=== PATIENT | female | born 1985 | race Hispanic/Latino ===

== ENCOUNTER 2018-03-31 15:54 | Emergency (ER) | payer OTHER ==
--- NOTE | 2018-03-31 16:19 | ER ---
Nurse's Notes [facility] Name: Georgia Viera Age: 32 yrs Sex: Female : 1985 Arrival Date: 03/31/2018 Time: 15:57 Bed 26 Private MD: None, None Diagnosis: Adverse effect of other antidepressants Presentation: 03/31 16:03 Presenting complaint: Patient states: dizziness, no appetite, reports "I feel like I'm sv on a bad trip. I just don't feel right." Pt reports these symptoms after starting Wellbutrin a few days ago. 16:04 Method Of Arrival: Wheelchair sv 16:04 Transition of care: patient was not received from another setting of care. Onset of sv symptoms was March 2018. Note Pt reports that she was also prescribed Xanax and Lisinopril. Pt reports taking 2 tabs BID of Xanax instead of the prescribed amount. Care prior to arrival: None. 16:04 Acuity: MILI 3 sv 16:22 Risk Assessment: Do you want to hurt yourself or someone else? Patient reports no mg2 desire to harm self or others. Initial Sepsis Screen: Does the patient meet any 2 criteria? No. Patient's initial sepsis screen is negative. Does the patient have a suspected source of infection? No. Patient's initial sepsis screen is negative. 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 - Social history:: Smoking status: Patient/guardian denies using tobacco. - Ebola Screening: : No symptoms or risks identified at this time. Screenin:21 Abuse screen: Denies threats or abuse. Denies injuries from another. Nutritional mg2 screening: No deficits noted. Tuberculosis screening: No symptoms or risk factors identified. Fall Risk None identified. Assessment: 16:30 General: Appears in no apparent distress. comfortable, Behavior is calm, cooperative. mg2 Derm: Skin is intact, Skin is pink, warm \\T\\ dry. normal. Musculoskeletal: No signs and/or symptoms reported regarding the musculoskeletal system. 16:45 Pain: Denies pain. Neuro: Level of Consciousness is awake, alert, obeys commands, mg2 Oriented to person, place, time, situation. Cardiovascular: Capillary refill < 3 seconds Patient's skin is warm and dry. Respiratory: Airway is patent Respiratory effort is even, unlabored, Respiratory pattern is regular, symmetrical. GI: No signs and/or symptoms were reported involving the gastrointestinal system. : No signs and/or symptoms were reported regarding the genitourinary system. EENT: No signs and/or symptoms were reported regarding the EENT system. Vital Signs: 16:11 BP 137 / 99; Pulse 98; Resp 20; Pulse Ox 96% ; Weight 86.18 kg; Height 5 ft. 1 in. sv (154.94 cm); Pain 0/10; 16:23 BP 126 / 91 (auto/reg); Pulse 85; Resp 18 S; Pulse Ox 97% on R/A; Pain 0/10; jp3 16:11 Body Mass Index 35.90 (86.18 kg, 154.94 cm) sv ED Course: 15:57 Patient arrived in ED. sb2 15:57 None, None is Private Physician. sb2 16:03 Edith Rosenberg FNP-C [facility]. snw 16:03 Jasper Coleman MD is Attending Physician. snw 16:03 Arm band placed on right wrist. Patient placed in an exam room, on a stretcher. sv 16:10 Reza Heard RN is Primary Nurse. mg2 16:10 Triage completed. sv 16:17 Raj Zamora MD is Referral Physician. snw 16:22 No provider procedures requiring assistance completed. Patient did not have IV access mg2 during this emergency room visit. 16:47 Patient has correct armband on for positive identification. mg2 Administered Medications: No medications were administered Outcome: 16:18 Discharge ordered by . snw 16:47 Discharged to home ambulatory. mg2 16:47 Condition: good 16:47 Discharge instructions given to patient, Instructed on discharge instructions, follow up and referral plans. medication usage, Demonstrated understanding of instructions, follow-up care, medications, Prescriptions given X 1. 16:47 Patient left the ED. mg2 Signatures: Kalpana Marinelli RN RN Edith Rosenberg FNP-C CHIEF ANALYTICS OFFICER-Csnw Roselyn Matute sb2 Reza Heard, RN RN mg2 Juan Diego Colin jp3
--- NOTE | 2018-03-31 16:19 | EDPHYS ---
Physician Documentation [facility] Name: Georgia Viera Age: 32 yrs Sex: Female : 1985 Arrival Date: 03/31/2018 Time: 15:57 Bed 26 Private MD: None, None ED Physician Jasper Coleman HPI: 03/31 16:33 This 32 yrs old Female presents to ER via Wheelchair with complaints of snw Dizziness, Doesn't Feel Right. 16:33 The patient presents with pt states she has taken wellbutrin since , threw the snw medication away yesterday because it was making her feel weird, anxious, difficulty concentrating, nauseated. Pt states she just started Wellbutrin Tuesday. Stopped taking Lunesta recently as it left a bad taste in her mouth. Pt states she ran out of Xanax about a week ago.. Onset: The symptoms/episode began/occurred suddenly, 4 day(s) ago, and became worse. Context: occurred at home. Modifying factors: The symptoms are alleviated by nothing. Associated signs and symptoms: Pertinent positives: agitation, nausea, inability to concentrate, anxious, Pertinent negatives: SI, HI. Patient's baseline: Neuro: alert and fully oriented, Motor: no deficits, Ambulation: walks without assistance, Speech: normal. It is unknown whether or not the patient has had similar symptoms in the past. The patient has been recently seen by a physician: the patient's primary care provider, with similar presenting complaints, placed on Wellbutrin, but the patient's symptoms have worsened. 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 - Social history:: Smoking status: Patient/guardian denies using tobacco. - Ebola Screening: : No symptoms or risks identified at this time. ROS: 16:32 Eyes: Negative for injury, pain, redness, and discharge, ENT: Negative for injury, snw pain, and discharge, Neck: Negative for injury, pain, and swelling, Cardiovascular: Negative for chest pain, palpitations, and edema, Respiratory: Negative for shortness of breath, cough, wheezing, and pleuritic chest pain. 16:32 Back: Negative for injury and pain, : Negative for injury, bleeding, discharge, and swelling, MS/Extremity: Negative for injury and deformity, Skin: Negative for injury, rash, and discoloration, Neuro: Negative for headache, weakness, numbness, tingling, and seizure. 16:32 Constitutional: Positive for fatigue, malaise, poor PO intake. 16:32 Abdomen/GI: Positive for nausea, anorexia. 16:32 Psych: Positive for anxiety, depression, insomnia, Negative for suicide gesture, suicidal ideation. Exam: 16:26 Constitutional: This is a well developed, well nourished patient who is awake, alert, snw and in no acute distress. Head/Face: Normocephalic, atraumatic. Eyes: Pupils equal round and reactive to light, extra-ocular motions intact. Lids and lashes normal. Conjunctiva and sclera are non-icteric and not injected. Cornea within normal limits. Periorbital areas with no swelling, redness, or edema. ENT: Nares patent. No nasal discharge, no septal abnormalities noted. Tympanic membranes are normal and external auditory canals are clear. Oropharynx with no redness, swelling, or masses, exudates, or evidence of obstruction, uvula midline. Mucous membranes moist. Neck: Trachea midline, no thyromegaly or masses palpated, and no cervical lymphadenopathy. Supple, full range of motion without nuchal rigidity, or vertebral point tenderness. No Meningismus. Chest/axilla: Normal chest wall appearance and motion. Nontender with no deformity. No lesions are appreciated. Cardiovascular: Regular rate and rhythm with a normal S1 and S2. No gallops, murmurs, or rubs. Normal PMI, no JVD. No pulse deficits. Respiratory: Lungs have equal breath sounds bilaterally, clear to auscultation and percussion. No rales, rhonchi or wheezes noted. No increased work of breathing, no retractions or nasal flaring. Abdomen/GI: Soft, non-tender, with normal bowel sounds. No distension or tympany. No guarding or rebound. No evidence of tenderness throughout. Back: No spinal tenderness. No costovertebral tenderness. Full range of motion. Skin: Warm, dry with normal turgor. Normal color with no rashes, no lesions, and no evidence of cellulitis. MS/ Extremity: Pulses equal, no cyanosis. Neurovascular intact. Full, normal range of motion. Neuro: Awake and alert, GCS 15, oriented to person, place, time, and situation. Cranial nerves II-XII grossly intact. Motor strength 5/5 in all extremities. Sensory grossly intact. Cerebellar exam normal. Normal gait. Psych: Awake, alert, with orientation to person, place and time. Behavior and affect are within normal limits. Depressed mood, no SI, HI Vital Signs: 16:11 BP 137 / 99; Pulse 98; Resp 20; Pulse Ox 96% ; Weight 86.18 kg; Height 5 ft. 1 in. sv (154.94 cm); Pain 0/10; 16:23 BP 126 / 91 (auto/reg); Pulse 85; Resp 18 S; Pulse Ox 97% on R/A; Pain 0/10; jp3 16:11 Body Mass Index 35.90 (86.18 kg, 154.94 cm) sv MDM: 16:04 Patient medically screened. snw 16:29 Data reviewed: vital signs, nurses notes. Data interpreted: Pulse oximetry: on room air snw is 96 %. Interpretation: normal. Counseling: I had a detailed discussion with the patient and/or guardian regarding: the historical points, exam findings, and any diagnostic results supporting the discharge/admit diagnosis, the presence of at least one elevated blood pressure reading (>120/80) during this emergency department visit, the need for outpatient follow up, for definitive care, to return to the emergency department if symptoms worsen or persist or if there are any questions or concerns that arise at home. Special discussion: I have referred the patient to see his PCP for further evaluation of high blood pressure. Based on the history and exam findings, there is no indication for further emergent testing or inpatient evaluation. I discussed with the patient/guardian the need to see the primary care provider for further evaluation of the symptoms. Administered Medications: No medications were administered Disposition: 04/01 08:26 Co-signature as Attending Physician, Jasper Coleman MD I agree with the assessment and wa plan of care. Disposition: 03/31/18 16:18 Discharged to Home. Impression: Adverse effect of other antidepressants. - Condition is Stable. - Discharge Instructions: Hypertension, Major Depressive Disorder. - Prescriptions for buspirone (bulk) - take 10 milligram by ORAL route 1-3 times daily for 30 days; 90 tablet. - Medication Reconciliation Form, Thank You Letter, Antibiotic Education, Prescription Opioid Use form. - Follow up: Raj Zamora MD; When: 2 - 3 days; Reason: Recheck today's complaints, Continuance of care. Signatures: Kalpana Marinelli, RN RN sv Edith Rosenberg, STATEMENT PROCESSOR-C STATEMENT PROCESSOR-Csnw Jasper Coleman MD MD wa Gardose, Michele, RN RN mg2 Corrections: (The following items were deleted from the chart) 03/31 16:47 16:18 03/31/2018 16:18 Discharged to Home. Impression: Adverse effect of other mg2 antidepressants. Condition is Stable. Forms are Medication Reconciliation Form, Thank You Letter, Antibiotic Education, Prescription Opioid Use. Follow up: Raj Zamora; When: 2 - 3 days; Reason: Recheck today's complaints, Continuance of care. snw
[2018-03-31 16:54] VITALS: BP 126/91; O2SAT 97
== END 2018-03-31 16:47 | disposition home or self-care (01) ==
LOC: ER 15:54
DX: R42 Dizziness and giddiness (principal); F32.9 Major depressive disorder, single episode, unspecified; I10 Essential (primary) hypertension; T43.295A Adverse effect of other antidepressants, initial encounter
CPT/HCPCS: 99282

== ENCOUNTER 2018-09-01 13:24 | Emergency (ER) | payer OTHER ==
[2018-09-01 14:07] LABS: Absolute Lymphocytes (CBC) 1.2 K/uL (0.7-4.9); Absolute Monocytes 0.4 K/uL (0.1-1.3); Absolute Neutrophil 5.4 K/uL (1.8-8.0); Basophils % 0.8 % (0-1.3); Eosinophils % 2.5 % (0-4.4); Lymphocytes % 16.9 % (15.3-44.8); MPV 9.7 fL (7.6-11.3); Monocytes % 5.8 % (3.3-12.3); RBC Red Blood Cell Count 4.08 M/uL (3.86-4.86)
[2018-09-01 14:29] LABS: ALT/SGPT 19 U/L (12-78); AST/SGOT 10 U/L (15-37); Albumin 3.2 g/dL (3.4-5.0); Alkaline Phosphatase 78 U/L (45-117); BUN Blood Urea Nitrogen 16 mg/dL (7-18); Bicarbonate 27 mmol/L (21-32); Bilirubin Direct < 0.1 mg/dL (0-0.2); Bilirubin Total 0.1 mg/dL (0.2-1.0); Glucose Level 97 mg/dL (74-106); Magnesium 2.1 mg/dL (1.8-2.4); Potassium 3.8 mmol/L (3.5-5.1); Protein, Total 6.4 g/dL (6.4-8.2); Sodium Level 143 mmol/L (136-145); Troponin (Emerg Dept Use Only) < 0.02 ng/mL (0.0-0.045)
--- NOTE | 2018-09-01 14:36 | RAD REPORT ---
EXAM DESCRIPTION: RAD - Chest Single View - 09/01/2018 2:09 pm CLINICAL HISTORY: CHEST PAIN Chest pain. COMPARISON: No comparisons FINDINGS: Portable technique limits examination quality. The lungs are grossly clear. The heart is normal in size. No displaced fractures. IMPRESSION: No acute intrathoracic process suspected.
--- NOTE | 2018-09-01 15:03 | EDPHYS ---
Physician Documentation [facility] Name: Georgia Viera Age: 32 yrs Sex: Female : 1985 Arrival Date: 09/01/2018 Time: 13:27 Bed 23 Private MD: ED Physician Neena De La Garza HPI: 09/01 13:50 This 32 yrs old Female presents to ER via Ambulatory with complaints of Chest pm1 Pain. 13:50 The patient or guardian reports chest pain that is located primarily in the mid-sternal pm1 area. The pain does not radiate. Associated signs and symptoms: The patient has no apparent associated signs or symptoms, Pertinent negatives: abdominal pain, cough, diaphoresis, dizziness, headache, lightheadedness, nausea, near syncope, palpitations, shortness of breath, vomiting. The chest pain is described as burning. Duration: The patient or guardian reports a single episode. Modifying factors: the symptoms are aggravated by deep breath, eating, movement. Severity of pain: in the emergency department the pain is unchanged despite home interventions, Tums, Maalox not working. The patient has not experienced similar symptoms in the past. The patient has not recently seen a physician. 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 - Social history:: Smoking status: . - Ebola Screening: : Patient denies travel to an Ebola-affected area in the 21 days before illness onset. ROS: 13:50 Constitutional: Negative for fever, chills, and weight loss, Eyes: Negative for injury, pm1 pain, redness, and discharge, ENT: Negative for injury, pain, and discharge, Neck: Negative for injury, pain, and swelling, Respiratory: Negative for shortness of breath, cough, wheezing, and pleuritic chest pain, Abdomen/GI: Negative for abdominal pain, nausea, vomiting, diarrhea, and constipation. 13:50 Back: Negative for injury and pain, : Negative for injury, bleeding, discharge, and swelling, MS/Extremity: Negative for injury and deformity, Skin: Negative for injury, rash, and discoloration, Neuro: Negative for headache, weakness, numbness, tingling, and seizure. 13:50 Cardiovascular: Positive for chest pain, Negative for edema, orthopnea, palpitations. Exam: 13:50 Constitutional: This is a well developed, well nourished patient who is awake, alert, pm1 and in no acute distress. Head/Face: Normocephalic, atraumatic. Eyes: Pupils equal round and reactive to light, extra-ocular motions intact. Lids and lashes normal. Conjunctiva and sclera are non-icteric and not injected. Cornea within normal limits. Periorbital areas with no swelling, redness, or edema. ENT: Nares patent. No nasal discharge, no septal abnormalities noted. Tympanic membranes are normal and external auditory canals are clear. Oropharynx with no redness, swelling, or masses, exudates, or evidence of obstruction, uvula midline. Mucous membranes moist. Neck: Trachea midline, no thyromegaly or masses palpated, and no cervical lymphadenopathy. Supple, full range of motion without nuchal rigidity, or vertebral point tenderness. No Meningismus. 13:50 Cardiovascular: Regular rate and rhythm with a normal S1 and S2. No gallops, murmurs, or rubs. Normal PMI, no JVD. No pulse deficits. Respiratory: Lungs have equal breath sounds bilaterally, clear to auscultation and percussion. No rales, rhonchi or wheezes noted. No increased work of breathing, no retractions or nasal flaring. Abdomen/GI: Soft, non-tender, with normal bowel sounds. No distension or tympany. No guarding or rebound. No evidence of tenderness throughout. Back: No spinal tenderness. No costovertebral tenderness. Full range of motion. Skin: Warm, dry with normal turgor. Normal color with no rashes, no lesions, and no evidence of cellulitis. MS/ Extremity: Pulses equal, no cyanosis. Neurovascular intact. Full, normal range of motion. 13:50 Chest/axilla: Inspection: normal, Palpation: tenderness, of the mid-sternal area. 13:50 Neuro: Orientation: is normal, Motor: is normal, moves all fours, Gait: is steady, at a normal pace, without difficulty. Vital Signs: 13:31 BP 104 / 73; Pulse 96; Resp 18; Temp 98.7; Pulse Ox 100% ; Weight 86.18 kg; Height 5 sv ft. 1 in. (154.94 cm); Pain 8/10; 14:20 BP 107 / 73; Pulse 82; Resp 15; Pulse Ox 100% on R/A; tw2 15:24 BP 109 / 64; Pulse 79; Resp 17; Pulse Ox 100% on R/A; tw2 13:31 Body Mass Index 35.90 (86.18 kg, 154.94 cm) sv MDM: 13:37 Patient medically screened. pm1 15:02 Data reviewed: vital signs. Data interpreted: Pulse oximetry: on room air is 100 %. pm1 Interpretation: normal. Counseling: I had a detailed discussion with the patient and/or guardian regarding: the historical points, exam findings, and any diagnostic results supporting the discharge/admit diagnosis, lab results, radiology results, the need for outpatient follow up, to return to the emergency department if symptoms worsen or persist or if there are any questions or concerns that arise at home. 09/01 13:41 Order name: Basic Metabolic Panel pm09/01 13:41 Order name: CBC with Diff pm09/01 13:41 Order name: LFT's pm09/01 13:41 Order name: Magnesium pm09/01 13:41 Order name: Troponin (emerg Dept Use Only) pm1 09/01 14:11 Order name: CBC with Automated Diff; Complete Time: 14:15 EDMS 09/01 13:41 Order name: XRAY Chest (1 view) pm09/01 14:29 Order name: Basic Metabolic Panel; Complete Time: 14:39 EDMS 09/01 14:29 Order name: Liver (Hepatic) Function; Complete Time: 14:39 EDMS 09/01 14:29 Order name: Troponin (Emerg Dept Use Only); Complete Time: 14:39 EDMS 09/01 14:29 Order name: Magnesium; Complete Time: 14:39 EDMS 09/01 14:37 Order name: RAD; Complete Time: 14:39 EDMS 09/01 13:41 Order name: EKG; Complete Time: 13:42 pm1 09/01 13:41 Order name: Cardiac monitoring; Complete Time: 13:41 pm1 09/01 13:41 Order name: EKG - Nurse/Tech; Complete Time: 13:42 pm1 09/01 13:41 Order name: IV Saline Lock; Complete Time: 13:50 pm1 09/01 13:41 Order name: Labs collected and sent; Complete Time: 13:50 pm1 09/01 13:41 Order name: O2 Per Protocol; Complete Time: 13:42 pm1 09/01 13:41 Order name: O2 Sat Monitoring; Complete Time: 13:42 pm1 Administered Medications: 15:01 Drug: GI Cocktail without - (Maalox Suspension 30 ml, Lidocaine Liquid 2 % 15 mg2 ml) Route: PO; 15:17 Follow up: Response: No adverse reaction; Pain is decreased tw2 15:18 Drug: Pepcid 20 mg Route: IVP; Site: right antecubital; tw2 15:24 Follow up: Response: No adverse reaction tw2 Disposition: 16:45 Co-signature as Attending Physician, Neena De La Garza MD. [facility] Disposition: 09/01/18 15:03 Discharged to Home. Impression: Chest pain, unspecified. - Condition is Stable. - Discharge Instructions: Nonspecific Chest Pain. - Prescriptions for Pepcid 20 mg Oral Tablet - take 1 tablet by ORAL route every 12 hours for 10 days; 20 tablet. - Medication Reconciliation Form, Thank You Letter, Antibiotic Education, Prescription Opioid Use, Work release form form. - Follow up: Emergency Department; When: As needed; Reason: Worsening of condition. Follow up: Private Physician; When: 2 - 3 days; Reason: Recheck today's complaints, Continuance of care, Re-evaluation by your physician. - Problem is new. - Symptoms have improved. Signatures: Dispatcher [employer] EDMS Kalpana Marinelli RN JEFF sv Tiago Ross, MARIFER REMOTE PILOT OPERATOR pm1 Almaz Chou RN RN tw2 Neena De La Garza MD MD ma2 Reza Heard RN RN mg2 Corrections: (The following items were deleted from the chart) 15:25 15:03 09/01/2018 15:03 Discharged to Home. Impression: Chest pain, unspecified. tw2 Condition is Stable. Forms are Medication Reconciliation Form, Thank You Letter, Antibiotic Education, Prescription Opioid Use. Follow up: Emergency Department; When: As needed; Reason: Worsening of condition. Follow up: Private Physician; When: 2 - 3 days; Reason: Recheck today's complaints, Continuance of care, Re-evaluation by your physician. Problem is new. Symptoms have improved. pm1
--- NOTE | 2018-09-01 15:03 | ER ---
Nurse's Notes [facility] Name: Georgia Viera Age: 32 yrs Sex: Female : 1985 Arrival Date: 09/01/2018 Time: 13:27 Bed 23 Private MD: Diagnosis: Chest pain, unspecified Presentation: 09/01 13:30 Presenting complaint: Patient states: midsternal chest pain x 1 week, movement makes it sv worse and I've tried taking reflux meds and gas-x and tums with no relief. Transition of care: patient was not received from another setting of care. Onset of symptoms was August 25, 2018. Care prior to arrival: None. 13:30 Method Of Arrival: Ambulatory sv 13:30 Acuity: MILI 3 sv 13:35 Risk Assessment: Do you want to hurt yourself or someone else? Patient reports no tw2 desire to harm self or others. Initial Sepsis Screen: Does the patient meet any 2 criteria? No. Patient's initial sepsis screen is negative. Does the patient have a suspected source of infection? No. Patient's initial sepsis screen is negative. Triage Assessment: 13:32 General: Appears in no apparent distress. uncomfortable, Behavior is calm, cooperative, sv appropriate for age. Pain: Complains of pain in mid-sternal area Pain currently is 8 out of 10 on a pain scale. Neuro: Level of Consciousness is awake, alert, obeys commands, Oriented to person, place, time, situation, Moves all extremities. Full function Gait is steady. Respiratory: Airway is patent Respiratory effort is even, unlabored, Respiratory pattern is regular, symmetrical. 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 - Social history:: Smoking status: . - Ebola Screening: : Patient denies travel to an Ebola-affected area in the 21 days before illness onset. Screenin:35 Abuse screen: Denies threats or abuse. Nutritional screening: No deficits noted. tw2 Tuberculosis screening: No symptoms or risk factors identified. Fall Risk None identified. Assessment: 13:36 Pain: Pain does not radiate. Pain began 1 week ago. tw2 13:36 General: Appears in no apparent distress. Behavior is calm, cooperative, appropriate tw2 for age. Pain: Complains of pain in mid-sternal area. Neuro: Level of Consciousness is awake, alert, obeys commands, Oriented to person, place, time, situation. Cardiovascular: Reports chest pain, Heart tones S1 S2 Patient's skin is warm and dry. Respiratory: Airway is patent Respiratory effort is even, unlabored, Respiratory pattern is regular, symmetrical, Breath sounds are clear bilaterally. GI: No signs and/or symptoms were reported involving the gastrointestinal system. Abdomen is flat, Bowel sounds present X 4 quads. : No signs and/or symptoms were reported regarding the genitourinary system. EENT: No signs and/or symptoms were reported regarding the EENT system. Derm: No signs and/or symptoms reported regarding the dermatologic system. Musculoskeletal: Range of motion: intact in all extremities. 13:39 Reassessment: provider at bedside at this time. tw2 13:59 Reassessment: xray at bedside at this time. tw2 14:20 Reassessment: Patient appears in no apparent distress at this time. No changes from tw2 previously documented assessment. Patient and/or family updated on plan of care and expected duration. Pain level reassessed. Patient is alert, oriented x 3, equal unlabored respirations, skin warm/dry/pink. 15:23 Reassessment: Patient appears in no apparent distress at this time. Patient and/or tw2 family updated on plan of care and expected duration. Pain level reassessed. Patient is alert, oriented x 3, equal unlabored respirations, skin warm/dry/pink. Patient states feeling better. Patient states symptoms have improved. Vital Signs: 13:31 BP 104 / 73; Pulse 96; Resp 18; Temp 98.7; Pulse Ox 100% ; Weight 86.18 kg; Height 5 sv ft. 1 in. (154.94 cm); Pain 8/10; 14:20 BP 107 / 73; Pulse 82; Resp 15; Pulse Ox 100% on R/A; tw2 15:24 BP 109 / 64; Pulse 79; Resp 17; Pulse Ox 100% on R/A; tw2 13:31 Body Mass Index 35.90 (86.18 kg, 154.94 cm) sv ED Course: 13:27 Patient arrived in ED. as 13:31 Triage completed. sv 13:32 Arm band placed on. sv 13:34 Almaz Chou, RN is Primary Nurse. tw2 13:35 Bed in low position. Call light in reach. Adult w/ patient. snag grinder on. Pulse tw2 ox on. NIBP on. 13:35 Patient maintains SpO2 saturation greater than 95% on room air. tw2 13:36 Tiago Ross, MARIFER is PHCP. pm1 13:36 Neena De La Garza MD is Attending Physician. pm1 13:45 Inserted saline lock: 22 gauge in right antecubital area, using aseptic technique. tw2 Blood collected. 13:54 EKG done, by surg tech. reviewed by Tiago Ross NP. sm3 15:05 Awaiting: f/u evaluation of GI cocktail prior to discharge. tw2 15:24 No provider procedures requiring assistance completed. IV discontinued, intact, tw2 bleeding controlled, No redness/swelling at site. Pressure dressing applied. Administered Medications: 15:01 Drug: GI Cocktail without - (Maalox Suspension 30 ml, Lidocaine Liquid 2 % 15 mg2 ml) Route: PO; 15:17 Follow up: Response: No adverse reaction; Pain is decreased tw2 15:18 Drug: Pepcid 20 mg Route: IVP; Site: right antecubital; tw2 15:24 Follow up: Response: No adverse reaction tw2 Outcome: 15:03 Discharge ordered by MD. pm1 15:24 Discharged to home ambulatory. tw2 15:24 Condition: stable 15:24 Discharge instructions given to patient, Instructed on discharge instructions, follow up and referral plans. medication usage, Demonstrated understanding of instructions, follow-up care, medications, Prescriptions given X 1. 15:25 Patient left the ED. tw2 Signatures: Kalpana Marinelli RN RN sv Martinez, Amelia as Tiago Ross, COAT OPERATOR COAT OPERATOR pm1 Almaz Chou RN RN tw2 Reza Heard RN RN mg2 Shabnam Vazquez sm3 Corrections: (The following items were deleted from the chart) 13:33 13:31 Pulse 96bpm; Resp 18bpm; Pulse Ox 100%; Temp 98.7F; 86.18 kg; Height 5 ft. 1 in.; sv BMI: 35.9; Pain 8/10; sv
[2018-09-01] MEDS ORDERED: LIDOCAINE VISCOUS 2% SOLN 15 ML UDC ONE (15:07)
[2018-09-01] MEDS ORDERED: MAGNE/ALUM HYDROXD 30 ML UCUP ONE (15:07)
[2018-09-01] MEDS ORDERED: FAMOTIDINE 20 MG/2 ML VIAL IV ONE (15:27)
[2018-09-01 15:45] VITALS: O2SAT 100
[2018-09-01 15:46] VITALS: TEMP 98.7
[2018-09-01 15:48] VITALS: BP 109/64
--- NOTE | 2018-09-01 21:21 | EKG ---
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
== END 2018-09-01 15:25 | disposition home or self-care (01) ==
LOC: ER 13:24
DX: R07.9 Chest pain, unspecified (principal); I10 Essential (primary) hypertension; F32.9 Major depressive disorder, single episode, unspecified
CPT/HCPCS: 36415; 71045; 80048; 80076; 83735; 84484; 85025; 93005; 96374; 99285

== ENCOUNTER 2018-09-16 20:37 | Emergency (ER) | payer OTHER ==
--- NOTE | 2018-09-16 21:18 | ER ---
Nurse's Notes [facility] Name: Georgia Viera Age: 33 yrs Sex: Female : 1985 Arrival Date: 09/16/2018 Time: 20:40 Bed 20 Private MD: Diagnosis: Diarrhea, unspecified;Vomiting, unspecified Presentation: 09/16 20:46 Presenting complaint: Patient states: I have been vomiting and having diarrhea for the jb4 past 2 days. and started having chills today. I came in because I noticed I had "black stuff" on my tongue. 20:46 Transition of care: patient was not received from another setting of care. Onset of jb4 symptoms was September 14, 2018. Risk Assessment: Do you want to hurt yourself or someone else? Patient reports no desire to harm self or others. Initial Sepsis Screen: Does the patient meet any 2 criteria? No. Patient's initial sepsis screen is negative. Does the patient have a suspected source of infection? No. Patient's initial sepsis screen is negative. Care prior to arrival: None. 20:46 Method Of Arrival: Ambulatory jb4 20:46 Acuity: MILI 3 jb4 Triage Assessment: 20:46 General: Appears in no apparent distress. comfortable, Behavior is calm, cooperative, jb4 appropriate for age, Pt reports taking Pepto-Bismol . Pain: Complains of pain in abdomen Pain does not radiate. Pain currently is 0 out of 10 on a pain scale. at worst was 8 out of 10 on a pain scale. Quality of pain is described as crampy, Pain began 2-3 days ago. Is intermittent. EENT: tongue has black on it.. Neuro: Level of Consciousness is awake, alert, obeys commands, Oriented to person, place, time, situation. Cardiovascular: Patient's skin is warm and dry. Respiratory: Airway is patent Respiratory effort is even, unlabored, Respiratory pattern is regular, symmetrical. GI: Reports lower abdominal pain, upper abdominal pain, diarrhea, nausea, vomiting. : No signs and/or symptoms were reported regarding the genitourinary system. Derm: Skin is intact, Skin is pink, warm \\T\\ dry. Musculoskeletal: Circulation, motion, and sensation intact. 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 - Social history:: Smoking status: Patient uses tobacco products, 1 pack per week. - Ebola Screening: : No symptoms or risks identified at this time. Screenin:46 Abuse screen: Denies threats or abuse. Nutritional screening: No deficits noted. jb4 Tuberculosis screening: No symptoms or risk factors identified. Fall Risk None identified. Assessment: 20:46 General: See triage assessment.. jb4 21:31 Reassessment: Patient appears in no apparent distress at this time. Patient and/or jb4 family updated on plan of care and expected duration. Pain level reassessed. Patient is alert, oriented x 3, equal unlabored respirations, skin warm/dry/pink. Vital Signs: 20:46 BP 109 / 72; Pulse 71; Resp 18; Temp 98.5(O); Pulse Ox 99% on R/A; Weight 83.91 kg (R); jb4 Height 5 ft. 1 in. (154.94 cm) (R); Pain 0/10; 21:30 BP 109 / 68; Pulse 76; Resp 16; Pulse Ox 100% on R/A; jb4 20:46 Body Mass Index 34.96 (83.91 kg, 154.94 cm) jb4 ED Course: 20:40 Patient arrived in ED. es 20:46 Malcolm Coleman, RN is Primary Nurse. jb4 20:46 Arm band placed on left wrist. jb4 20:46 Patient has correct armband on for positive identification. Bed in low position. Call jb4 light in reach. Side rails up X 1. Pulse ox on. NIBP on. 20:52 [facility]-C [facility]. snw 20:52 Antoni Meek MD is Attending Physician. snw 20:57 Triage completed. jb4 21:33 No provider procedures requiring assistance completed. Patient did not have IV access jb4 during this emergency room visit. Administered Medications: 21:27 Drug: Zofran 4 mg Route: PO; jb4 21:30 Follow up: Response: No adverse reaction; Nausea is decreased jb4 Outcome: 21:17 Discharge ordered by MD. addison 21:33 Discharged to home ambulatory. jb4 21:33 Condition: stable 21:33 Discharge instructions given to patient, Instructed on discharge instructions, follow up and referral plans. medication usage, Demonstrated understanding of instructions, follow-up care, medications. 21:34 Patient left the ED. jb4 Signatures: Edith Rosenberg, RAIL DETECTOR CAR OPERATOR-C RAIL DETECTOR CAR OPERATOR-Csnw Madai Jha James, RN RN jb4
--- NOTE | 2018-09-16 21:18 | EDPHYS ---
Physician Documentation [facility] Name: Georgia Viera Age: 33 yrs Sex: Female : 1985 Arrival Date: 09/16/2018 Time: 20:40 Bed 20 Private MD: ED Physician Antoni Meek HPI: 09/16 21:15 This 33 yrs old Female presents to ER via Ambulatory with complaints of snw Vomiting/Diarrhea, CHILLS. 21:15 The patient presents to the emergency department with vomiting, diarrhea. Onset: The snw symptoms/episode began/occurred suddenly, 2 day(s) ago, and became persistent. Possible causes: sick contacts, works at [employer]. The symptoms are aggravated by nothing. Associated signs and symptoms: Pertinent positives: diarrhea, vomiting, Pertinent negatives: abdominal pain, GI bleeding. Severity of symptoms: At their worst the symptoms were mild moderate in the emergency department the symptoms are unchanged. It is unknown whether or not the patient has had similar symptoms in the past. The patient has not recently seen a physician. 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 - Social history:: Smoking status: Patient uses tobacco products, 1 pack per week. - Ebola Screening: : No symptoms or risks identified at this time. ROS: 21:11 Constitutional: Negative for fever, chills, and weight loss, Eyes: Negative for injury, snw pain, redness, and discharge, ENT: Negative for injury, pain, and discharge, Neck: Negative for injury, pain, and swelling, Cardiovascular: Negative for chest pain, palpitations, and edema, Respiratory: Negative for shortness of breath, cough, wheezing, and pleuritic chest pain, Abdomen/GI: Negative for abdominal pain, nausea, and constipation, + vomiting and diarrhea Back: Negative for injury and pain, : Negative for injury, bleeding, discharge, and swelling, MS/Extremity: Negative for injury and deformity, Skin: Negative for injury, rash, and discoloration, Neuro: Negative for headache, weakness, numbness, tingling, and seizure. Exam: 21:11 Constitutional: This is a well developed, well nourished patient who is awake, alert, snw and in no acute distress. Head/Face: Normocephalic, atraumatic. Eyes: Pupils equal round and reactive to light, extra-ocular motions intact. Lids and lashes normal. Conjunctiva and sclera are non-icteric and not injected. Cornea within normal limits. Periorbital areas with no swelling, redness, or edema. ENT: Nares patent. No nasal discharge, no septal abnormalities noted. Tympanic membranes are normal and external auditory canals are clear. Oropharynx with no redness, swelling, or masses, exudates, or evidence of obstruction, uvula midline. Mucous membranes moist. Neck: Trachea midline, no thyromegaly or masses palpated, and no cervical lymphadenopathy. Supple, full range of motion without nuchal rigidity, or vertebral point tenderness. No Meningismus. Chest/axilla: Normal chest wall appearance and motion. Nontender with no deformity. No lesions are appreciated. Cardiovascular: Regular rate and rhythm with a normal S1 and S2. No gallops, murmurs, or rubs. Normal PMI, no JVD. No pulse deficits. Respiratory: Lungs have equal breath sounds bilaterally, clear to auscultation and percussion. No rales, rhonchi or wheezes noted. No increased work of breathing, no retractions or nasal flaring. Abdomen/GI: Soft, non-tender, with normal bowel sounds. No distension or tympany. No guarding or rebound. No evidence of tenderness throughout. Back: No spinal tenderness. No costovertebral tenderness. Full range of motion. Skin: Warm, dry with normal turgor. Normal color with no rashes, no lesions, and no evidence of cellulitis. MS/ Extremity: Pulses equal, no cyanosis. Neurovascular intact. Full, normal range of motion. Neuro: Awake and alert, GCS 15, oriented to person, place, time, and situation. Cranial nerves II-XII grossly intact. Motor strength 5/5 in all extremities. Sensory grossly intact. Cerebellar exam normal. Normal gait. Vital Signs: 20:46 BP 109 / 72; Pulse 71; Resp 18; Temp 98.5(O); Pulse Ox 99% on R/A; Weight 83.91 kg (R); jb4 Height 5 ft. 1 in. (154.94 cm) (R); Pain 0/10; 21:30 BP 109 / 68; Pulse 76; Resp 16; Pulse Ox 100% on R/A; jb4 20:46 Body Mass Index 34.96 (83.91 kg, 154.94 cm) jb4 MDM: 21:04 Patient medically screened. snw 21:29 Data reviewed: vital signs, nurses notes. Data interpreted: Pulse oximetry: on room air snw is 99 %. Interpretation: normal. Counseling: I had a detailed discussion with the patient and/or guardian regarding: the historical points, exam findings, and any diagnostic results supporting the discharge/admit diagnosis, lab results, the need for outpatient follow up, to return to the emergency department if symptoms worsen or persist or if there are any questions or concerns that arise at home. Special discussion: Based on the patient's Hx, exam, and Dx evaluation, there is no indication for emergent surgery or inpatient Tx. It is understood by the patient/guardian that if the Sx's persist or worsen they need to return immediately for re-evaluation. Based on the history and exam findings, there is no indication for further emergent testing or inpatient evaluation. I discussed with the patient/guardian the need to see the primary care provider for further evaluation of the symptoms. 09/16 20:46 Order name: Flu snw Administered Medications: 21:27 Drug: Zofran 4 mg Route: PO; [facility] 21:30 Follow up: Response: No adverse reaction; Nausea is decreased [facility] Disposition: 22:24 Co-signature as Attending Physician, Antoni Meek MD. pkl Disposition: 09/16/18 21:17 Discharged to Home. Impression: Diarrhea, unspecified, Vomiting, unspecified. - Condition is Stable. - Discharge Instructions: Food Choices to Help Relieve Diarrhea, Adult, Diarrhea, Adult, Nausea and Vomiting, Adult, Rehydration, Adult. - Prescriptions for Zofran 4 mg Oral Tablet - take 1 tablet by ORAL route every 12 hours As needed; 20 tablet. - Work release form, Medication Reconciliation Form, Thank You Letter, Antibiotic Education, Prescription Opioid Use form. - Follow up: Private Physician; When: 2 - 3 days; Reason: Recheck today's complaints, Continuance of care, Re-evaluation by your physician. Follow up: Emergency Department; When: As needed; Reason: Worsening of condition. Signatures: Dispatcher [employer] Antoni Laguna MD MD pkl Therrien, Shelly, MANAGER PRESENTATION-C MANAGER PRESENTATION-Csnw Malcolm Coleman, RN RN jb4 Corrections: (The following items were deleted from the chart) 21:34 21:17 09/16/2018 21:17 Discharged to Home. Impression: Diarrhea, unspecified; Vomiting, jb4 unspecified. Condition is Stable. Forms are Medication Reconciliation Form, Thank You Letter, Antibiotic Education, Prescription Opioid Use. Follow up: Private Physician; When: 2 - 3 days; Reason: Recheck today's complaints, Continuance of care, Re-evaluation by your physician. Follow up: Emergency Department; When: As needed; Reason: Worsening of condition. snw
[2018-09-16] MEDS ORDERED: ONDANSETRON 4 MG (ODT) TAB ONE (21:35)
[2018-09-16 22:39] VITALS: TEMP 98.5
[2018-09-16 22:40] VITALS: BP 109/68; O2SAT 100
== END 2018-09-16 21:34 | disposition home or self-care (01) ==
LOC: ER 20:37
DX: R19.7 Diarrhea, unspecified (principal); I10 Essential (primary) hypertension; F32.9 Major depressive disorder, single episode, unspecified; Z72.0 Tobacco use
CPT/HCPCS: 87804; 99283

== ENCOUNTER 2018-09-20 15:54 | Emergency (ER) | payer OTHER ==
[2018-09-20] MEDS ORDERED: NA CHLORIDE 0.9% 1,000 ML ONE (18:07)
[2018-09-20 18:09] LABS: Absolute Lymphocytes (CBC) 1.3 K/uL (0.7-4.9); Absolute Monocytes 0.5 K/uL (0.1-1.3); Absolute Neutrophil 4.9 K/uL (1.8-8.0); Basophils % 1.2 % (0-1.3); Eosinophils % 2.2 % (0-4.4); Lymphocytes % 18.3 % (15.3-44.8); MPV 9.6 fL (7.6-11.3); Monocytes % 7.3 % (3.3-12.3); RBC Red Blood Cell Count 4.47 M/uL (3.86-4.86)
[2018-09-20 18:25] LABS: ALT/SGPT 13 U/L (12-78); AST/SGOT 5 U/L (15-37); Albumin 3.2 g/dL (3.4-5.0); Alkaline Phosphatase 67 U/L (45-117); BUN Blood Urea Nitrogen 9 mg/dL (7-18); Bicarbonate 25 mmol/L (21-32); Bilirubin Total 0.3 mg/dL (0.2-1.0); Glucose Level 88 mg/dL (74-106); Potassium 3.4 mmol/L (3.5-5.1); Protein, Total 6.3 g/dL (6.4-8.2); Sodium Level 143 mmol/L (136-145)
--- NOTE | 2018-09-20 19:05 | ER ---
Nurse's Notes [facility] Name: Georgia Viera Age: 33 yrs Sex: Female : 1985 Arrival Date: 09/20/2018 Time: 15:59 Bed 25 Private MD: None, None Diagnosis: Diarrhea, unspecified;Nausea Presentation: 09/20 16:05 Presenting complaint: N/D and upper abdominal pain x 6 days. Transition of care: hb patient was not received from another setting of care. Onset of symptoms was September 14, 2018. Risk Assessment: Do you want to hurt yourself or someone else? Patient reports no desire to harm self or others. Care prior to arrival: None. 16:05 Method Of Arrival: Ambulatory hb 16:05 Acuity: MILI 3 hb 17:30 Initial Sepsis Screen: Does the patient meet any 2 criteria? No. Patient's initial ca1 sepsis screen is negative. Does the patient have a suspected source of infection? No. Patient's initial sepsis screen is negative. 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 - Social history:: Smoking status: Patient uses tobacco products, denies chronic smoking, but will smoke occasionally. - Ebola Screening: : No symptoms or risks identified at this time. Screenin:29 Abuse screen: Denies threats or abuse. Denies injuries from another. Nutritional ca1 screening: No deficits noted. Tuberculosis screening: No symptoms or risk factors identified. 17:30 Fall Risk None identified. ca1 Assessment: 17:29 General: Appears in no apparent distress. uncomfortable, Behavior is calm, cooperative, ca1 appropriate for age. Pain: Complains of pain in abdomen Pain radiates to back Pain at worst was 3 out of 10 on a pain scale. Quality of pain is described as crampy, Pain began 1 week ago. Neuro: Level of Consciousness is awake, alert, obeys commands, Oriented to person, place, time, situation. Cardiovascular: Heart tones S1 S2 present Capillary refill < 3 seconds Patient's skin is warm and dry. Respiratory: Airway is patent Trachea midline Respiratory effort is even, unlabored, Respiratory pattern is regular, symmetrical, Breath sounds are clear bilaterally. GI: Abdomen is round non-distended, Bowel sounds present X 4 quads. Abd is soft Abdomen is tender to palpation in right upper quadrant and left upper quadrant Reports cramping, diarrhea, nausea, vomiting. : No signs and/or symptoms were reported regarding the genitourinary system. EENT: No signs and/or symptoms were reported regarding the EENT system. Derm: Skin is intact, is healthy with good turgor, Skin is pink, warm \T\ dry. Musculoskeletal: Circulation, motion, and sensation intact. 18:42 Reassessment: Patient appears in no apparent distress at this time. Patient and/or ca1 family updated on plan of care and expected duration. Pain level reassessed. Patient is alert, oriented x 3, equal unlabored respirations, skin warm/dry/pink. 19:30 Reassessment: Patient appears in no apparent distress at this time. Patient is alert, ca1 oriented x 3, equal unlabored respirations, skin warm/dry/pink. Vital Signs: 16:06 BP 132 / 88; Pulse 91; Resp 16; Temp 97.8; Pulse Ox 100% on R/A; Pain 1/10; hb 17:32 BP 112 / 71; Pulse 67; Resp 18; Pulse Ox 100% on R/A; ca1 18:42 BP 115 / 70; Pulse 77; Resp 19; Pulse Ox 100% on R/A; ca1 19:30 BP 121 / 73; Pulse 75; Resp 17; Pulse Ox 100% on R/A; ca1 ED Course: 15:59 Patient arrived in ED. sb2 15:59 None, None is Private Physician. sb2 16:06 Triage completed. hb 16:06 Arm band placed on right wrist. hb 17:27 Tiago Ross NP is PHCP. pm1 17:27 Krystian Benítez MD is Attending Physician. pm1 17:29 Tereza Huber, JEFF is Primary Nurse. ca1 17:29 Patient has correct armband on for positive identification. Pulse ox on. NIBP on. Warm ca1 blanket given. 17:50 Inserted saline lock: 20 gauge in right antecubital area, using aseptic technique. ca1 Blood collected. 19:35 No provider procedures requiring assistance completed. IV discontinued, intact, ca1 bleeding controlled, No redness/swelling at site. Pressure dressing applied. Administered Medications: 17:56 Drug: NS 0.9% 1000 ml Route: IV; Rate: 1000 ml; Site: right antecubital; ca1 18:50 Follow up: Response: No adverse reaction; IV Status: Completed infusion ca1 Outcome: 19:04 Discharge ordered by . pm1 19:35 Discharged to home ambulatory. ca1 19:35 Condition: stable 19:35 Discharge instructions given to patient, Instructed on discharge instructions, follow up and referral plans. medication usage, Demonstrated understanding of instructions, follow-up care, medications, Prescriptions given X 1. 19:35 Patient left the ED. ca1 Signatures: Tiago Ross NP CONVENTION MANAGER pm1 Karen Chau, RN RN Roselyn Matute sb2 Tereza Huber RN RN ca1
--- NOTE | 2018-09-20 19:05 | EDPHYS ---
Physician Documentation [facility] Name: Georgia Viera Age: 33 yrs Sex: Female : 1985 Arrival Date: 09/20/2018 Time: 15:59 Bed 25 Private MD: None, None ED Physician Krystian Benítez HPI: 09/20 18:00 This 33 yrs old Female presents to ER via Ambulatory with complaints of pm1 Diarrhea, Nausea. 18:00 The patient presents to the emergency department with nausea, diarrhea, 3 times per pm1 day. Down from 4-5 times per day. Patient with nausea but no vomiting. Patient with diarrhea for 7 days. Onset: The symptoms/episode began/occurred 1 week(s) ago. Possible causes: unknown. The symptoms are aggravated by nothing. The symptoms are alleviated by OTC meds, Pepto Bismol. Associated signs and symptoms: Pertinent positives: diarrhea, nausea, Pertinent negatives: abdominal pain, fever, vomiting. Severity of symptoms: in the emergency department the symptoms have improved. The patient has not experienced similar symptoms in the past. The patient has been recently seen at the [facility] Emergency Department, 4 days ago for the same symptoms. 18:00 Patient took Zofran for nausea prior to arrival along with Pepto Bismol which has pm1 helped with abdominal cramping with diarrhea. 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 - Social history:: Smoking status: Patient uses tobacco products, denies chronic smoking, but will smoke occasionally. - Ebola Screening: : No symptoms or risks identified at this time. ROS: 18:00 Constitutional: Negative for fever, chills, and weight loss, Eyes: Negative for injury, pm1 pain, redness, and discharge, ENT: Negative for injury, pain, and discharge, Neck: Negative for injury, pain, and swelling, Cardiovascular: Negative for chest pain, palpitations, and edema, Respiratory: Negative for shortness of breath, cough, wheezing, and pleuritic chest pain. 18:00 Back: Negative for injury and pain, : Negative for injury, bleeding, discharge, and swelling, MS/Extremity: Negative for injury and deformity, Skin: Negative for injury, rash, and discoloration, Neuro: Negative for headache, weakness, numbness, tingling, and seizure. 18:00 Abdomen/GI: Positive for nausea, diarrhea, Negative for abdominal pain, vomiting. Exam: 18:00 Constitutional: This is a well developed, well nourished patient who is awake, alert, pm1 and in no acute distress. Head/Face: Normocephalic, atraumatic. Eyes: Pupils equal round and reactive to light, extra-ocular motions intact. Lids and lashes normal. Conjunctiva and sclera are non-icteric and not injected. Cornea within normal limits. Periorbital areas with no swelling, redness, or edema. ENT: Nares patent. No nasal discharge, no septal abnormalities noted. Tympanic membranes are normal and external auditory canals are clear. Oropharynx with no redness, swelling, or masses, exudates, or evidence of obstruction, uvula midline. Mucous membranes moist. Neck: Trachea midline, no thyromegaly or masses palpated, and no cervical lymphadenopathy. Supple, full range of motion without nuchal rigidity, or vertebral point tenderness. No Meningismus. Chest/axilla: Normal chest wall appearance and motion. Nontender with no deformity. No lesions are appreciated. Cardiovascular: Regular rate and rhythm with a normal S1 and S2. No gallops, murmurs, or rubs. Normal PMI, no JVD. No pulse deficits. Respiratory: Lungs have equal breath sounds bilaterally, clear to auscultation and percussion. No rales, rhonchi or wheezes noted. No increased work of breathing, no retractions or nasal flaring. Abdomen/GI: Soft, non-tender, with normal bowel sounds. No distension or tympany. No guarding or rebound. No evidence of tenderness throughout. Back: No spinal tenderness. No costovertebral tenderness. Full range of motion. Skin: Warm, dry with normal turgor. Normal color with no rashes, no lesions, and no evidence of cellulitis. MS/ Extremity: Pulses equal, no cyanosis. Neurovascular intact. Full, normal range of motion. 18:00 Neuro: Orientation: is normal, Motor: is normal, moves all fours, Gait: is steady, at a normal pace, without difficulty. Vital Signs: 16:06 BP 132 / 88; Pulse 91; Resp 16; Temp 97.8; Pulse Ox 100% on R/A; Pain 1/10; hb 17:32 BP 112 / 71; Pulse 67; Resp 18; Pulse Ox 100% on R/A; ca1 18:42 BP 115 / 70; Pulse 77; Resp 19; Pulse Ox 100% on R/A; ca1 19:30 BP 121 / 73; Pulse 75; Resp 17; Pulse Ox 100% on R/A; ca1 MDM: 17:40 Patient medically screened. pm1 19:03 Data reviewed: vital signs. Data interpreted: Pulse oximetry: on room air is 100 %. pm1 Interpretation: normal. Counseling: I had a detailed discussion with the patient and/or guardian regarding: the historical points, exam findings, and any diagnostic results supporting the discharge/admit diagnosis, lab results, the need for outpatient follow up, to return to the emergency department if symptoms worsen or persist or if there are any questions or concerns that arise at home. 09/20 17:41 Order name: CBC with Diff; Complete Time: 18:37 pm1 09/20 17:41 Order name: CMP; Complete Time: 18:37 pm1 09/20 17:41 Order name: IV Saline Lock; Complete Time: 17:59 pm1 09/20 17:41 Order name: Labs collected and sent; Complete Time: 17:59 pm1 Administered Medications: 17:56 Drug: NS 0.9% 1000 ml Route: IV; Rate: 1000 ml; Site: right antecubital; ca1 18:50 Follow up: Response: No adverse reaction; IV Status: Completed infusion ca1 Disposition: 09/20/18 19:04 Discharged to Home. Impression: Diarrhea, unspecified, Nausea. - Condition is Stable. - Discharge Instructions: Food Choices to Help Relieve Diarrhea, Adult, Diarrhea, Adult, Nausea, Adult, Viral Gastroenteritis, Adult. - Prescriptions for Zofran 4 mg Oral Tablet - take 1 tablet by ORAL route every 12 hours As needed; 20 tablet. - Medication Reconciliation Form, Thank You Letter, Antibiotic Education, Prescription Opioid Use, Work release form form. - Follow up: Emergency Department; When: As needed; Reason: Worsening of condition. Follow up: Private Physician; When: 2 - 3 days; Reason: Recheck today's complaints, Continuance of care, Re-evaluation by your physician. - Problem is new. - Symptoms have improved. Signatures: Dispatcher [employer] EDMS Tiago Ross, FLIGHT CREW ORDNANCEMAN FLIGHT CREW ORDNANCEMAN pm1 Karen Chau RN RN hb Tereza Huber RN RN ca1 Corrections: (The following items were deleted from the chart) 19:35 19:04 09/20/2018 19:04 Discharged to Home. Impression: Diarrhea, unspecified; Nausea. ca1 Condition is Stable. Forms are Medication Reconciliation Form, Thank You Letter, Antibiotic Education, Prescription Opioid Use. Follow up: Emergency Department; When: As needed; Reason: Worsening of condition. Follow up: Private Physician; When: 2 - 3 days; Reason: Recheck today's complaints, Continuance of care, Re-evaluation by your physician. Problem is new. Symptoms have improved. pm1
[2018-09-20 20:34] VITALS: TEMP 97.8; O2SAT 100
[2018-09-20 20:38] VITALS: BP 121/73
== END 2018-09-20 19:35 | disposition home or self-care (01) ==
LOC: ER 15:54
DX: R19.7 Diarrhea, unspecified (principal); R11.0 Nausea; I10 Essential (primary) hypertension; F32.9 Major depressive disorder, single episode, unspecified; Z79.899 Other long term (current) drug therapy; Z72.0 Tobacco use
CPT/HCPCS: 36415; 80053; 85025; 96360; 99284; J7030

== ENCOUNTER 2018-09-26 22:14 | Emergency (ER) | payer OTHER ==
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
--- NOTE | 2018-09-27 11:42 | RAD REPORT ---
EXAM DESCRIPTION: CT - Head Brain Wo Cont CLINICAL HISTORY: 33 years Female, TRAUMA COMPARISON: None. TECHNIQUE: 5 mm axial images were obtained along with 3 mm reformatted coronal and sagittal images. This exam was performed according to our departmental dose-optimization program, which includes autom ated exposure control, adjustment of the mA and/or kV according to patient size and/or use of iterati ve reconstruction technique. FINDINGS: No acute abnormal extracerebral fluid collections are demonstrated. The cortical sulci, ventricles, and cisterns are within normal limits. There are no areas of altered attenuation identified to suggest acute hemorrhage, infarction, or mass lesion. The visualized portions of the paranasal sinuses and mastoid air cells are remarkable for moderately severe mucosal thickening in the left sphenoid sinus. IMPRESSION: 1. No acute intracranial abnormality. 2. Left sphenoid sinusitis. Electronically signed by Flo Wyatt MD 09/26/2018 10:29 PM EMAIL PRODUCTION SPECIALIST Due to temporary technical issues with the PACS/Fluency reporting system, reports are being signed by the in house radiologist as a courtesy to ensure prompt reporting. The interpreting radiologist is f ully responsible for the content of the report.
--- NOTE | 2018-09-27 11:50 | RAD REPORT ---
EXAM DESCRIPTION: CT - Facial Bones W/ Mpr - 09/26/2018 10:41 pm CLINICAL HISTORY: The patient is 33 years old and is Female; TRAUMA TECHNIQUE: Axial computed tomography images of the face with intravenous contrast. Sagittal and coronal reformat rosalino images were created and reviewed. This CT exam was performed using one or more of the following d ose reduction techniques: automated exposure control, adjustment of the mA and/or kV according to pat ient size and/or less of iterative reconstruction technique. COMPARISON: No relevant prior studies available. FINDINGS: Bones/joints: No acute fracture. Soft tissues: Unremarkable. Orbits: Unremarkable. Sinuses: Chronic bilateral maxillary, ethmoid and left sphenoid sinus thickening noted. No air-fluid levels. Dental: There is apical erosion of a right maxillary molar. IMPRESSION: 1. No fracture. 2. There is apical erosion of a right maxillary molar. 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 The interpreting radiologist is f ully responsible for the content of the report.
== END 2018-09-26 23:39 | disposition home or self-care (01) ==
LOC: ER 22:14
DX: S00.90XA Unspecified superficial injury of unspecified part of head, initial encounter (principal); V49.40XA Driver injured in collision with unspecified motor vehicles in traffic accident, initial encounter; I10 Essential (primary) hypertension; Z72.0 Tobacco use
CPT/HCPCS: 70450; 70486; 76377

== ENCOUNTER 2019-04-12 06:04 | Inpatient (IN) | payer OTHER, SELFPAY ==
[2019-04-12 06:46] LABS: Protime INR 1.19
[2019-04-12 06:49] LABS: Absolute Lymphocytes (CBC) 1.2 K/uL (0.7-4.9); Hematocrit 31.1 % (36.0-45.0); Lymphocytes % 21.4 % (15.3-44.8); MPV 10.2 fL (7.6-11.3); RBC Red Blood Cell Count 4.48 M/uL (3.86-4.86)
[2019-04-12 07:06] LABS: Barbiturates NEGATIVE (NEGATIVE); Benzodiazepines NEGATIVE (NEGATIVE); Cocaine NEGATIVE (NEGATIVE); METHAMPHETAM POSITIVE (NEGATIVE); Methadone NEGATIVE (NEGATIVE); Opiates NEGATIVE (NEGATIVE); Phencyclidine NEGATIVE (NEGATIVE); THC Cannibis NEGATIVE (NEGATIVE)
[2019-04-12 07:29] LABS: ALT/SGPT 16 U/L (12-78); AST/SGOT 10 U/L (15-37); Albumin 3.8 g/dL (3.4-5.0); Alkaline Phosphatase 74 U/L (45-117); BUN Blood Urea Nitrogen 10 mg/dL (7-18); Bicarbonate 23 mmol/L (21-32); Bilirubin Direct 0.1 mg/dL (0-0.2); Bilirubin Total 0.2 mg/dL (0.2-1.0); Glucose Level 99 mg/dL (74-106); NT PRO-BNP 25 pg/mL (<125); Potassium 3.6 mmol/L (3.5-5.1); Protein, Total 6.9 g/dL (6.4-8.2); Sodium Level 141 mmol/L (136-145); Troponin (Emerg Dept Use Only) < 0.02 ng/mL (0.0-0.045)
[2019-04-12 07:34] LABS: Urine Blood 2+ (NEG); Urine Glucose NEGATIVE (NEG); Urine Protein NEGATIVE (NEG); Urine Specific Gravity 1.025 (1.005-1.030); Urine pH 6.5 (5.0-7.0)
--- NOTE | 2019-04-12 07:41 | RAD REPORT ---
EXAM DESCRIPTION: CT - Head Brain Wo Cont - 04/12/2019 7:01 am CLINICAL HISTORY: Right-sided numbness and weakness COMPARISON: September 2018 TECHNIQUE: Computed axial tomography of the head was obtained. IV contrast was not requested. All CT scans are performed using dose optimization technique as appropriate and may include automated exposure control or mA/KV adjustment according to patient size. FINDINGS: An intracranial bleed is not seen . The ventricles are normal in caliber. No extra-axial fluid collection is noted. Cerebellar tonsillar ectopia is present. Fluid within the sinuses/ mastoids is not seen. Mild chronic sphenoid sinusitis IMPRESSION: No acute intracranial abnormality is seen. If patient's symptoms persist MRI of the bra in would be recommended.
--- NOTE | 2019-04-12 08:36 | RAD REPORT ---
EXAM DESCRIPTION: Oren Single View04/12/2019 6:45 am CLINICAL HISTORY: Hypertension and shortness of breath COMPARISON: August 2018 FINDINGS: The lungs appear clear of acute infiltrate. The heart is normal size IMPRESSION: No acute abnormalities displayed
--- NOTE | 2019-04-12 09:06 | RAD REPORT ---
EXAM DESCRIPTION: MRI - Brain Wo Cont - 04/12/2019 8:53 am CLINICAL HISTORY: Slurred speech COMPARISON: Head CT April 12, 2019 TECHNIQUE: Axial, sagittal, and coronal magnetic images of the brain were obtained. Contrast was not requested FINDINGS: A 2 centimeter area of abnormal signal is present within the left periventricular white ma tter extending into the left chaudhry radiata. It has high signal on diffusion weighted sequences and l ow signal on ADC mapping. 1.7 centimeter area of increased signal within the left occipital lobe may represent an old infarctio n. 5 millimeter area of increased signal within the deep white matter of the left parietal lobe may r epresent an old infarction. The ventricles are normal caliber. An extra-axial fluid collection is not present. Mild cerebellar tonsillar ectopia Mild sphenoid chronic sinusitis. Mucous retention cysts within the maxillary sinuses IMPRESSION: 2 centimeter area of abnormal signal within the left periventricular white matter extend ing into the left chaudhry radiata probably an acute infarct. Tiago of the Emergency Room was notifie d 9 a.m. April 12, 2019
[2019-04-12] MEDS ORDERED: ASPIRIN 325 MG TAB ONE (09:23)
--- NOTE | 2019-04-12 09:26 | EDPHYS ---
Physician Documentation [facility] Name: Georgia Viera Age: 33 yrs Sex: Female : 1985 Arrival Date: 04/12/2019 Time: 06:08 Bed 6 Private MD: ED Physician Antoni Meek HPI: 04/12 06:40 This 33 yrs old Female presents to ER via Ambulatory with complaints of pm1 Slurred Speech, Weakness. 06:40 The patient presents to the emergency department with weakness of the right upper pm1 extremity, right lower extremity, a speech or higher order brain function problem, slurred speech. Onset: The symptoms/episode began/occurred midnight. Context: occurred at home. Associated signs and symptoms: Pertinent positives: shortness of breath, anxiety attack. Severity of symptoms: in the emergency department the symptoms are unchanged Pain is currently a 0 / 10. Patient's baseline: Neuro: alert and fully oriented, Motor: no deficits, Ambulation: walks without assistance, Speech: normal. The patient has not experienced similar symptoms in the past. The patient has not recently seen a physician. 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 - Social history:: Smoking status: Patient/guardian denies using tobacco, Patient/guardian denies using alcohol, street drugs. - Ebola Screening: : Patient negative for fever greater than or equal to 101.5 degrees Fahrenheit, and additional compatible Ebola Virus Disease symptoms Patient denies exposure to infectious person Patient denies travel to an Ebola-affected area in the 21 days before illness onset. ROS: 06:40 Constitutional: Negative for fever, chills, and weight loss, Eyes: Negative for injury, pm1 pain, redness, and discharge, ENT: Negative for injury, pain, and discharge, Neck: Negative for injury, pain, and swelling, Cardiovascular: Negative for chest pain, palpitations, and edema, Abdomen/GI: Negative for abdominal pain, nausea, vomiting, diarrhea, and constipation, Back: Negative for injury and pain. 06:40 : Negative for injury, bleeding, discharge, and swelling, MS/Extremity: Negative for injury and deformity, Skin: Negative for injury, rash, and discoloration. 06:40 Respiratory: Positive for shortness of breath, Negative for cough, sputum production, wheezing. 06:40 Neuro: Positive for speech changes, weakness, of the right leg and right arm. Exam: 06:40 Constitutional: This is a well developed, well nourished patient who is awake, alert, pm1 and in no acute distress. Head/Face: Normocephalic, atraumatic. Eyes: Pupils equal round and reactive to light, extra-ocular motions intact. Lids and lashes normal. Conjunctiva and sclera are non-icteric and not injected. Cornea within normal limits. Periorbital areas with no swelling, redness, or edema. ENT: Nares patent. No nasal discharge, no septal abnormalities noted. Tympanic membranes are normal and external auditory canals are clear. Oropharynx with no redness, swelling, or masses, exudates, or evidence of obstruction, uvula midline. Mucous membranes moist. Neck: Trachea midline, no thyromegaly or masses palpated, and no cervical lymphadenopathy. Supple, full range of motion without nuchal rigidity, or vertebral point tenderness. No Meningismus. Chest/axilla: Normal chest wall appearance and motion. Nontender with no deformity. No lesions are appreciated. Cardiovascular: Regular rate and rhythm with a normal S1 and S2. No gallops, murmurs, or rubs. Normal PMI, no JVD. No pulse deficits. Respiratory: Lungs have equal breath sounds bilaterally, clear to auscultation and percussion. No rales, rhonchi or wheezes noted. No increased work of breathing, no retractions or nasal flaring. Abdomen/GI: Soft, non-tender, with normal bowel sounds. No distension or tympany. No guarding or rebound. No evidence of tenderness throughout. Back: No spinal tenderness. No costovertebral tenderness. Full range of motion. Skin: Warm, dry with normal turgor. Normal color with no rashes, no lesions, and no evidence of cellulitis. MS/ Extremity: Pulses equal, no cyanosis. Neurovascular intact. Full, normal range of motion. 06:40 Neuro: Orientation: is normal, Mentation: is normal, Cranial nerves: CN II- XII are normal as tested, Cerebellar function: normal finger to nose testing, Motor: is normal, moves all fours, strength is 5/5 in all extremities, Sensation: is normal, no obvious gross deficits. Vital Signs: 06:15 BP 113 / 87; Pulse 95; Resp 19; Temp 98.1; Pulse Ox 100% ; Weight 83.91 kg; Height 5 rr5 ft. 1 in. (154.94 cm); Pain 0/10; 06:49 BP 115 / 73; Pulse 62; Resp 16; Pulse Ox 99% ; rr5 07:42 BP 110 / 72; Pulse 66; Resp 17; Pulse Ox 99% on R/A; sg 10:45 BP 115 / 70; Pulse 66; Resp 17; Temp 98.1; Pulse Ox 100% on R/A; Pain 0/10; iw 06:15 Body Mass Index 34.96 (83.91 kg, 154.94 cm) rr5 NIH Stroke Scale Scores: 06:23 NIHSS Score: 0 rr5 06:40 NIHSS Score: 0 pm1 Kervin Coma Score: 06:24 Eye Response: spontaneous(4). Verbal Response: oriented(5). Motor Response: obeys rr5 commands(6). Total: 15. MDM: 06:28 Patient medically screened. pm1 09:02 Counseling: I had a detailed discussion with the patient and/or guardian regarding: the pm1 historical points, exam findings, and any diagnostic results supporting the discharge/admit diagnosis, lab results, radiology results, the need for further work-up and treatment in the hospital. 09:21 Data reviewed: vital signs. Data interpreted: Pulse oximetry: on room air is 99 %. pm1 Interpretation: normal. 09:22 Physician consultation: Raj Zamora MD was called at 09:19, was contacted at 09:11, pm1 regarding consult, patient's condition, and will see patient later today. 04/12 06:29 Order name: Basic Metabolic Panel; Complete Time: 07:32 pm1 04/12 06:29 Order name: CBC with Diff; Complete Time: 10:55 pm1 04/12 06:29 Order name: LFT's; Complete Time: 07:32 pm1 04/12 06:29 Order name: Magnesium; Complete Time: 07:32 pm1 04/12 06:29 Order name: NT PRO-BNP; Complete Time: 07:32 pm1 04/12 06:29 Order name: PT-INR; Complete Time: 07:32 pm1 04/12 06:29 Order name: CT Head Brain wo Cont; Complete Time: 07:53 pm1 04/12 06:29 Order name: Troponin (emerg Dept Use Only); Complete Time: 07:32 pm1 04/12 06:29 Order name: UDS; Complete Time: 07:32 pm1 04/12 06:30 Order name: ETOH Level; Complete Time: 07:53 pm1 04/12 06:46 Order name: Urine Dipstick--Ancillary (enter results); Complete Time: 07:35 mw2 04/12 06:46 Order name: Urine --Ancillary (enter results); Complete Time: 07:35 mw2 04/12 09:22 Order name: Glucose, Ancillary Testing EDMS 04/12 09:59 Order name: CBC Smear Scan; Complete Time: 10:55 EDMS 04/12 06:29 Order name: XRAY Chest (1 view); Complete Time: 09:10 pm1 04/12 06:29 Order name: EKG; Complete Time: 06:30 pm1 04/12 06:29 Order name: Cardiac monitoring; Complete Time: 06:30 pm1 04/12 06:29 Order name: EKG - Nurse/Tech; Complete Time: 06:30 pm04/12 06:29 Order name: IV Saline Lock; Complete Time: 06:30 pm04/12 06:29 Order name: Labs collected and sent; Complete Time: 06:30 pm1 04/12 06:29 Order name: O2 Per Protocol; Complete Time: 06:31 pm1 04/12 06:29 Order name: O2 Sat Monitoring; Complete Time: 06:31 pm04/12 06:29 Order name: Urine Dipstick-Ancillary (obtain specimen); Complete Time: 06:38 pm1 04/12 06:29 Order name: Urine Test (obtain specimen); Complete Time: 06:38 pm1 04/12 07:52 Order name: MRI - Brain Wo Cont; Complete Time: 09:10 pm1 Administered Medications: :23 Drug: Aspirin 325 mg Route: PO; sg 10:00 Follow up: Response: No adverse reaction sg Point of Care Testing: Blood Glucose: 06:30 Blood Glucose: 118 mg/dL; rr5 Ranges: Critical Glucose Levels:Adult <50 mg/dl or >400 mg/dl <40 mg/dl or >180 mg/dl Disposition: 04/12/19 09:25 Hospitalization ordered by June Christianson for Inpatient Admission. Preliminary diagnosis is Cerebral infarction. - Bed requested for Telemetry/MedSurg (Inpatient). - Status is Inpatient Admission. iw - Condition is Stable. - Problem is new. - Symptoms have improved. UTI on Admission? No NIH Stroke Scale - NIH Stroke Score Date: 04/12/2019 Time: 06:23 Total Score = 0 1a. Level of Consciousness (LOC) - 0(Alert) 1b. Level of Consciousness (LOC) (Year \T\ Age) - 0(Both) 1c. LOC Commands (Open \T\ Closes Eyes/Product Safety Compliance Leader) - 0(Both) 2. Best Gaze (Lateral Gaze Paresis) - 0(Normal) 3. Visual Field Loss - 0(No visual loss) 4. Facial Palsy - 0(Normal) 5a. Left Arm: Motor (10-second hold) - 0(No drift) 5b. Right Arm: Motor (10-second hold) - 0(No drift) 6a. Left Leg: Motor (5-second hold - always test supine) - 0(No drift) 6b. Right Leg: Motor (5-second hold - always test supine) - 0(No drift) 7. Limb Ataxia (finger/nose \T\ heel/veloz - test with eyes open) - 0(Absent) 8. Sensory Loss (pinprick arms/legs/face) - 0(Normal) 9. Best Language: Aphasia (description/naming/reading) - 0(No aphasia) 10. Dysarthria (speech clarity - read or repeat words) - 0(Normal) 11. Extinction and Inattention (visual/tactile/auditory/spatial/personal) - 0(No abnormality) Initials: rr5 NIH Stroke Scale - NIH Stroke Score Date: 04/12/2019 Time: 06:40 Total Score = 0 1a. Level of Consciousness (LOC) - 0(Alert) 1b. Level of Consciousness (LOC) (Year \T\ Age) - 0(Both) 1c. LOC Commands (Open \T\ Closes Eyes/Product Safety Compliance Leader) - 0(Both) 2. Best Gaze (Lateral Gaze Paresis) - 0(Normal) 3. Visual Field Loss - 0(No visual loss) 4. Facial Palsy - 0(Normal) 5a. Left Arm: Motor (10-second hold) - 0(No drift) 5b. Right Arm: Motor (10-second hold) - 0(No drift) 6a. Left Leg: Motor (5-second hold - always test supine) - 0(No drift) 6b. Right Leg: Motor (5-second hold - always test supine) - 0(No drift) 7. Limb Ataxia (finger/nose \T\ heel/veloz - test with eyes open) - 0(Absent) 8. Sensory Loss (pinprick arms/legs/face) - 0(Normal) 9. Best Language: Aphasia (description/naming/reading) - 0(No aphasia) 10. Dysarthria (speech clarity - read or repeat words) - 0(Normal) 11. Extinction and Inattention (visual/tactile/auditory/spatial/personal) - 0(No abnormality) Initials: pm1 Signatures: Dispatcher [employer] EDMS Pietro Lindsey RN RN sg Williams, Irene, RN RN iw Tiago Ross NP SALES OFFICE ASSISTANT pm1 Honorio Guerrero RN RN ja1 Heath Berry, RN RN rr5 Corrections: (The following items were deleted from the chart) 10:49 09:25 Hospitalization Ordered by June Christianson MD for Inpatient Admission. ja1 Preliminary diagnosis is Cerebral infarction. Bed requested for Telemetry/MedSurg (Inpatient). Status is Inpatient Admission. Condition is Stable. Problem is new. Symptoms have improved. UTI on Admission? No. pm1 11:23 10:49 04/12/2019 09:25 Hospitalization Ordered by June Christianson MD for Inpatient iw Admission. Preliminary diagnosis is Cerebral infarction. Bed requested for Telemetry/MedSurg (Inpatient). Status is Inpatient Admission. Condition is Stable. Problem is new. Symptoms have improved. UTI on Admission? No. ja1
--- NOTE | 2019-04-12 09:26 | ER ---
Nurse's Notes [facility] Name: Georgia Viera Age: 33 yrs Sex: Female : 1985 Arrival Date: 04/12/2019 Time: 06:08 Bed 6 Private MD: Diagnosis: Cerebral infarction Presentation: 04/12 06:15 Presenting complaint: Patient states: I feel I am having slurring of speech right side rr5 weakness and numbness started 12mn today. I took clonipine 10pm and 0600H because of this I am having anxiety attack. 06:15 Transition of care: patient was not received from another setting of care. Onset of rr5 symptoms was April 12, 2019 at 00:00. Risk Assessment: Do you want to hurt yourself or someone else? Patient reports no desire to harm self or others. Initial Sepsis Screen: Does the patient meet any 2 criteria? No. Patient's initial sepsis screen is negative. Does the patient have a suspected source of infection? No. Patient's initial sepsis screen is negative. Care prior to arrival: Medication(s) given: clonipine. 06:15 Method Of Arrival: Ambulatory rr5 06:15 Acuity: MILI 2 rr5 06:15 Note patient complaining of SOB. rr5 TRANSPORTATION PLANNER: 06:15 LMP 04/11/2019 rr5 Historical: - Allergies: 06:22 No Known Allergies; rr5 - Home Meds: 06:22 clonipine [Active]; Alprazolam Oral [Active]; lisinopril Oral [Active]; Wellbutrin Oral rr5 [Active]; Mydayis [Active]; Xanax Oral [Active]; - PMHx: 06:22 ADD/ADHD; Anxiety; Depression; Hypertension; rr5 - Immunization history:: Adult Immunizations up to date. - Social history:: Smoking status: Patient/guardian denies using tobacco, Patient/guardian denies using alcohol, street drugs. - Ebola Screening: : Patient negative for fever greater than or equal to 101.5 degrees Fahrenheit, and additional compatible Ebola Virus Disease symptoms Patient denies exposure to infectious person Patient denies travel to an Ebola-affected area in the 21 days before illness onset. Screenin:23 Abuse screen: Denies threats or abuse. Denies injuries from another. Nutritional rr5 screening: No deficits noted. Tuberculosis screening: No symptoms or risk factors identified. Fall Risk None identified. Total Correa Fall Scale indicates No Risk (0-24 pts). 06:23 VAN Screening: Arm Drift: Patient shows no arm weakness. Patient is VAN negative. rr5 Patient has been NPO before screening. The patient is alert, able to follow commands. The patient does not exhibit slurred or garbled speech The patient is not exhibiting difficulty speaking. The patient does not exhibit difficulty understanding words. The patient is able to swallow own secretions with no drooling or need for suction. Patient tolerated one teaspoon of water. No drooling, immediate coughing, gurgling, or clearing of the throat was noted. The patient tolerated 90mL of water. No drooling, immediate coughing, gurgling, or clearing of the throat was noted. The patient passed the bedside swallow screening. Oral medications may be given as ordered. Contact Physician for further diet orders. Provider notified of bedside swallow screening results: Tiago Ross WRAPPER STEMMER OPERATOR. Assessment: 06:15 General: Appears in no apparent distress. well groomed, Behavior is anxious. Pain: rr5 Denies pain. Neuro: Level of Consciousness is awake, alert, obeys commands, Oriented to person, place, time, situation, Appropriate for age Grounds Maintenance Supervisor are equal bilaterally Moves all extremities. Full function Gait is steady, Speech is normal, Facial symmetry appears normal, Pupils are PERRLA, Reports numbness in right arm and right leg since 0000h weakness in right arm and right leg since 0000h. Cardiovascular: Capillary refill < 3 seconds Patient's skin is warm and dry. Respiratory: Reports shortness of breath Airway is patent Respiratory effort is even, unlabored, Respiratory pattern is regular, symmetrical. GI: No signs and/or symptoms were reported involving the gastrointestinal system. : No signs and/or symptoms were reported regarding the genitourinary system. EENT: No signs and/or symptoms were reported regarding the EENT system. Derm: Skin is intact, Skin temperature is warm. Musculoskeletal: Circulation, motion, and sensation intact. Capillary refill < 3 seconds, Reports weakness in right arm and right leg numbness in right arm and right leg. 07:20 Reassessment: Patient appears in no apparent distress at this time. Patient and/or sg family updated on plan of care and expected duration. Pain level reassessed. Neuro: Level of Consciousness is awake, alert, obeys commands, Oriented to person, place, time, situation, Appropriate for age Grounds Maintenance Supervisor are equal bilaterally Moves all extremities. Full function Gait is steady, Speech is normal, Facial symmetry appears normal, slight droop on the right side of face, but symmetrical with smile. 08:30 Reassessment: Patient appears in no apparent distress at this time. Patient and/or sg family updated on plan of care and expected duration. Pain level reassessed. Patient is alert, oriented x 3, equal unlabored respirations, skin warm/dry/pink. 10:51 Reassessment: Patient appears in no apparent distress at this time. Patient and/or sg family updated on plan of care and expected duration. Pain level reassessed. Patient is alert, oriented x 3, equal unlabored respirations, skin warm/dry/pink. pt updated on room assignment, awaiting a call back from receiving nurse at this time, pt stated understanding, will continue to monitor. Vital Signs: 06:15 BP 113 / 87; Pulse 95; Resp 19; Temp 98.1; Pulse Ox 100% ; Weight 83.91 kg; Height 5 rr5 ft. 1 in. (154.94 cm); Pain 0/10; 06:49 BP 115 / 73; Pulse 62; Resp 16; Pulse Ox 99% ; rr5 07:42 BP 110 / 72; Pulse 66; Resp 17; Pulse Ox 99% on R/A; sg 10:45 BP 115 / 70; Pulse 66; Resp 17; Temp 98.1; Pulse Ox 100% on R/A; Pain 0/10; iw 06:15 Body Mass Index 34.96 (83.91 kg, 154.94 cm) rr5 [place] Coma Score: 06:24 Eye Response: spontaneous(4). Verbal Response: oriented(5). Motor Response: obeys rr5 commands(6). Total: 15. NIH Stroke Scale Scores: 06:23 NIHSS Score: 0 rr5 06:40 NIHSS Score: 0 pm1 ED Course: 06:08 Patient arrived in ED. ag3 06:10 Tiago Ross NP is PHCP. pm1 06:10 Antoni Meek MD is Attending Physician. pm1 06:16 Heath Berry RN is Primary Nurse. rr5 06:20 Triage completed. rr5 06:22 Arm band placed on. EKG completed in triage. Results shown to MD. rr5 06:27 Patient has correct armband on for positive identification. Placed in gown. Bed in low rr5 position. Call light in reach. Side rails up X2. media monitor on. Pulse ox on. NIBP on. 06:30 Inserted saline lock: 20 gauge in right antecubital area, using aseptic technique. rr5 ,using aseptic technique. by regine AGUILAR Blood collected. 06:39 Urine collected: clean catch specimen. rr5 06:43 No provider procedures requiring assistance completed. tl1 06:44 XRAY Chest (1 view) In Process Unspecified. EDMS 07:02 CT Head Brain wo Cont In Process Unspecified. EDMS 07:05 Primary Nurse role handed off by Heath Berry, JEFF sg 07:05 Pietro Lindsey, JEFF is Primary Nurse. sg 08:39 MRI - Brain Wo Cont In Process Unspecified. EDMS 08:41 Patient moved to MRI via wheelchair. lc 08:53 Patient moved back from MRI. 09:25 June Christianson MD is Hospitalizing Provider. pm1 10:53 Patient admitted, IV remains in place. intact, No redness/swelling at site. sg Administered Medications: 09:23 Drug: Aspirin 325 mg Route: PO; sg 10:00 Follow up: Response: No adverse reaction Point of Care Testing: Blood Glucose: 06:30 Blood Glucose: 118 mg/dL; rr5 Ranges: Outcome: 09:25 Decision to Hospitalize by Provider. pm1 11:10 Admitted to [facility] by [facility], via wheelchair, room 413, with chart, Report sg called to JEFF Padilla 11:10 Condition: good 11:10 Instructed on follow up and referral plans. the need for admit, medication usage, safety practices, Demonstrated understanding of instructions. 11:23 Patient left the ED. iw NIH Stroke Scale - NIH Stroke Score Date: 04/12/2019 Time: 06:23 Total Score = 0 1a. Level of Consciousness (LOC) - 0(Alert) 1b. Level of Consciousness (LOC) (Year \T\ Age) - 0(Both) 1c. LOC Commands (Open \T\ Closes Eyes/Supervisory Air Intercept Controller) - 0(Both) 2. Best Gaze (Lateral Gaze Paresis) - 0(Normal) 3. Visual Field Loss - 0(No visual loss) 4. Facial Palsy - 0(Normal) 5a. Left Arm: Motor (10-second hold) - 0(No drift) 5b. Right Arm: Motor (10-second hold) - 0(No drift) 6a. Left Leg: Motor (5-second hold - always test supine) - 0(No drift) 6b. Right Leg: Motor (5-second hold - always test supine) - 0(No drift) 7. Limb Ataxia (finger/nose \T\ heel/veloz - test with eyes open) - 0(Absent) 8. Sensory Loss (pinprick arms/legs/face) - 0(Normal) 9. Best Language: Aphasia (description/naming/reading) - 0(No aphasia) 10. Dysarthria (speech clarity - read or repeat words) - 0(Normal) 11. Extinction and Inattention (visual/tactile/auditory/spatial/personal) - 0(No abnormality) Initials: rr5 NIH Stroke Scale - NIH Stroke Score Date: 04/12/2019 Time: 06:40 Total Score = 0 1a. Level of Consciousness (LOC) - 0(Alert) 1b. Level of Consciousness (LOC) (Year \T\ Age) - 0(Both) 1c. LOC Commands (Open \T\ Closes Eyes/Supervisory Air Intercept Controller) - 0(Both) 2. Best Gaze (Lateral Gaze Paresis) - 0(Normal) 3. Visual Field Loss - 0(No visual loss) 4. Facial Palsy - 0(Normal) 5a. Left Arm: Motor (10-second hold) - 0(No drift) 5b. Right Arm: Motor (10-second hold) - 0(No drift) 6a. Left Leg: Motor (5-second hold - always test supine) - 0(No drift) 6b. Right Leg: Motor (5-second hold - always test supine) - 0(No drift) 7. Limb Ataxia (finger/nose \T\ heel/veloz - test with eyes open) - 0(Absent) 8. Sensory Loss (pinprick arms/legs/face) - 0(Normal) 9. Best Language: Aphasia (description/naming/reading) - 0(No aphasia) 10. Dysarthria (speech clarity - read or repeat words) - 0(Normal) 11. Extinction and Inattention (visual/tactile/auditory/spatial/personal) - 0(No abnormality) Initials: pm1 Signatures: Dispatcher [employer] Pietro Frances, RN RN sg Daniela Morris Irene RN RN iw Regine Johnson, RN RN tl1 Tiago Ross, WRAPPER STEMMER OPERATOR WRAPPER STEMMER OPERATOR pm1 Nayely Cordero ag3 Heath Berry, RN RN rr5
[2019-04-12 09:57] LABS: Anisocytosis 1+; Blood Morphology Comment NOTED (NOT SEEN); Platelet Estimate ADEQ; Urine White Blood Cell Casts OK
[2019-04-12] MEDS: NA CHLORIDE 0.9% 1,000 ML IV SCH (11:34)
[2019-04-12] MEDS ORDERED: ACETAMINOPHEN 500 MG TAB PO PRN (11:34)
[2019-04-12] MEDS ORDERED: ONDANSETRON 4 MG/2 ML VIAL IV PRN (11:34)
--- NOTE | 2019-04-12 11:39 | EKG ---
Test Date: 2019-04-12 Test Time: 06:21:37 Distribution Analyst: JARROD MEASUREMENT RESULTS: Intervals: Rate: 72 MS: 152 QRSD: 80 QT: 376 QTc: 411 [place]: P: 47 MS: 152 QRS: 27 T: 21 INTERPRETIVE STATEMENTS: Normal sinus rhythm with sinus arrhythmia Normal ECG Compared to ECG 09/01/2018 13:39:56 No significant changes Electronically Signed On 04-12-19 11:39:20 CDT by Cristobal Jackson
[2019-04-12 13:05] LABS: Folic Acid, (Folate) 17.2 ng/mL (3.1-17.5)
[2019-04-12] MEDS: clonazePAM 1 MG TAB PO SCH ×2 (13:44→21:24)
--- NOTE | 2019-04-12 14:25 | RAD REPORT ---
EXAM DESCRIPTION: MRI - MRA Head Wo Cont - 04/12/2019 2:15 pm CLINICAL HISTORY: CVA COMPARISON: None. TECHNIQUE: Magnetic resonance angiogram was performed. 3D MIPS reconstruction performed FINDINGS: The anterior cerebral, middle cerebral, posterior cerebral, distal internal carotid and ba silar arteries do not demonstrate a significant stenosis. An aneurysm is not displayed. IMPRESSION: Unremarkable MRA brain.
--- NOTE | 2019-04-12 14:27 | RAD REPORT ---
EXAM DESCRIPTION: MRI - MRA Neck W/Wo Cont - 04/12/2019 2:14 pm CLINICAL HISTORY: CVA COMPARISON: None. TECHNIQUE: Magnetic resonance angiogram of the neck was performed. 18 cc MultiHance was administered intravenously. 3D MIPS reconstruction performed FINDINGS: The common carotid, internal carotid and external carotid arteries do not demonstrate a si gnificant stenosis. An aneurysm is not seen. The vertebral arteries are codominant without visualization of an abnormality. IMPRESSION: Unremarkable MRA neck NASCET criteria used. Mild 0-49% stenosis Moderate 50-69% stenosis Severe 70-99% stenosis
--- NOTE | 2019-04-12 14:33 | RAD REPORT ---
EXAM DESCRIPTION: USCarotid Artery Bilateral04/12/2019 1:12 pm CLINICAL HISTORY: CVA COMPARISON: None FINDINGS: The velocity of the right internal carotid artery equals 117 cm/sec. The right ICA/CCA rat io 1.2 The velocity of the left internal carotid artery equals 126 cm/sec. The left ICA/CCA ratio 0.9 Plaque is not seen within the carotid arteries The vertebral arteries demonstrate antegrade flow IMPRESSION: Unremarkable exam NASCET criteria used. Mild 0-49% stenosis Moderate 50-69% stenosis Severe 70-99% stenosis
[2019-04-12] MEDS ORDERED: POTASSIUM CL SA 10 MEQ TAB PO ONE (16:16)
[2019-04-12] MEDS ORDERED: ENOXAPARIN 40 MG/0.4 ML SQ SCH (17:00)
[2019-04-12 19:48] VITALS: BMI 34.9
[2019-04-12] MEDS: APIXABAN 5 MG TABLET PO SCH (21:24)
[2019-04-12] MEDS: ATORVASTATIN 40 MG TAB PO SCH (21:24)
[2019-04-12 21:46] LABS: RPR (Rapid Plasma Reagin) NON-REACT (NON-REACT)
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
[2019-04-13] MEDS: NA CHLORIDE 0.9% 1,000 ML IV SCH ×2 (01:37→18:07)
[2019-04-13 06:14] LABS: Absolute Lymphocytes (CBC) 1.5 K/uL (0.7-4.9); Hematocrit 30.2 % (36.0-45.0); Lymphocytes % 31.9 % (15.3-44.8); MPV 10.2 fL (7.6-11.3); RBC Red Blood Cell Count 4.31 M/uL (3.86-4.86)
[2019-04-13 06:39] LABS: ALT/SGPT 14 U/L (12-78); AST/SGOT 12 U/L (15-37); Alkaline Phosphatase 62 U/L (45-117); BUN Blood Urea Nitrogen 7 mg/dL (7-18); Bicarbonate 26 mmol/L (21-32); Bilirubin Total 0.2 mg/dL (0.2-1.0); Glucose Level 89 mg/dL (74-106); HDL Cholesterol 34 mg/dL (40-60); LDL Cholesterol, Calculated 65 (<130); Potassium 4.7 mmol/L (3.5-5.1); Protein, Total 5.9 g/dL (6.4-8.2); Sodium Level 143 mmol/L (136-145)
[2019-04-13] MEDS: clonazePAM 1 MG TAB PO SCH (09:00)
[2019-04-13] MEDS: APIXABAN 5 MG TABLET PO SCH ×2 (12:23→21:22)
[2019-04-13] MEDS: ASPIRIN EC 81 MG TAB PO SCH (12:25)
[2019-04-13] MEDS ORDERED: ALPRAZOLAM 0.25 MG TABLET PO PRN (13:05)
--- NOTE | 2019-04-13 13:58 | ECHO ---
HEIGHT: 5 ft 1 in WEIGHT: 185 lb 0 oz DATE OF STUDY: 04/13/[address]: June Christianson MD 2-DIMENSIONAL: YES M.MODE: YES DOPPLER: YES COLOR FLOW: YES TDS: NO PORTABLE: YES DEFINITY: NO BUBBLE STUDY: FRAME 52 DIAGNOSIS: STROKE-SALINE STUDY CARDIAC HISTORY: CATHERIZATION: NO SURGERY: NO PROSTHETIC VALVE: NO PACEMAKER: NO MEASUREMENTS (cm) DIASTOLIC (NORMALS) SYSTOLIC (NORMALS) IVSd 0.9 (0.6-1.2) LA Diam 2.6 (1.9-4.0) LVEF 62% LVIDd 2.8 (3.5-5.7) LVIDs 1.9 (2.0-3.5) %FS 32% LVPWd 0.9 (0.6-1.2) Ao Diam 2.4 (2.0-3.7) 2 DIMENSIONAL ASSESSMENT: RIGHT ATRIUM: NORMAL LEFT ATRIUM: NORMAL RIGHT VENTRICLE: NORMAL LEFT VENTRICLE: NORMAL TRICUSPID VALVE: NORMAL MITRAL VALVE: NORMAL PULMONIC VALVE: NORMAL AORTIC VALVE: NORMAL PERICARDIAL EFFUSION: NONE AORTIC ROOT: NORMAL LEFT VENTRICULAR WALL MOTION: DOPPLER/COLOR FLOW: PHYSIOLOGIC TRICUSPID REGURGITATION. NORMAL RIGHT VENTRICULAR SYSTOLIC PRESSURE. COMMENTS: NORMAL 2D ECHO WITH DOPPLER. TECHNOLOGIST: SABRINA SOSA
--- NOTE | 2019-04-13 15:12 | PN ---
Date of Progress Note: 04/13/2019 Subjective: Patient is seen and examined. Chart reviewed and case discussed with RN. The patient i s doing well. States that her right leg gave out on her and fell in the restroom yesterday. She did let the nurses know. Tree Surgeon, Dr. Ames was notified. Neuro checks were resumed. Patient's treat ment plan explained to the patient. All questions were answered. Physical Examination: Vital Signs: Temperature 97.1, heart rate 56, blood pressure 95/63, respirations 16, O2 at 98% on ro om air. General: Awake, alert, oriented x3. No acute distress, obese female. CV: S1, S2. Regular rate and rhythm. Peripheral pulses present. Respiratory: Moving air well bilaterally. No wheezing or stridor. No use of accessory muscles. Gas trointestinal: Abdomen is soft, nontender, nondistended. Positive bowel sounds. No guarding or rig idity. Extremities: No clubbing, cyanosis, or edema. Neuro: Cranial nerves 2-12 intact grossly, 4+ out of 5 weakness in the right lower extremity, 5/5 bi lateral upper extremities and left lower extremity. Speech is normal. No facial asymmetry. Skin: No rashes. Normal skin turgor. Musculoskeletal: No tenderness to palpation. No bruising. Laboratory Data: Sodium 143, potassium 4.7, chloride 112, CO2 of 26, BUN 7, creatinine 0.63, glucose 89, calcium 7.9. WBC 4.9, H and H 9.3 and 30.2, platelets 235. Imaging studies, carotid artery ultrasound shows unremarkable exam. Neck: MRA shows unremarkable MR A of the neck. Brain MRI with MRA shows unremarkable MRA of the brain. No aneurysm. Echocardiogram is pending. Assessment And Plan: A 33-year-old female with: 1.Acute CVA, left chaudhry radiata. Continue stroke guidelines. Dr. Zamora recommended Eliquis due to patient's etiology of stroke, which is likely embolic. Hypercoagulable workup is underway. [place] tid artery ultrasound, MRA of the brain and neck are negative. Echocardiogram with bubble study is p ending. 2.Obesity, BMI 35. 3.Heart murmur. Echo pending. 4.ADHD, on Mydayis. 5.Generalized anxiety disorder, on Klonopin. 6.Deep venous thrombosis prophylaxis with Lovenox, plan continue PT/OT. 7.Status post fall. We will hold patient's clonazepam. Fall precautions bedside commode. Continue with PT. Disposition: Likely discharge in the next 24 to 48 hours. The patient unfortunately is unfunded, do es not have any insurance, may not be able to go to rehab. We will discuss with social work. The pa jordy will also need to be on chronic anticoagulation. We will try to give her coupon cards for [employer]. MARISSA Voice ID: [id number] Report ID: [id number]
--- NOTE | 2019-04-13 20:03 | CON ---
Reason For Consultation: Consultation was called because of stroke. History Of Present Illness: Ms. 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 She had symptoms initially at night, but did not seek medical attention until the symptoms progressed the next day. She came into [facility] and imaging of the he ad by CT, which was initially negative, but MRI of the brain later showed a 2 cm acute infarct in the left periventricular white matter and extending into the left chaudhry radiata. The study also identi fied chronic strokes, two additional one in the left occipital lobe and left parietal lobe. The curt ent did say she was unaware of any deficits that might have pertaining to the additional 2 strokes. She does have 4 children. Denies any miscarriages. She did come into the hospital and this is on re view of records with vaginal bleeding, but there is no prior workup indicating the patient has a high risk for stroke given her young age. She was not taking aspirin or any anti-platelet medications. In the hospital, her symptoms fluctuated, but since she thinks she is almost back to normal in terms of her speech and a right-sided deficit. Past Medical History: As indicated. Surgical History: Tubal ligation. Allergies: NO KNOWN DRUG ALLERGIES. Medications: She is now taking Eliquis 5 mg twice a day for DVT prophylaxis, aspirin 162 mg daily, L ipitor 40 mg at bedtime. She has permissive hypertension during the acute stroke phase. Family History: She does have maternal uncle with a history of stroke less than 50 years old and the re is hypertension and diabetes as well in her family. Review of Systems: She denies any recent fevers, chills, nausea, vomiting, myalgias, arthralgias, headache, weight castro e, rash, psychiatric complaints, gastrointestinal, genitourinary issues. Physical Examination: Vital Signs: Blood pressure range from 95 to 103 over 59 to 63, pulse of 59, respiratory rate 16, te mperature 97.3, and saturation 100% on room air. Weight 185 pounds, height 5 feet 1 inch, BMI 35. General: Ms. Viera is resting comfortably in bed and she actually stood up and ambulated. HEENT: She is normocephalic, atraumatic. Sclerae anicteric. Oropharynx is pink and moist. Neck: Supple. Chest: Clear. Heart: Regular. Extremities: Shows no clubbing, cyanosis, or edema. Neurologic: She is alert, oriented to person, place, time, and situation. She has no expressive or receptive aphasias. Cranial nerves 2 through 12 do not show any significant deficits despite her str rosi. Her face is symmetric with good excursions on smiling. Sensation intact to light touch tempera ture in V1, V2, V3 bilaterally. Motor examination on the right upper and lower extremity, she has carney btle weakness throughout 5-/5 proximally and distally in the right and the left side 5/5. Sensory ex am is intact in upper and lower extremities bilaterally. Coordination is intact in the upper and low er extremities. However, on gait, she has difficulty with tandem and/or unable to do tandem gait and with ordinary gait tends to do slight drifting to the right. Reflexes are symmetric at 1 to 2+ in u pper and lower extremities. Laboratory Studies: Complete blood count with differential shows mildly low hemoglobin of 9.3, hemat ocrit 30.2, platelets 235. She has a stroke in young workup pending. INR 1.19. The basic metabolic panel shows slightly low calcium of 7.9, total protein slightly low of 5.3, HDL cholesterol low at 3 4, LDL cholesterol is at 65. Vitamin D was very low at 11.9. Her drug screen is positive for amphet amines and alcohol. RPR nonreactive. Assessment: Ms. Viera is a 33-year-old patient who has multiple strokes. Stroke risk factors inclu de using drugs like amphetamine and alcohol, possible history of uncontrolled or untreated hypertensi on. She has a family history of stroke. While she denies using alcohol or drugs, she did have a pos itive drug screen. Her echocardiogram was unremarkable. She; however, did not have a transesophagea l echocardiogram to help rule out a possible [id number] shunt. 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 Plan: 1.She should be placed on aspirin 81 mg daily. May add Plavix to the aspirin 75 mg daily. However, the patient apparently has no insurance at this point and that may be too expensive for her to jose nue. In addition, she should be on high-dose statin and again may be too expensive for her to contin ue. 2.The patient should be strongly counseled against using illegal drugs and alcohol. 3.She was told of the importance of regular exercise, changing her diet, hydrating and rest in reduc ing her risk for additional strokes as she has had at least 2 other strokes. 4.Plan, patient may be discharged home and follow up Dr. Zamora in clinic in 1 month. SHANTEL Voice ID: [id number] Report ID: [id number]
[2019-04-13] MEDS: ATORVASTATIN 40 MG TAB PO SCH (21:22)
[2019-04-14] MEDS: NA CHLORIDE 0.9% 1,000 ML IV SCH (05:37)
[2019-04-14 06:21] LABS: Absolute Lymphocytes (CBC) 1.2 K/uL (0.7-4.9); Basophils % 0.9 % (0-1.3); Hematocrit 31.1 % (36.0-45.0); Lymphocytes % 25.2 % (15.3-44.8); MPV 9.9 fL (7.6-11.3)
[2019-04-14 06:43] LABS: ALT/SGPT 12 U/L (12-78); AST/SGOT 7 U/L (15-37); Albumin 3.1 g/dL (3.4-5.0); Alkaline Phosphatase 65 U/L (45-117); BUN Blood Urea Nitrogen 6 mg/dL (7-18); Bicarbonate 24 mmol/L (21-32); Bilirubin Total 0.3 mg/dL (0.2-1.0); Glucose Level 128 mg/dL (74-106); Potassium 4.2 mmol/L (3.5-5.1); Protein, Total 5.9 g/dL (6.4-8.2); Sodium Level 143 mmol/L (136-145)
[2019-04-14] MEDS: ASPIRIN EC 81 MG TAB PO SCH (08:08)
[2019-04-14] MEDS: APIXABAN 5 MG TABLET PO SCH (08:09)
[2019-04-14 08:15] VITALS: O2SAT 99
[2019-04-14 08:18] VITALS: BP 116/66; TEMP 96.9
--- NOTE | 2019-04-15 03:49 | DS ---
Date of Discharge: 04/14/2019 Consultants: Dr. Zamora with Neurology. Admitting Diagnoses: 1.Acute cerebrovascular accident, left periventricular matter extending to chaudhry radiata. 2.Obesity. Body mass index 35. 3.Attention deficit hyperactivity disorder, on Mydayis. 4.Generalized anxiety disorder. 5.Essential hypertension. Discharge Diagnoses: 1.Acute cerebrovascular accident, left periventricular white matter extending to the chaudhry radiata, with previous strokes in the left parietal and occipital lobe. 2.Obesity. Body mass index 35. 3.Attention deficit hyperactivity disorder. Patient was on Mydayis. 4.Generalized anxiety disorder, on Klonopin. 5.Essential hypertension. Hospital Course: Patient is a 33-year-old female with past medical history of hypertension, ADHD, an d anxiety as well as obesity. Patient states that her hypertension was caused by her anxiety and was being treated with Klonopin. Patient was also taking Mydayis for her ADHD, however, claims that she took her last dose prior to admission and does not have any further pills. Patient comes in with sl urred speech, right arm and leg weakness, however, did not show up until the morning after the sympto ms started. Patient's head CT scan was negative; however, her MRI of the brain was positive for a 2 cm infarct along the left periventricular white matter extending into the left chaudhry radiata. Ela parada was also found to have previous infarctions along the left occipital lobe and left parietal lobe. Patient did not perceive any symptoms from her old strokes, however, from the new stroke, she did whitehead ve slurred speech and right-sided weakness. Patient was started on stroke guidelines with aspirin, s tatin, Lovenox. Dr. Zamora with Neurology was consulted. He recommended Eliquis. Therefore, curt ent was switched over to Eliquis and Lovenox was discontinued. Patient does have history of heart mu rmur as a child, however, did not have any surgeries for it, was seen by a indoor landscape architect. S he does not recall exactly what her diagnosis was. Patient's workup including MRA of the neck and br ain were negative for any aneurysm or other flow abnormalities. Her triglyceride levels were normal, cholesterol levels were also normal. Her carotid artery ultrasound did not show any flow-limiting s tenosis. Patient's echocardiogram with bubble study did not reveal any PFO, however, it is not absol utely conclusive as this is not a transesophageal echocardiogram. Patient had improvement in her wea kness with blood thinners. She was able to ambulate, did have difficulty with tandem gait. Patient unfortunately is unfunded. She does not have insurance. She was able to receive a card for Eliquis for the first month, however, she will need to continue these medications for a prolonged per iod of time and she will need to follow up with Neurology. Patient states that she is able to get he alth insurance through her employer. 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 Patient understands the risks of not being compliant and risk of substance use including amphetamines with worsening strokes and possibly leadi ng to disability, morbidity, and . Patient has young children and is only 33 years old. She un derstands the risks with not treating her stroke aggressively and for further prevention. Patient do es have a [employer] nilda to help alleviate some of the high cost of these medications. She will also be on aspirin and statin. Hypercoagulable workup was also initiated. RPR was negative. She will need to follow up with PCP or Neurology to obtain these results. Patient unfortunately is not able to go to rehab due to lack of funding. Therefore, she was discharged home in a stable condition. She is a ble to ambulate without difficulty. She will be given physical therapy exercises to do at home. Medications: List reviewed. Physical Examination: Vital Signs: Stable. General: Awake, alert, oriented, in no acute distress, obese female. CV: S1, S2. Respiratory: Moving air well bilaterally. Abdomen: Soft, nontender, nondistended. Positive bowel sounds. Extremities: No clubbing, cyanosis, or edema. Neurologic: Nonfocal. Strength is now 5/5 bilateral upper and lower extremities. No facial asymmet ry. Sensation intact to light touch. Speech is normal. Followup: Follow up with primary care physician in 2-3 days. Follow up with neurologist, Dr. Sammi florez, in 2-4 weeks. Follow up with [facility] in 1 week for anxiety. Return to ER for worsening condition. Diet: Heart healthy. Activity: As tolerated. Time Spent: Total time spent discharging patient was 37 minutes. MAIRSSA Voice ID: [id number] Report ID: [id number]
[2019-04-15 12:32] LABS: Prothrombin Gene Analysis Test REPORT
[2019-04-15 13:55] LABS: Protein C Antigen 95 % (70-140)
[2019-04-16 04:31] LABS: Albumin, (SPE) 3.5 g/dL (3.8-4.8); Alpha-1-Globulins 0.3 g/dL (0.2-0.3); Alpha-2-Globulins 0.7 g/dL (0.5-0.9); Gamma Globulins 0.7 g/dL (0.8-1.7); INTERPRETATION REPORT
== END 2019-04-14 11:30 | disposition home or self-care (01) | DRG 65 ==
LOC: ER 06:04 → ERHOLD 10:05 → 4TH 11:03
PROVIDERS: ADMIT Family Medicine; ATTEND Family Medicine
DX: I63.9 Cerebral infarction, unspecified (principal); G81.91 Hemiplegia, unspecified affecting right dominant side; R47.81 Slurred speech; E66.9 Obesity, unspecified; Z68.35 Body mass index [BMI] 35.0-35.9, adult; F90.9 Attention-deficit hyperactivity disorder, unspecified type; F41.1 Generalized anxiety disorder; I10 Essential (primary) hypertension; Z86.73 Personal history of transient ischemic attack (TIA), and cerebral infarction without residual deficits
CPT/HCPCS: 36415; 70450; 70544; 70549; 70551; 71045; 80048; 80053; 80061; 80076; 80307; 80320; 81003; 81025; 81240; 81241; 82306; 82607; 82746; 82962; 83090; 83735; 83880; 84165; 84484; 85025; 85300; 85302; 85305; 85306; 85610; 86021; 86147; 86592; 92610; 93005; 93306; 93880; 94760; 97112; 97116; 97161; 97530; 99285; A9577; J7030

== ENCOUNTER 2019-05-06 21:53 | Emergency (ER) | payer SELFPAY ==
[2019-05-06] MEDS ORDERED: NA CHLORIDE 0.9% 1,000 ML ONE (22:46)
[2019-05-06 22:57] LABS: Absolute Lymphocytes (CBC) 1.9 K/uL (0.7-4.9); Basophils % 0.8 % (0-1.3); Hematocrit 30.2 % (36.0-45.0); MPV 10.2 fL (7.6-11.3); RBC Red Blood Cell Count 4.31 M/uL (3.86-4.86)
[2019-05-06 23:18] LABS: Albumin 3.3 g/dL (3.4-5.0); Bilirubin Total 0.2 mg/dL (0.2-1.0); Potassium 3.6 mmol/L (3.5-5.1); Protein, Total 6.1 g/dL (6.4-8.2)
[2019-05-06 23:39] LABS: Blood Morphology Comment NOTED (NOT SEEN); Hypochromasia 1+; Platelet Estimate ADEQ; Urine White Blood Cell Casts OK
--- NOTE | 2019-05-07 00:38 | ER ---
Nurse's Notes [facility] Name: Georgia Viera Age: 33 yrs Sex: Female : 1985 Arrival Date: 05/06/2019 Time: 21:57 Bed 18 Private MD: Diagnosis: Headache;Urinary tract infection, site not specified Presentation: 05/06 22:12 Presenting complaint: Patient states: she had a stroke last month and for the past aa1 couple days she just hasn't been feeling right. Denies headache but states her head just feels "foggy.". Transition of care: patient was not received from another setting of care. Onset of symptoms was May 03, 2019. Risk Assessment: Do you want to hurt yourself or someone else? Patient reports no desire to harm self or others. Initial Sepsis Screen: Does the patient meet any 2 criteria? No. Patient's initial sepsis screen is negative. Does the patient have a suspected source of infection? No. Patient's initial sepsis screen is negative. Care prior to arrival: None. 22:12 Method Of Arrival: Ambulatory aa1 22:12 Acuity: MILI 3 aa1 Triage Assessment: 22:15 General: Appears in no apparent distress. comfortable, Behavior is calm, cooperative, aa1 appropriate for age. Pain: Denies pain. 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 - Social history:: Smoking status: Patient/guardian denies using tobacco. - Ebola Screening: : No symptoms or risks identified at this time. Screenin:01 Abuse screen: Denies threats or abuse. Denies injuries from another. Nutritional cc3 screening: No deficits noted. Tuberculosis screening: No symptoms or risk factors identified. Fall Risk Ambulatory Aid- None/Bed Rest/Nurse Assist (0 pts). Gait- Normal/Bed Rest/Wheelchair (0 pts) Mental Status- Oriented to own ability (0 pts). Assessment: 22:01 General: Appears in no apparent distress. uncomfortable, Behavior is calm, cooperative, cc3 appropriate for age. Pain: Complains of pain in head Pain currently is 0 out of 10 on a pain scale. Quality of pain is described as aching, Pain began tonight. Neuro: Level of Consciousness is awake, alert, obeys commands, Oriented to person, place, time, situation, Appropriate for age Special Weapons And Tactics Officer are equal bilaterally Moves all extremities. Full function Gait is steady, Speech is normal, Facial symmetry appears normal, Pupils are PERRLA, Intact. Cardiovascular: Denies chest pain, Heart tones S1 S2 present Capillary refill < 3 seconds Patient's skin is warm and dry. Respiratory: Airway is patent Respiratory effort is even, unlabored, Respiratory pattern is regular, symmetrical, Breath sounds are clear bilaterally. GI: Abdomen is round non-distended. : No signs and/or symptoms were reported regarding the genitourinary system. EENT: No signs and/or symptoms were reported regarding the EENT system. Derm: Skin is intact, is healthy with good turgor, Skin is pink, warm \\T\\ dry. normal. Musculoskeletal: Circulation, motion, and sensation intact. Range of motion: intact in all extremities. 23:25 Reassessment: Patient appears in no apparent distress at this time. Patient and/or cc3 family updated on plan of care and expected duration. Pain level reassessed. Patient is alert, oriented x 3, equal unlabored respirations, skin warm/dry/pink. 05/07 00:14 Reassessment: Patient appears in no apparent distress at this time. Patient and/or cc3 family updated on plan of care and expected duration. Pain level reassessed. Patient is alert, oriented x 3, equal unlabored respirations, skin warm/dry/pink. Patient denies pain at this time. 01:20 Reassessment: Patient appears in no apparent distress at this time. Patient and/or cc3 family updated on plan of care and expected duration. Pain level reassessed. Patient is alert, oriented x 3, equal unlabored respirations, skin warm/dry/pink. RANJEET Stevens discharged the patient home with prescription given. IV cannula removed and patient left ER vitally stable and ambulatory. No valuables left in the patient's room. Patient denies pain at this time. Patient states feeling better. Patient states symptoms have improved. Vital Signs: 05/06 22:15 BP 112 / 62; Pulse 75; Resp 16; Temp 99.0; Pulse Ox 100% ; Weight 81.65 kg; Height 5 aa1 ft. 1 in. (154.94 cm); Pain 0/10; 23:18 BP 103 / 67; Pulse 87; Resp 16 S; Pulse Ox 100% on R/A; Pain 0/10; cc3 05/07 00:15 BP 109 / 77; Pulse 85; Resp 16 S; Pulse Ox 100% on R/A; Pain 0/10; cc3 01:12 BP 110 / 68; Pulse 86; Resp 16 S; Pulse Ox 99% on R/A; Pain 0/10; cc3 05/06 22:15 Body Mass Index 34.01 (81.65 kg, 154.94 cm) aa1 ED Course: 05/06 21:57 Patient arrived in ED. cf2 22:01 Brittni Perez is Primary Nurse. cc3 22:01 Patient has correct armband on for positive identification. Placed in gown. Bed in low cc3 position. Call light in reach. Side rails up X 1. Pulse ox on. NIBP on. 22:04 Andres Stevens PA is PHCP. [facility] 22:04 Robi Madera MD is Attending Physician. [facility] 22:13 Triage completed. aa1 22:15 Arm band placed on right wrist. aa1 22:50 Inserted saline lock: 20 gauge in right antecubital area, using aseptic technique. cc3 Blood collected. 23:24 CT Head Brain wo Cont In Process Unspecified. EDMS 05/07 00:37 Raj Zamora MD is Referral Physician. [facility] 01:20 No provider procedures requiring assistance completed. IV discontinued, intact, cc3 bleeding controlled, No redness/swelling at site. Pressure dressing applied. Administered Medications: 05/06 22:50 Drug: NS 0.9% 1000 ml Route: IV; Rate: 1 bolus; Site: right antecubital; cc3 05/07 00:00 Follow up: Response: No adverse reaction; IV Status: Completed infusion; IV Intake: cc3 1000ml Intake: 00:00 IV: 1000ml; Total: 1000ml. cc3 Outcome: 00:38 Discharge ordered by MD. christianson 01:20 Discharged to home ambulatory. cc3 01:20 Condition: stable 01:20 Discharge instructions given to patient, Instructed on discharge instructions, follow up and referral plans. medication usage, Demonstrated understanding of instructions, follow-up care, medications, Prescriptions given X 1. 01:22 Patient left the ED. cc3 Signatures: Dispatcher [employer] EDMS Brooklyn Arnold RN RN aa1 Andres Stevens PA PA jmm Cordel, Charlene cc3 Nasir Cuba cf2 Corrections: (The following items were deleted from the chart) 02:03 05/06 22:01 Pain: Complains of pain in head Pain currently is 4 out of 10 on a pain cc3 scale. Quality of pain is described as aching, Pain began tonight cc3 05/07 02:04 05/06 23:18 BP 103 / 67; Pulse 87bpm; Resp 16bpm; Spontaneous; Pulse Ox 100% RA; cc3 cc3
--- NOTE | 2019-05-07 00:38 | EDPHYS ---
Physician Documentation [facility] Name: Georgia Viera Age: 33 yrs Sex: Female : 1985 Arrival Date: 05/06/2019 Time: 21:57 Bed 18 Private MD: ED Physician Robi Madera HPI: 05/06 22:30 This 33 yrs old Female presents to ER via Ambulatory with complaints of jmm Doesn't Feel Right. 22:30 Onset: The symptoms/episode began/occurred gradually, 1 month(s) ago. Headache History: jmm The patient has had previous headaches. This is a 33 year old female whom recently suffered from a CVA earlier this month. Patient states since the CVA, having a chronic headache along with fatigue. Patient denies unilateral weakness. Denies difficulty with speech. . 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 - Social history:: Smoking status: Patient/guardian denies using tobacco. - Ebola Screening: : No symptoms or risks identified at this time. ROS: 22:30 Cardiovascular: Negative for chest pain, palpitations, and edema, Respiratory: Negative jmm for shortness of breath, cough, wheezing, and pleuritic chest pain, Abdomen/GI: Negative for abdominal pain, nausea, vomiting, diarrhea, and constipation. 22:30 Constitutional: Positive for fatigue. 22:30 Neuro: Positive for headache. 22:30 All other systems are negative. Exam: 22:30 Constitutional: This is a well developed, well nourished patient who is awake, alert, jmm and in no acute distress. Head/Face: atraumatic. Eyes: EOMI, no conjunctival erythema appreciated ENT: Moist Mucus Membranes Neck: Trachea midline, Supple Chest/axilla: Normal chest wall appearance and motion. Cardiovascular: Regular rate and rhythm. No edema appreciated Respiratory: Normal respirations, no respiratory distress appreciated Abdomen/GI: Non distended, soft Back: Normal ROM Skin: General appearance color normal MS/ Extremity: Moves all extremities, no obvious deformities appreciated, no edema noted to the lower extremities 22:30 Neuro: Orientation: is normal, Mentation: is normal, Memory: is normal, Cerebellar function: normal finger to nose testing, Motor: is normal, Sensation: is normal, Gait: is steady. 22:30 Psych: Behavior/mood is pleasant, cooperative. Vital Signs: 22:15 BP 112 / 62; Pulse 75; Resp 16; Temp 99.0; Pulse Ox 100% ; Weight 81.65 kg; Height 5 aa1 ft. 1 in. (154.94 cm); Pain 0/10; 23:18 BP 103 / 67; Pulse 87; Resp 16 S; Pulse Ox 100% on R/A; Pain 0/10; cc3 05/07 00:15 BP 109 / 77; Pulse 85; Resp 16 S; Pulse Ox 100% on R/A; Pain 0/10; cc3 01:12 BP 110 / 68; Pulse 86; Resp 16 S; Pulse Ox 99% on R/A; Pain 0/10; cc3 05/06 22:15 Body Mass Index 34.01 (81.65 kg, 154.94 cm) aa1 MDM: 05/06 22:31 Patient medically screened. [facility] 05/07 00:35 Data reviewed: vital signs, nurses notes. Counseling: I had a detailed discussion with meghan the patient and/or guardian regarding: the historical points, exam findings, and any diagnostic results supporting the discharge/admit diagnosis, lab results, radiology results, the need for outpatient follow up, to return to the emergency department if symptoms worsen or persist or if there are any questions or concerns that arise at home. ED course: Patient has no neuro deficits in the ED. Symptoms appear chronic. I do not suspect an acute process. Patient will follow up with Dr. Zamora for reevaluation. Patient advised to return to the ED if symptoms worsen. . 05/06 22:39 Order name: CBC with Diff; Complete Time: 23:40 [facility] 05/06 22:39 Order name: CMP; Complete Time: 23:27 [facility] 05/06 22:39 Order name: CT Head Brain wo Cont [facility] 05/06 23:40 Order name: CBC Smear Scan; Complete Time: 23:40 EDMS 05/07 00:21 Order name: Urine Dipstick--Ancillary (enter results); Complete Time: 00:43 [facility] 05/07 00:21 Order name: Urine --Ancillary (enter results); Complete Time: 00:43 [facility] 05/06 22:39 Order name: Urine Dipstick-Ancillary (obtain specimen); Complete Time: 00:22 [facility] 05/06 22:39 Order name: Urine Test (obtain specimen); Complete Time: 00:22 [facility] 05/06 22:39 Order name: Saline Lock; Complete Time: 22:52 [facility] Administered Medications: 05/06 22:50 Drug: NS 0.9% 1000 ml Route: IV; Rate: 1 bolus; Site: right antecubital; cc3 05/07 00:00 Follow up: Response: No adverse reaction; IV Status: Completed infusion; IV Intake: cc3 1000ml Disposition: 06:32 Co-signature as Attending Physician, Robi Madera MD Available for consultation at [facility] all times . Disposition: 05/07/19 00:38 Discharged to Home. Impression: Headache, Urinary tract infection, site not specified. - Condition is Stable. - Discharge Instructions: Migraine Headache, Urinary Tract Infection, Adult. - Prescriptions for Macrobid 100 mg Oral Capsule - take 1 capsule by ORAL route every 12 hours for 7 days; 14 capsule. - Medication Reconciliation Form, Thank You Letter, Antibiotic Education, Prescription Opioid Use, Work release form form. - Follow up: Raj Zamora MD; When: 2 - 3 days; Reason: Recheck today's complaints, Continuance of care, Re-evaluation by your physician. Signatures: Dispatcher [employer] [facility] Brooklyn Arnold RN RN aa1 Andres Stevens PA PA Robi Marcus MD MD ps1 Brittni Perez cc3 Corrections: (The following items were deleted from the chart) 01:22 00:38 05/07/2019 00:38 Discharged to Home. Impression: Headache; Urinary tract cc3 infection, site not specified. Condition is Stable. Forms are Medication Reconciliation Form, Thank You Letter, Antibiotic Education, Prescription Opioid Use. Follow up: Raj Zamora; When: 2 - 3 days; Reason: Recheck today's complaints, Continuance of care, Re-evaluation by your physician. meghan
[2019-05-07 00:42] LABS: Urine Blood TRACE (NEG); Urine Glucose NEGATIVE (NEG); Urine Protein NEGATIVE (NEG); Urine Specific Gravity 1.015 (1.005-1.030)
[2019-05-07 02:00] VITALS: BP 112/62; TEMP 99; O2SAT 100
--- NOTE | 2019-05-08 17:08 | RAD REPORT ---
EXAM DESCRIPTION: Head Brain Wo Cont CLINICAL HISTORY: HEADACHE TECHNIQUE: Contiguous axial CT images obtained through the brain without IV contrast. Coronal and sa gittal reformatted images were provided. This exam was performed according to our departmental dose-optimization program, which includes autom ated exposure control, adjustment of the mA and/or kV according to patient size and/or use of iterati ve reconstruction technique. COMPARISON: Head CT dated 04/12/2019. Correlation is made with report only from brain MR dated 9. FINDINGS: Brain: Evolving left chaudhry radiata/centrum semiovale infarct measuring approximately 2 cm , similar in overall size when correlated with the prior MRI report. Low-lying cerebellar tonsils aga in demonstrated. Nichole-white matter differentiation is within normal limits. No hemorrhage. Ventricles: No ventriculomegaly or midline shift. Extra-axial spaces: No extra-axial collection or hemorrhage. Paranasal sinuses and mastoid air cells: Mild to moderate left sphenoid sinus mucosal thickening. Vessels: Unremarkable Bones: Unremarkable Soft tissues: Unremarkable IMPRESSION: 1. Evolving left chaudhry radiata/centrum semiovale infarct. No acute hemorrhage. 2. Low-lying cerebellar tonsils again demonstrated which can be seen in Chiari I malformation. Electronically signed by: Elliot Pringle MD 05/06/2019 11:37 PM CDT Due to temporary technical issues with the PACS/Fluency reporting system, reports are being signed by the in house radiologist as a courtesy to ensure prompt reporting. The interpreting radiologist is f ully responsible for the content of the report.
== END 2019-05-07 01:22 | disposition home or self-care (01) ==
LOC: ER 21:53
DX: N39.0 Urinary tract infection, site not specified (principal)
CPT/HCPCS: 36415; 70450; 80053; 81003; 81025; 85025; 96360; 99284; J7030

== ENCOUNTER 2019-12-14 08:01 | Observation (INO) | payer SELFPAY ==
[2019-12-14 08:42] LABS: Absolute Lymphocytes (CBC) 1.1 K/uL (0.7-4.9); Basophils % 0.8 % (0-1.3); Hematocrit 36.1 % (36.0-45.0); Lymphocytes % 19.4 % (15.3-44.8); MPV 9.7 fL (7.6-11.3); RBC Red Blood Cell Count 4.52 M/uL (3.86-4.86)
[2019-12-14 08:44] LABS: Protime INR 1.12
[2019-12-14] MEDS ORDERED: NA CHLORIDE 0.9% 1,000 ML ONE (08:51)
[2019-12-14] MEDS ORDERED: FOLIC ACID 5 MG/ML VIAL ONE (08:51)
[2019-12-14 08:53] LABS: ALT/SGPT 17 U/L (12-78); AST/SGOT 10 U/L (15-37); Albumin 3.2 g/dL (3.4-5.0); Alkaline Phosphatase 66 U/L (45-117); BUN Blood Urea Nitrogen 9 mg/dL (7-18); Bicarbonate 24 mmol/L (21-32); Bilirubin Direct < 0.1 mg/dL (0-0.2); Bilirubin Total 0.2 mg/dL (0.2-1.0); Glucose Level 106 mg/dL (74-106); NT PRO-BNP 82 pg/mL (<125); Potassium 3.9 mmol/L (3.5-5.1); Protein, Total 6.4 g/dL (6.4-8.2); Sodium Level 142 mmol/L (136-145); Troponin (Emerg Dept Use Only) < 0.02 ng/mL (0.0-0.045)
[2019-12-14 08:56] LABS: C-Reactive Protein < 2.90 mg/L (<3.00)
[2019-12-14] MEDS ORDERED: CEFTRIAXONE/SWI 1gm 1 GM/10 ML SYR ONE (08:59)
--- NOTE | 2019-12-14 09:01 | RAD REPORT ---
EXAM DESCRIPTION: CT - Head Brain Wo Cont - 12/14/2019 8:41 am CLINICAL HISTORY: TIA;Numbness COMPARISON: Head Brain Wo Cont dated 05/06/2019; Head Brain Wo Cont dated 04/12/2019 TECHNIQUE: All CT scans are performed using dose optimization technique as appropriate and may inclu de automated exposure control or mA/KV adjustment according to patient size. FINDINGS: No intracranial hemorrhage, hydrocephalus or extra-axial fluid collection.15 mm area of gl iosis is seen left centrum semiovale, likely related to old infarction.No midline shift is seen. The paranasal sinuses and mastoids are clear. The calvarium is intact. IMPRESSION: No acute intracranial abnormality.
--- NOTE | 2019-12-14 09:01 | RAD REPORT ---
EXAM DESCRIPTION: RAD - Chest Single View - 12/14/2019 8:49 am CLINICAL HISTORY: COUGH Chest pain. COMPARISON: Chest Single View dated 04/12/2019; Chest Single View dated 09/01/2018 FINDINGS: Portable technique limits examination quality. The lungs are grossly clear. The heart is normal in size. No displaced fractures. IMPRESSION: No acute intrathoracic process suspected.
--- NOTE | 2019-12-14 09:18 | ER ---
Nurse's Notes [facility] Name: Georgia Viera Age: 34 yrs Sex: Female : 1985 Arrival Date: 12/14/2019 Time: 08:04 Bed 4 Private MD: Germain Bermeo T Diagnosis: Chest pain, unspecified;Urinary tract infection, site not specified;Transient cerebral ischemic attack, unspecified-right leg numbness Presentation: 12/13 08:13 Chief complaint: Patient states: RLE NUMBNESS AND INTERMITTENT SUBSTERNAL CP SINCE bp YESTERDAY AM. Coronavirus screen: Proceed with normal triage. Ebola Screen: No symptoms or risks identified at this time. Initial Sepsis Screen: Does the patient meet any 2 criteria? No. Patient's initial sepsis screen is negative. Does the patient have a suspected source of infection? No. Patient's initial sepsis screen is negative. Risk Assessment: Do you want to hurt yourself or someone else? Patient reports no desire to harm self or others. Onset of symptoms is unknown. 08:13 Method Of Arrival: Ambulatory bp 08:13 Acuity: MILI 3 bp Triage Assessment: 08:17 General: Appears in no apparent distress. comfortable, Behavior is cooperative, bp appropriate for age, anxious. Pain: Complains of pain in chest. EENT: No deficits noted. 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 Cardiovascular: Rhythm is sinus rhythm. Respiratory: No deficits noted. GI: No signs and/or symptoms were reported involving the gastrointestinal system. : No signs and/or symptoms were reported regarding the genitourinary system. Derm: No deficits noted. Musculoskeletal: No deficits noted. 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 - Social history:: Smoking status: Patient denies any tobacco usage or history of. - Family history:: not pertinent. Screenin:19 Abuse screen: Denies threats or abuse. Denies injuries from another. Nutritional bp screening: No deficits noted. Tuberculosis screening: No symptoms or risk factors identified. VAN Screening: Arm Drift: Patient shows no arm weakness. Patient is VAN negative. Fall Risk No fall in past 12 months (0 pts). Secondary diagnosis (15 points) CVA, No IV (0 pts). Ambulatory Aid- None/Bed Rest/Nurse Assist (0 pts). Gait- Normal/Bed Rest/Wheelchair (0 pts) Mental Status- Oriented to own ability (0 pts). Total Correa Fall Scale indicates No Risk (0-24 pts). Assessment: 08:19 General: SEE TRIAGE NOTE. Pain: Pain does not radiate. Pain began 1 day ago. bp 08:49 Reassessment: PT RETURNED FROM CT. ALL CURRENT ORDERS IN PROCESS, RESULTS PENDING. NO bp CHANGE IN PT NEURO STATUS. 09:45 Reassessment: ADMIT PROVIDER AT B/S. NO CHANGE IN NEURO STATUS. bp 10:48 Reassessment: ADMIT IN PROCESS. Neuro: Level of Consciousness is awake, alert, obeys bp commands, Watch Case Polisher are weak on right Facial symmetry appears normal. 11:30 Reassessment: Patient appears in no apparent distress at this time. Patient is alert, ca1 oriented x 3, equal unlabored respirations, skin warm/dry/pink. 12:30 Reassessment: Patient appears in no apparent distress at this time. Patient is alert, ca1 oriented x 3, equal unlabored respirations, skin warm/dry/pink. Vital Signs: 08:13 BP 127 / 82; Pulse 69; Resp 17; Temp 98.8; Pulse Ox 99% ; Weight 86.18 kg; Height 5 ft. bp 1 in. (154.94 cm); 08:49 BP 107 / 69; Pulse 68; Resp 11; Pulse Ox 99% ; bp 09:45 BP 85 / 50; Pulse 61; Resp 18; Pulse Ox 100% ; bp 10:47 BP 102 / 64; Pulse 56; Resp 16; Pulse Ox 100% ; bp 11:45 BP 102 / 73; Pulse 53; Resp 16 S; Pulse Ox 100% on R/A; ca1 12:30 BP 103 / 61; Pulse 61; Resp 15 S; Pulse Ox 100% on R/A; ca1 08:13 Body Mass Index 35.90 (86.18 kg, 154.94 cm) bp NIH Stroke Scale Scores: 08:19 NIHSS Score: 2 bp 08:26 NIHSS Score: 1 jarocho ED Course: 08:04 Patient arrived in ED. mr 08:05 Casey Rodriguez MD is Attending Physician. jarocho 08:05 Germain Bermeo MD is Private Physician. mr 08:05 Rusty Maya, JEFF is Primary Nurse. bp 08:14 Triage completed. bp 08:17 Arm band placed on. bp 08:19 Patient has correct armband on for positive identification. Placed in gown. Bed in low bp position. Call light in reach. Side rails up X2. reed press feeder on. Pulse ox on. NIBP on. 08:19 Patient maintains SpO2 saturation greater than 95% on room air. bp 08:25 Initial lab(s) drawn, by me, sent to lab. Inserted saline lock: 20 gauge in right aa5 antecubital area, using aseptic technique. Blood collected. 08:41 CT Head Brain wo Cont In Process Unspecified. EDMS 08:50 XRAY Chest (1 view) In Process Unspecified. EDMS 09:15 Ruddy Rodriguez DO is Hospitalizing Provider. jarocho 12:47 No provider procedures requiring assistance completed. Patient admitted, IV remains in ca1 place. Administered Medications: 08:45 Drug: foLIC Acid 1 mg Route: IVPB; Site: right antecubital; bp 09:15 Follow up: IV Status: Completed infusion bp 08:45 Drug: NS 0.9% 1000 ml Route: IV; Rate: 1 bolus; Site: right antecubital; bp 10:49 Follow up: IV Status: Completed infusion; IV Intake: 1000ml bp 08:54 Drug: Rocephin 1 grams Route: IV; Rate: per protocol; Site: right antecubital; bp 09:15 Follow up: IV Status: Completed infusion bp 09:15 Drug: Aspirin 162 mg Route: PO; bp 10:49 Follow up: Response: No adverse reaction bp 09:15 Drug: PlaVIX 75 mg Route: PO; bp 10:49 Follow up: Response: No adverse reaction bp Point of Care Testing: Blood Glucose: 08:27 Blood Glucose: 97 mg/dL; bp Ranges: Intake: 10:49 IV: 1000ml; Total: 1000ml. bp Outcome: 09:17 Decision to Hospitalize by Provider. jarocho 12:48 Admitted to Med/surg accompanied by tech, via wheelchair, room 228, with chart. ca1 12:48 Condition: stable 12:48 Instructed on the need for admit. 12:49 Patient left the ED. ca1 NIH Stroke Scale - NIH Stroke Score Date: 12/14/2019 Time: 08:19 Total Score = 2 1a. Level of Consciousness (LOC) - 0(Alert) 1b. Level of Consciousness (LOC) (Year \T\ Age) - 0(Both) 1c. LOC Commands (Open \T\ Closes Eyes/Bobbin Coil Winder) - 0(Both) 2. Best Gaze (Lateral Gaze Paresis) - 0(Normal) 3. Visual Field Loss - 0(No visual loss) 4. Facial Palsy - 0(Normal) 5a. Left Arm: Motor (10-second hold) - 0(No drift) 5b. Right Arm: Motor (10-second hold) - 0(No drift) 6a. Left Leg: Motor (5-second hold - always test supine) - 0(No drift) 6b. Right Leg: Motor (5-second hold - always test supine) - 1(Drift) 7. Limb Ataxia (finger/nose \T\ heel/veloz - test with eyes open) - 0(Absent) 8. Sensory Loss (pinprick arms/legs/face) - 1(Mild to moderate loss) 9. Best Language: Aphasia (description/naming/reading) - 0(No aphasia) 10. Dysarthria (speech clarity - read or repeat words) - 0(Normal) 11. Extinction and Inattention (visual/tactile/auditory/spatial/personal) - 0(No abnormality) Initials: bp NIH Stroke Scale - NIH Stroke Score Date: 12/14/2019 Time: 08:26 Total Score = 1 1a. Level of Consciousness (LOC) - 0(Alert) 1b. Level of Consciousness (LOC) (Year \T\ Age) - 0(Both) 1c. LOC Commands (Open \T\ Closes Eyes/Bobbin Coil Winder) - 0(Both) 2. Best Gaze (Lateral Gaze Paresis) - 0(Normal) 3. Visual Field Loss - 0(No visual loss) 4. Facial Palsy - 0(Normal) 5a. Left Arm: Motor (10-second hold) - 0(No drift) 5b. Right Arm: Motor (10-second hold) - 0(No drift) 6a. Left Leg: Motor (5-second hold - always test supine) - 0(No drift) 6b. Right Leg: Motor (5-second hold - always test supine) - 0(No drift) 7. Limb Ataxia (finger/nose \T\ heel/veloz - test with eyes open) - 0(Absent) 8. Sensory Loss (pinprick arms/legs/face) - 1(Mild to moderate loss) 9. Best Language: Aphasia (description/naming/reading) - 0(No aphasia) 10. Dysarthria (speech clarity - read or repeat words) - 0(Normal) 11. Extinction and Inattention (visual/tactile/auditory/spatial/personal) - 0(No abnormality) Initials: jarocho Signatures: Dispatcher [employer] EDCasey Johnson MD MD cha Rivera, Miracle FabNeha, RN RN aa5 Rusty Maya, JEFF RN bp AcTereza gilbert, RN RN ca1 Corrections: (The following items were deleted from the chart) 08:21 08:13 BP 127 / 82; Pulse 69bpm; Resp 17bpm; Pulse Ox 99%; Temp 98F; 86.18 kg; bp Height 5 ft. 1 in.; BMI: 35.9; bp
--- NOTE | 2019-12-14 09:19 | EDPHYS ---
Physician Documentation [facility] Name: Georgia Viera Age: 34 yrs Sex: Female : 1985 Arrival Date: 12/14/2019 Time: 08:04 Bed 4 Private MD: Germain Bermeo T ED Physician Casey Rodriguez HPI: 12/13 08:25 This 34 yrs old Female presents to ER via Ambulatory with complaints of Chest jarocho Pain, Leg Numbness. 08:25 The patient or guardian reports chest pain that is located primarily in the substernal jarocho area. The pain does not radiate. Associated signs and symptoms:. 08:26 The patient's problem is reported as paresthesias, in right lower extremity. Onset: The jarocho symptoms/episode began/occurred yesterday. Duration: The episode is continuous. Context: the episode(s) was witnessed, by no one, symptoms became apparent on December 13, 2019. The symptoms are alleviated by nothing. The symptoms are aggravated by nothing. Associated signs and symptoms: The patient has no apparent associated signs or symptoms. The chest pain is described as a pressure. SPECIAL EFFECTS ARTIST: 08:17 LMP 11/27/2019 bp Historical: - Allergies: 08:17 No Known Allergies; bp - Home Meds: 08:17 Klonopin Oral [Active]; Prozac Oral [Active]; Adderall XR Oral [Active]; cetirizine bp oral oral [Active]; - PMHx: 08:17 ADD/ADHD; Anxiety; CVA; Depression; Hypertension; bp - PSHx: 08:17 Tubal ligation; bp - Immunization history:: Adult Immunizations up to date. - Social history:: Smoking status: Patient denies any tobacco usage or history of. - Family history:: not pertinent. ROS: 08:26 Constitutional: Negative for fever, chills, and weight loss, Eyes: Negative for injury, jarocho pain, redness, and discharge, ENT: Negative for injury, pain, and discharge, Neck: Negative for injury, pain, and swelling, Respiratory: Negative for shortness of breath, cough, wheezing, and pleuritic chest pain, Abdomen/GI: Negative for abdominal pain, nausea, vomiting, diarrhea, and constipation, Back: Negative for injury and pain, : Negative for injury, bleeding, discharge, and swelling, MS/Extremity: Negative for injury and deformity, Skin: Negative for injury, rash, and discoloration, Psych: Negative for depression, anxiety, suicide ideation, homicidal ideation, and hallucinations, Allergy/Immunology: Negative for hives, rash, and allergies, Endocrine: Negative for neck swelling, polydipsia, polyuria, polyphagia, and marked weight changes, Hematologic/Lymphatic: Negative for swollen nodes, abnormal bleeding, and unusual bruising. 08:26 Cardiovascular: Positive for chest pain, of the chest. 08:26 Neuro: Positive for numbness, of the right leg. Exam: 08:26 Radiologist reports: neg jarocho 08:26 Constitutional: This is a well developed, well nourished patient who is awake, alert, and in no acute distress. Head/Face: Normocephalic, atraumatic. Eyes: Pupils equal round and reactive to light, extra-ocular motions intact. Lids and lashes normal. Conjunctiva and sclera are non-icteric and not injected. Cornea within normal limits. Periorbital areas with no swelling, redness, or edema. ENT: Nares patent. No nasal discharge, no septal abnormalities noted. Tympanic membranes are normal and external auditory canals are clear. Oropharynx with no redness, swelling, or masses, exudates, or evidence of obstruction, uvula midline. Mucous membranes moist. Neck: Trachea midline, no thyromegaly or masses palpated, and no cervical lymphadenopathy. Supple, full range of motion without nuchal rigidity, or vertebral point tenderness. No Meningismus. Chest/axilla: Normal chest wall appearance and motion. Nontender with no deformity. No lesions are appreciated. Cardiovascular: Regular rate and rhythm with a normal S1 and S2. No gallops, murmurs, or rubs. Normal PMI, no JVD. No pulse deficits. Respiratory: Lungs have equal breath sounds bilaterally, clear to auscultation and percussion. No rales, rhonchi or wheezes noted. No increased work of breathing, no retractions or nasal flaring. Abdomen/GI: Soft, non-tender, with normal bowel sounds. No distension or tympany. No guarding or rebound. No evidence of tenderness throughout. Back: No spinal tenderness. No costovertebral tenderness. Full range of motion. Skin: Warm, dry with normal turgor. Normal color with no rashes, no lesions, and no evidence of cellulitis. MS/ Extremity: Pulses equal, no cyanosis. Neurovascular intact. Full, normal range of motion. Neuro: Awake and alert, GCS 15, oriented to person, place, time, and situation. Cranial nerves II-XII grossly intact. Motor strength 5/5 in all extremities. Sensory grossly intact. Cerebellar exam normal. Normal gait. Psych: Awake, alert, with orientation to person, place and time. Behavior, mood, and affect are within normal limits. 08:40 ECG was reviewed by the Attending Physician. [facility] Vital Signs: 08:13 BP 127 / 82; Pulse 69; Resp 17; Temp 98.8; Pulse Ox 99% ; Weight 86.18 kg; Height 5 ft. bp 1 in. (154.94 cm); 08:49 BP 107 / 69; Pulse 68; Resp 11; Pulse Ox 99% ; bp 09:45 BP 85 / 50; Pulse 61; Resp 18; Pulse Ox 100% ; bp 10:47 BP 102 / 64; Pulse 56; Resp 16; Pulse Ox 100% ; bp 11:45 BP 102 / 73; Pulse 53; Resp 16 S; Pulse Ox 100% on R/A; ca1 12:30 BP 103 / 61; Pulse 61; Resp 15 S; Pulse Ox 100% on R/A; ca1 08:13 Body Mass Index 35.90 (86.18 kg, 154.94 cm) bp NIH Stroke Scale Scores: 08:19 NIHSS Score: 2 bp 08:26 NIHSS Score: 1 jarocho MDM: 08:[address] [facility] 08:28 Data reviewed: vital signs, nurses notes, lab test result(s), EKG, radiologic studies, [facility] CT scan, plain films. 08:34 Differential diagnosis: anxiety, coronary artery disease chest wall pain, CVA, TIA, jarocho stable angina, unstable angina. HEART Score: History: Slightly Suspicious (0), ECG: Normal (0), Age: < or = 45 years (0), Risk Factors: 1 or 2 risk factors (1), [Hypertension] Troponin: < or = 1 x Normal Limit (0), Total Score = 0. The patient's deep vein thrombosis risk score was calculated as follows: Total Score: 0. This patient was found to be at low risk for a deep vein thrombosis by using the Well's assessment criteria. The patient's pulmonary embolism risk score was calculated as follows: Total Score: 0-2 points. This patient was found to be at low risk for a pulmonary embolism by using the Well's assessment criteria. NAM Risk Score: 1 - ASA use in past 7 days, TOTAL SCORE = 1. Data interpreted: surveillance system monitor: rate is 69 beats/min, Pulse oximetry: on room air is 99 %. 08:37 Counseling: I had a detailed discussion with the patient and/or guardian regarding: the [facility] historical points, exam findings, and any diagnostic results supporting the discharge/admit diagnosis, the presence of at least one elevated blood pressure reading (>120/80) during this emergency department visit, lab results, radiology results. 08:37 ED course: stroke 1 year ago, right sided weakness, a deficits resolved, not a tpa jarocho candidate, symptoms began yesterday, not resoved or progressive. 09:08 Physician consultation: Raj Zamora MD was called at 09:14, regarding consult, and jarocho will see patient in the hospital. 09:08 ED course: dr betzy holly admitted and will consult. [facility] 09:17 ED course: dr lynn team admitting, dw with paulo goncalves. [facility] 12/13 08:25 Order name: Basic Metabolic Panel; Complete Time: 09: jarocho 12/13 08:25 Order name: CBC with Diff; Complete Time: 09:59 jarocho 12/13 08:25 Order name: LFT's; Complete Time: 09: jarocho 12/13 08:25 Order name: Magnesium; Complete Time: 09: jarocho 12/13 08:25 Order name: NT PRO-BNP; Complete Time: 09: jarocho 12/13 08:25 Order name: PT-INR; Complete Time: 09: jarocho 12/13 08:25 Order name: Troponin (emerg Dept Use Only); Complete Time: 09: jarocho 12/13 08:25 Order name: XRAY Chest (1 view); Complete Time: 09: jarocho 12/13 08:25 Order name: Sed Rate; Complete Time: 09:59 jarocho 12/13 08:25 Order name: CRP; Complete Time: 09: jarocho 12/13 08:37 Order name: Glucose, Ancillary Testing; Complete Time: 09:06 EDMS 12/13 08:45 Order name: Urine Culture [facility] 12/13 08:45 Order name: Urine Dipstick--Ancillary (enter results); Complete Time: 09:59 eb 12/13 08:45 Order name: Urine --Ancillary (enter results) 12/13 08:25 Order name: EKG; Complete Time: 08:26 [facility] 12/13 08:25 Order name: Cardiac monitoring; Complete Time: 08:27 [facility] 12/13 08:25 Order name: EKG - Nurse/Tech; Complete Time: 08:27 [facility] 12/13 08:25 Order name: IV Saline Lock; Complete Time: 08:27 [facility] 12/13 08:25 Order name: Labs collected and sent; Complete Time: 08:27 [facility] 12/13 08:25 Order name: O2 Per Protocol; Complete Time: 08:27 [facility] 12/13 08:25 Order name: O2 Sat Monitoring; Complete Time: 08:27 [facility] 12/13 08:25 Order name: Urine Dipstick-Ancillary (obtain specimen); Complete Time: 08:49 [facility] 12/13 08:25 Order name: Urine Test (obtain specimen); Complete Time: 08:49 [facility] 12/13 08:25 Order name: CT Head Brain wo Cont; Complete Time: 09:06 [facility] 12/13 11:21 Order name: US; Complete Time: 12:10 EDMS EC:40 Rate is 73 beats/min. Rhythm is regular. QRS [place] is Normal. HI interval is normal. QRS jarocho interval is normal. QT interval is normal. No Q waves. T waves are Normal. No ST changes noted. Clinical impression: Normal ECG. Interpreted by me. Reviewed by me. Administered Medications: 08:45 Drug: foLIC Acid 1 mg Route: IVPB; Site: right antecubital; bp 09:15 Follow up: IV Status: Completed infusion bp 08:45 Drug: NS 0.9% 1000 ml Route: IV; Rate: 1 bolus; Site: right antecubital; bp 10:49 Follow up: IV Status: Completed infusion; IV Intake: 1000ml bp 08:54 Drug: Rocephin 1 grams Route: IV; Rate: per protocol; Site: right antecubital; bp 09:15 Follow up: IV Status: Completed infusion bp 09:15 Drug: Aspirin 162 mg Route: PO; bp 10:49 Follow up: Response: No adverse reaction bp 09:15 Drug: PlaVIX 75 mg Route: PO; bp 10:49 Follow up: Response: No adverse reaction bp Point of Care Testing: Blood Glucose: 08:27 Blood Glucose: 97 mg/dL; bp Ranges: Critical Glucose Levels:Adult <50 mg/dl or >400 mg/dl <40 mg/dl or >180 mg/dl Disposition: 08:[address] [facility] Disposition: 12/14/19 09:17 Hospitalization ordered by Ruddy Lynn for Observation. Preliminary diagnosis are Chest pain, unspecified, Urinary tract infection, site not specified, Transient cerebral ischemic attack, unspecified - right leg numbness. - Bed requested for Telemetry/MedSurg (observation). - Status is Observation. ca1 - Condition is Fair. - Problem is new. - Symptoms have improved. Critical care time excluding procedures: :34 Critical care time: Bedside Care: 25 minutes. Total time: 25 minutes jarocho NIH Stroke Scale - NIH Stroke Score Date: 12/14/2019 Time: 08:19 Total Score = 2 1a. Level of Consciousness (LOC) - 0(Alert) 1b. Level of Consciousness (LOC) (Year \T\ Age) - 0(Both) 1c. LOC Commands (Open \T\ Closes Eyes/Aircraft Delivery Checker) - 0(Both) 2. Best Gaze (Lateral Gaze Paresis) - 0(Normal) 3. Visual Field Loss - 0(No visual loss) 4. Facial Palsy - 0(Normal) 5a. Left Arm: Motor (10-second hold) - 0(No drift) 5b. Right Arm: Motor (10-second hold) - 0(No drift) 6a. Left Leg: Motor (5-second hold - always test supine) - 0(No drift) 6b. Right Leg: Motor (5-second hold - always test supine) - 1(Drift) 7. Limb Ataxia (finger/nose \T\ heel/veloz - test with eyes open) - 0(Absent) 8. Sensory Loss (pinprick arms/legs/face) - 1(Mild to moderate loss) 9. Best Language: Aphasia (description/naming/reading) - 0(No aphasia) 10. Dysarthria (speech clarity - read or repeat words) - 0(Normal) 11. Extinction and Inattention (visual/tactile/auditory/spatial/personal) - 0(No abnormality) Initials: bp NIH Stroke Scale - NIH Stroke Score Date: 12/14/2019 Time: 08:26 Total Score = 1 1a. Level of Consciousness (LOC) - 0(Alert) 1b. Level of Consciousness (LOC) (Year \T\ Age) - 0(Both) 1c. LOC Commands (Open \T\ Closes Eyes/Aircraft Delivery Checker) - 0(Both) 2. Best Gaze (Lateral Gaze Paresis) - 0(Normal) 3. Visual Field Loss - 0(No visual loss) 4. Facial Palsy - 0(Normal) 5a. Left Arm: Motor (10-second hold) - 0(No drift) 5b. Right Arm: Motor (10-second hold) - 0(No drift) 6a. Left Leg: Motor (5-second hold - always test supine) - 0(No drift) 6b. Right Leg: Motor (5-second hold - always test supine) - 0(No drift) 7. Limb Ataxia (finger/nose \T\ heel/veloz - test with eyes open) - 0(Absent) 8. Sensory Loss (pinprick arms/legs/face) - 1(Mild to moderate loss) 9. Best Language: Aphasia (description/naming/reading) - 0(No aphasia) 10. Dysarthria (speech clarity - read or repeat words) - 0(Normal) 11. Extinction and Inattention (visual/tactile/auditory/spatial/personal) - 0(No abnormality) Initials: jarocho Signatures: Dispatcher [employer] EDAR Casey Rodriguez MD MD cha Attema, Lee, LOGGING SHOVEL OPERATOR-C LOGGING SHOVEL OPERATOR-Cla1 Rusty Maya RN RN bp Botello, Elizabeth eb Acob, Cheryl, RN RN ca1 Corrections: (The following items were deleted from the chart) 10:45 09:17 Hospitalization Ordered by Ruddy Lynn DO for Observation. Preliminary eb diagnosis is Chest pain, unspecified; Urinary tract infection, site not specified; Transient cerebral ischemic attack, unspecified - right leg numbness. Bed requested for Telemetry/MedSurg (observation). Status is Observation. Condition is Fair. Problem is new. Symptoms have improved. jarocho 12:49 10:45 12/14/2019 09:17 Hospitalization Ordered by Ruddy Lynn DO for ca1 Observation. Preliminary diagnosis is Chest pain, unspecified; Urinary tract infection, site not specified; Transient cerebral ischemic attack, unspecified - right leg numbness. Bed requested for Telemetry/MedSurg (observation). Status is Observation. Condition is Fair. Problem is new. Symptoms have improved. eb
[2019-12-14] MEDS ORDERED: CLOPIDOGREL 75 MG TABLET ONE (09:32)
[2019-12-14] MEDS ORDERED: ASPIRIN EC 81 MG TAB PO ONE (09:33)
[2019-12-14 09:49] LABS: Urine Blood TRACE (NEG); Urine Glucose NEGATIVE (NEG); Urine Protein NEGATIVE (NEG); Urine pH 8.5 (5.0-7.0)
[2019-12-14] MEDS ORDERED: ONDANSETRON 4 MG/2 ML VIAL IV PRN (10:17)
[2019-12-14] MEDS ORDERED: ACETAMINOPHEN 500 MG TAB PO PRN (10:17)
--- NOTE | 2019-12-14 10:35 | EKG ---
Test Date: 2019-12-14 Test Time: 08:12:43 Financial Rep: SHANNON MEASUREMENT RESULTS: Intervals: Rate: 73 MA: 140 QRSD: 80 QT: 394 QTc: 434 [place]: P: 17 MA: 140 QRS: 14 T: 7 INTERPRETIVE STATEMENTS: Normal sinus rhythm with sinus arrhythmia Normal ECG Compared to ECG 04/12/2019 06:21:37 No significant changes Electronically Signed On 12-14-19 10:34:37 CDT by Cristobal Jackson
[2019-12-14] MEDS ORDERED: NA CHLORIDE 0.9% 1,000 ML IV SCH (11:00)
--- NOTE | 2019-12-14 11:08 | P.HP ---
Certification for Inpatient Patient admitted to: Observation With expected LOS: <2 Midnights Patient will require the following post-hospital care: None Practitioner: I am a practitioner with admitting privileges, knowledge of patient current condition, hospital course, and medical plan of care. Services: Services provided to patient in accordance with Admission requirements found in Title 42 Section 412.3 of the Code of Federal Regulations <Corona Shannon - Last Filed: 12/14/19 11:03> Patient admitted to: Observation With expected LOS: <2 Midnights <Ruddy Rodriguez - Last Filed: 12/14/19 16:54> Patient History Date of Service: 12/14/19 Primary Care Provider: Dr. Bermeo Reason for admission: CVA/TIA History of Present Illness: 34-year-old female with a medical history of CVA, anxiety, depression presented to the emergency department for a 1 day history of right lower extremity numbness/paresthesias. Patient reports that previously diagnosed CVA in April of 2019 at which time she was evaluated by neurology and instructed to take aspirin daily. At that time the cause of the stroke was unable to be identified. Patient's CT of the head without contrast did not show any acute findings in emergency department, but the patient persist to have right lower extremity paresthesias. ER provider discuss case with neurology who agreed to consult on this patient. Patient was admitted to the hospitalist service for further evaluation management. When I saw the patient in the emergency department she appeared calm, cooperative. Denies any pain at this time. Reports that she still is having sensation changes in her right lower extremity. Denies any motor dysfunction. Patient does report some mild speech changes but is able to speak in clear sentences and swallow without difficulty. Will admit this patient under observation for further evaluation management. Will discuss case in length with neurology. - Past Medical/Surgical History Diabetic: No -: htn -: anxiety -: CVA -: NVDx3 2006, 2007, 2009 Psychosocial/ Personal History: Patient lives at home with family. - Family History Family History: Reviewed- Non-Contributory - Social History Smoking Status: Never smoker Alcohol use: No CD- Drugs: No Caffeine use: Yes Place of Residence: Home <Corona Shannon - Last Filed: 12/14/19 11:03> Date of Service: 12/14/19 History of Present Illness: Case reviewed in detail with nurse practitioner Corona Shannon. History was confirmed with patient. - Past Medical/Surgical History -: Borderline hypertension -: Anxiety disorder -: CVA unknown etiology <Ruddy Rodriguez - Last Filed: 12/14/19 16:54> Allergies No Known Allergies Allergy (Verified 08/23/13 11:07) Home Medications: clonazePAM [Clonazepam] 1 mg PO BID 04/12/19 Apixaban [Eliquis] 5 mg PO BID #30 tablet 04/14/19 Aspirin [Aspirin EC 81 MG] 81 mg PO DAILY #30 tablet. 04/14/19 Review of Systems General: Unremarkable Eyes: Unremarkable ENT: Unremarkable Respiratory: Unremarkable Cardiovascular: Unremarkable Gastrointestinal: Unremarkable Genitourinary: Unremarkable Musculoskeletal: Unremarkable Integumentary: Unremarkable Neurological: Numbness (Right lower extremity) Lymphatics: Unremarkable <Corona Shannon - Last Filed: 12/14/19 11:03> Physical Examination - Physical Exam General: Alert, In no apparent distress, Oriented x3 HEENT: Atraumatic, Normocephalic Neck: Supple Respiratory: Clear to auscultation bilaterally, Normal air movement Cardiovascular: No edema Capillary refill: <2 Seconds Gastrointestinal: Normal bowel sounds Musculoskeletal: No swelling, No contractures Integumentary: No breakdown Neurological: Normal speech, Normal tone, Cranial nerves 3-12 intact, Abnormal sensation (Numbness right lower extremity) Lymphatics: No axilla or inguinal lymphadenopathy - Studies Laboratory Data (last 24 hrs) 12/14/19 08:25: PT 13.2 H, INR 1.12 12/14/19 08:25: WBC 5.5, Hgb 11.4 L, Hct 36.1, Plt Count 196 12/14/19 08:25: Sodium 142, Potassium 3.9, BUN 9, Creatinine 0.56, Glucose 106, Magnesium 2.0, Total Bilirubin 0.2, AST 10 L, ALT 17, Alkaline Phosphatase 66 <Corona Shannon - Last Filed: 12/14/19 11:03> - Physical Exam Other Physical/Emotional Findings: Patient was able to walk appropriately with physical therapy. No gait disturbance noted. Still some numbness to the right upper extremity - Studies Laboratory Data (last 24 hrs) 12/14/19 08:25: PT 13.2 H, INR 1.12 12/14/19 08:25: WBC 5.5, Hgb 11.4 L, Hct 36.1, Plt Count 196 12/14/19 08:25: Sodium 142, Potassium 3.9, BUN 9, Creatinine 0.56, Glucose 106, Magnesium 2.0, Total Bilirubin 0.2, AST 10 L, ALT 17, Alkaline Phosphatase 66 <HelenaRuddy garza - Last Filed: 12/14/19 16:54> Assessment and Plan - Plan Assessment Right lower extremity paresthesia likely secondary to ischemic CVA Hypertension Anxiety/depression Plan Right lower extremity paresthesia likely secondary to ischemic CVA- neurology is consulted on this case, will resume Plavix and aspirin daily in addition to DVT prophylaxis with Lovenox 40 mg subcutaneous daily. Patient is to receive MRI stroke protocol in addition to echocardiogram, ultrasound of the carotids, speech, occupational, and physical therapy evaluations. Will obtain lipid panel tomorrow morning, place patient on a statin. Patient to have routine neuro checks throughout her admission. Will await input from neurology for further management of this patient. Hypertension- patient states that she previously has taken lisinopril but stopped taking it. Will monitor patient's blood pressure closely and determine need for continuation of patient's lisinopril. Anxiety/depression-will obtain and continue patient's home medications as appropriate. Discharge Plan: Home Plan to discharge in: 24 Hours - Advance Directives Does patient have a Living Will: No Does patient have a Durable POA for Healthcare: No - Code Status/Comfort Care Code Status Assessed: Yes (Patient is full code) Critical Care: No Time Spent Managing Pts Care (In Minutes): 55 <Corona Shannon - Last Filed: 12/14/19 11:03> - Plan Patient examined. Agree with findings. Physical therapy evaluated patient. No gait disturbance noted. Case reviewed in detail with nurse practitioner and neurology. Previous lab for hypercoagulable workup was unremarkable this included: RPR, anti phospholipid antibody, prothrombin mutation, anti cardiolipin. This workup was unremarkable. Neurology recommends to continue with aspirin 81 mg daily, Plavix 75 mg daily, Lipitor mg daily, and folic acid 1 mg daily. Blood pressure is well controlled at this time. No need for medication. Patient can be discharged home today. Neurology agrees. Patient will need follow up within 1 month with Neurology. Will recommend no control medication in the future. Will recommend no smoking or use of drugs. Compliance with medication as stated. No need for chronic anti coagulation therapy at this time since prior workup for hypercoagulable state was negative. Impression: Right lower extremity paresthesia suspect TIA Anxiety disorder Hyperlipidemia Plan: Continue with above recommendation. Will discharge home. <Ruddy Rodriguez - Last Filed: 12/14/19 16:54>
--- NOTE | 2019-12-14 11:20 | RAD REPORT ---
EXAM DESCRIPTION: US - CP - 12/14/2019 11:10 am CLINICAL HISTORY: CVA/TIA COMPARISON: MRA Neck W/Wo Cont dated 04/12/2019 TECHNIQUE: Real-time sonographic evaluation of both carotid systems was performed. Doppler interroga tion was performed with waveform tracing bilaterally. FINDINGS: Normal high resistance waveforms are noted in both external carotid arteries. The common c arotid arteries and internal carotid arteries show normal low resistance waveforms. No significant plaque formation is seen. Peak systolic and end diastolic velocity values and the ICA/ CCA ratios are in the non-hemodynamically significant range. Antegrade flow seen in both vertebral arteries. IMPRESSION: No significant atherosclerotic changes noted. No evidence of a hemodynamically significant stenosis.
[2019-12-14 13:09] VITALS: O2SAT 100
[2019-12-14 13:13] VITALS: BMI 36.4
--- NOTE | 2019-12-14 15:35 | RAD REPORT ---
EXAM DESCRIPTION: MRI - MRA Head Wo Cont - 12/14/2019 3:25 pm CLINICAL HISTORY: Right leg numbness COMPARISON: 2018 TECHNIQUE: Magnetic resonance angiogram was performed. 3D MIPS reconstruction performed FINDINGS: The anterior cerebral, middle cerebral, posterior cerebral, distal internal carotid and ba silar arteries do not demonstrate a significant stenosis. An aneurysm is not displayed. IMPRESSION: Unremarkable MRA brain.
--- NOTE | 2019-12-14 15:37 | RAD REPORT ---
EXAM DESCRIPTION: MRI - MRA Neck W/Wo Cont - 12/14/2019 3:23 pm CLINICAL HISTORY: Right leg numbness COMPARISON: 2018 TECHNIQUE: Magnetic resonance angiogram of the neck was performed. 19 cc MultiHance was administered intravenously. 3D MIPS reconstruction performed FINDINGS: The common carotid, internal carotid and external carotid arteries do not demonstrate a si gnificant stenosis. An aneurysm is not seen. The vertebral arteries are codominant without visualization of an abnormality. IMPRESSION: Unremarkable MRA neck NASCET criteria used. Mild 0-49% stenosis Moderate 50-69% stenosis Severe 70-99% stenosis
--- NOTE | 2019-12-14 15:38 | RAD REPORT ---
EXAM DESCRIPTION: MRI - Brain W/Wo Cont - 12/14/2019 3:23 pm CLINICAL HISTORY: Right leg numbness COMPARISON: 2018 MRI TECHNIQUE: Axial, sagittal, and coronal magnetic images of the brain were obtained. 20 cc MultiHance administered intravenously FINDINGS: A 2 centimeter area of abnormal signal within the left periventricular white matter extend ing into the left chaudhry radiata has the appearance of an infarction. The ventricles are normal in caliber. Diffusion-weighted/ ADC mapping sequences do not demonstrate evidence of an acute infarction. No abnormal enhancement within the brain is seen. An extra-axial fluid collection is not noted. Fluid within the sinuses/mastoids is not seen. Mild chronic sphenoid sinusitis IMPRESSION: No acute abnormality displayed
[2019-12-14] MEDS ORDERED: POTASSIUM CL SA 10 MEQ TAB PO ONE (16:00)
[2019-12-14 16:58] LABS: Barbiturates NEGATIVE (NEGATIVE); Benzodiazepines NEGATIVE (NEGATIVE); Cocaine NEGATIVE (NEGATIVE); METHAMPHETAM NEGATIVE (NEGATIVE); Methadone NEGATIVE (NEGATIVE); Opiates NEGATIVE (NEGATIVE); Phencyclidine NEGATIVE (NEGATIVE); THC Cannibis NEGATIVE (NEGATIVE)
[2019-12-14 17:16] VITALS: BP 119/78; TEMP 97.8
[2019-12-14] MEDS ORDERED: CEFTRIAXONE/SWI 1gm 1 GM/10 ML SYR IV SCH (21:00)
[2019-12-14] MEDS ORDERED: ATORVASTATIN 40 MG TAB PO SCH (21:00)
[2019-12-15] MEDS ORDERED: ASPIRIN EC 81 MG TAB PO SCH (09:00)
[2019-12-15] MEDS ORDERED: CLOPIDOGREL 75 MG TABLET PO SCH (09:00)
[2019-12-15] MEDS ORDERED: ENOXAPARIN 40 MG/0.4 ML SQ SCH (09:00)
== END 2019-12-14 18:11 | disposition home or self-care (01) ==
LOC: ER 08:01 → ERHOLD 10:15 → 2ND 11:35
PROVIDERS: ADMIT Family Medicine; ATTEND Family Medicine
DX: R20.2 Paresthesia of skin (principal); R07.9 Chest pain, unspecified; I10 Essential (primary) hypertension; N39.0 Urinary tract infection, site not specified; E78.5 Hyperlipidemia, unspecified; F41.9 Anxiety disorder, unspecified; F32.9 Major depressive disorder, single episode, unspecified; F90.9 Attention-deficit hyperactivity disorder, unspecified type; R29.702 NIHSS score 2; Z79.82 Long term (current) use of aspirin; Z86.73 Personal history of transient ischemic attack (TIA), and cerebral infarction without residual deficits
CPT/HCPCS: 36415; 70450; 70544; 70549; 70553; 71045; 80048; 80076; 80307; 81003; 81025; 82947; 83735; 83880; 84484; 85025; 85610; 85652; 86140; 87086; 87088; 93005; 93880; 96361; 96365; 97116; 97161; 99285; A9577; G0378; J0696; J7030

== ENCOUNTER 2020-07-11 13:12 | Emergency (ER) | payer SELFPAY ==
--- NOTE | 2020-07-11 13:38 | RAD REPORT ---
EXAM DESCRIPTION: CT - Head Brain Wo Cont - 07/11/2020 1:30 pm CLINICAL HISTORY: Dizziness;Visual disturbances Headache, drowsiness, double vision COMPARISON: Head Brain Wo Cont dated 12/14/2019; Head Brain Wo Cont dated 05/06/2019 TECHNIQUE: All CT scans are performed using dose optimization technique as appropriate and may inclu de automated exposure control or mA/KV adjustment according to patient size. 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 The paranasal sinuses and mastoids are clear. The calvarium is intact. IMPRESSION: No acute intracranial abnormality.
[2020-07-11] MEDS ORDERED: ASPIRIN 81 MG CHEWABLE TABLET ONE (14:33)
[2020-07-11] MEDS ORDERED: NA CHLORIDE 0.9% 1,000 ML ONE (14:35)
--- NOTE | 2020-07-11 14:45 | RAD REPORT ---
EXAM DESCRIPTION: RAD - Chest Single View - 07/11/2020 2:30 pm CLINICAL HISTORY: COUGH Chest pain. COMPARISON: Chest Single View dated 12/14/2019; Chest Single View dated 04/12/2019; Chest Single View da rosalino 09/01/2018 FINDINGS: Portable technique limits examination quality. The lungs are grossly clear. The heart is normal in size. No displaced fractures. IMPRESSION: No acute intrathoracic process suspected.
[2020-07-11 14:52] LABS: Absolute Lymphocytes (CBC) 1.1 K/uL (0.7-4.9); Basophils % 0.9 % (0-1.3); Hematocrit 36.7 % (36.0-45.0); Lymphocytes % 16.2 % (15.3-44.8); MPV 10.9 fL (7.6-11.3); RBC Red Blood Cell Count 4.96 M/uL (3.86-4.86)
[2020-07-11 14:53] LABS: Protime INR 1.08
[2020-07-11] MEDS ORDERED: NA CHLORIDE 0.9% 100 ML ONE (14:54)
[2020-07-11] MEDS ORDERED: FOLIC ACID 5 MG/ML VIAL ONE (14:54)
[2020-07-11 15:13] LABS: ALT/SGPT 17 U/L (12-78); AST/SGOT 13 U/L (15-37); Albumin 3.6 g/dL (3.4-5.0); Alkaline Phosphatase 89 U/L (45-117); BUN Blood Urea Nitrogen 10 mg/dL (7-18); Bicarbonate 29 mmol/L (21-32); Bilirubin Direct < 0.1 mg/dL (0-0.2); Bilirubin Total 0.3 mg/dL (0.2-1.0); Glucose Level 76 mg/dL (74-106); Magnesium 2.3 mg/dL (1.8-2.4); NT PRO-BNP 83 pg/mL (<125); Potassium 4.1 mmol/L (3.5-5.1); Protein, Total 7.1 g/dL (6.4-8.2); Sodium Level 143 mmol/L (136-145); Troponin (Emerg Dept Use Only) < 0.02 ng/mL (0.0-0.045)
--- NOTE | 2020-07-11 16:55 | RAD REPORT ---
EXAM DESCRIPTION: MRI - Brain Wo Cont - 07/11/2020 4:46 pm CLINICAL HISTORY: DIZZINESS Headache, drowsiness COMPARISON: Head Brain Wo Cont dated 07/11/2020; MRA Neck W/Wo Cont dated 12/14/2019; Brain W/Wo Cont d ated 12/14/2019; MRA Head Wo Cont dated 12/14/2019 TECHNIQUE: Multi-sequence, multiplanar MR imaging of the brain was performed without contrast. FINDINGS: No intracranial hemorrhage, hydrocephalus or extra-axial fluid collections. 2 cm area of e levated T2/ FLAIR signal in the left periventricular region is again seen appearing slightly decrease d in size since prior study. This is likely related to previous infarction. DWI is negative for acute CVA. Midline structures are normally formed. Mild polypoid mucosal thickening is seen involving both maxillary antra. IMPRESSION: Negative for acute CVA or other acute intracranial finding.
--- NOTE | 2020-07-11 17:19 | ER ---
Nurse's Notes [facility] Name: Georgia Viera Age: 34 yrs Sex: Female : 1985 Arrival Date: 07/11/2020 Time: 13:[address] Private MD: Diagnosis: Diplopia;Acute sinusitis Presentation: 07/11 13:21 Chief complaint: Patient states: intermittent dizziness that began a week ago, and ss double vision that was noticed yesterday afternoon while only laying on R side. Coronavirus screen: Client denies travel out of the [place] in the last 14 days. Ebola Screen: Patient denies exposure to infectious person. Patient denies travel to an Ebola-affected area in the 21 days before illness onset. Initial Sepsis Screen: Does the patient meet any 2 criteria? No. Patient's initial sepsis screen is negative. Does the patient have a suspected source of infection? No. Patient's initial sepsis screen is negative. Risk Assessment: Do you want to hurt yourself or someone else? Patient reports no desire to harm self or others. Onset of symptoms was July 04, 2020. 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 - Social history:: Smoking status: Patient denies any tobacco usage or history of. - Family history:: not pertinent. Screenin:20 Abuse screen: Denies threats or abuse. Denies injuries from another. Nutritional zb screening: No deficits noted. Tuberculosis screening: No symptoms or risk factors identified. Fall Risk No fall in past 12 months (0 pts). No secondary diagnosis (0 pts). IV access (20 points). Ambulatory Aid- None/Bed Rest/Nurse Assist (0 pts). Gait- Normal/Bed Rest/Wheelchair (0 pts) Mental Status- Oriented to own ability (0 pts). Total Correa Fall Scale indicates No Risk (0-24 pts). Assessment: 14:20 General: Appears in no apparent distress. comfortable, Behavior is calm, cooperative. zb Pain: Denies pain. Neuro: Level of Consciousness is awake, alert, obeys commands, Oriented to person, place, time, Elastic Tape Inserter are equal bilaterally Moves all extremities. Speech is normal, Facial symmetry appears normal, Pupils are PERRLA, Reports blurred vision since intermittently last night diplopia, Denies weakness numbness headache. Cardiovascular: Capillary refill < 3 seconds Patient's skin is warm and dry. Respiratory: Airway is patent Respiratory effort is even, labored, Respiratory pattern is regular, symmetrical. GI: Abdomen is round non-distended. : No signs and/or symptoms were reported regarding the genitourinary system. EENT: No signs and/or symptoms were reported regarding the EENT system. Derm: Skin is intact, is healthy with good turgor, Skin is pink, warm \T\ dry. normal. Musculoskeletal: Circulation, motion, and sensation intact. Range of motion: intact in all extremities. 15:20 Reassessment: Patient appears in no apparent distress at this time. Patient and/or zb family updated on plan of care and expected duration. Pain level reassessed. Patient is alert, oriented x 3, equal unlabored respirations, skin warm/dry/pink. pt in calm, in bed. 16:20 Reassessment: Patient appears in no apparent distress at this time. Patient and/or zb family updated on plan of care and expected duration. Pain level reassessed. Patient is alert, oriented x 3, equal unlabored respirations, skin warm/dry/pink. 17:20 Reassessment: Patient appears in no apparent distress at this time. Patient and/or zb family updated on plan of care and expected duration. Pain level reassessed. Patient is alert, oriented x 3, equal unlabored respirations, skin warm/dry/pink. Vital Signs: 13:21 BP 120 / 77; Pulse 60; Resp 14; Temp 97.8(TE); Pulse Ox 99% on R/A; Weight 88.45 kg; ss Height 5 ft. 1 in. (154.94 cm); Pain 0/10; 14:20 BP 102 / 52; Pulse 99; Resp 16; Pulse Ox 100% on R/A; zb 15:20 BP 101 / 62; Pulse 51; Resp 18; Pulse Ox 100% on R/A; zb 16:20 BP 116 / 66; Pulse 52; Resp 18; Pulse Ox 100% on R/A; zb 17:20 BP 112 / 74; Pulse 67; Resp 18; Pulse Ox 100% on R/A; zb 13:21 Body Mass Index 36.84 (88.45 kg, 154.94 cm) ss NIH Stroke Scale Scores: 14:12 NIHSS Score: 0 [facility] ED Course: 13:17 Patient arrived in ED. ds1 13:23 Triage completed. ss 13:24 Arm band placed on right wrist. ss 13:30 CT Head Brain wo Cont In Process Unspecified. EDMS 14:02 Casey Rodriguez MD is Attending Physician. jarocho 14:13 Zoe Landis, JEFF is Primary Nurse. zb 14:20 Initial lab(s) drawn, by me, EKG done. zb 14:30 XRAY Chest (1 view) In Process Unspecified. EDMS 14:30 Inserted saline lock: 20 gauge in right antecubital area, using aseptic technique. zb 15:53 Patient has correct armband on for positive identification. Bed in low position. Call zb light in reach. Side rails up X 1. pvc monitor on. Pulse ox on. NIBP on. Door closed. Noise minimized. Head of bed. 16:17 Patient moved to MRI. zb 16:41 Brain Wo Cont In Process Unspecified. EDMS 17:17 Raj Zamora MD is Referral Physician. jarocho 17:40 No provider procedures requiring assistance completed. IV discontinued, intact, zb bleeding controlled, No redness/swelling at site. Pressure dressing applied. Administered Medications: 14:36 Drug: NS 0.9% 1000 ml Route: IV; Rate: 1 bolus; Site: right antecubital; zb 15:47 Follow up: Response: No adverse reaction; IV Status: Completed infusion; IV Intake: zb 1000ml 14:36 Drug: Aspirin Chewable Tablet 324 mg Route: PO; zb 15:46 Follow up: Response: No adverse reaction zb 14:36 Drug: foLIC Acid 1 mg Route: IVPB; Site: right antecubital; zb 15:46 Follow up: Response: No adverse reaction; IV Intake: 100ml zb 17:33 Drug: Rocephin 1 grams Route: IV; Rate: per protocol; Site: right antecubital; zb Intake: 15:46 IV: 100ml; Total: 100ml. zb 15:47 IV: 1000ml; Total: 1100ml. zb Outcome: 17:18 Discharge ordered by . jarocho 17:40 Discharged to home ambulatory. zb 17:40 Condition: good 17:40 Discharge instructions given to patient, Instructed on discharge instructions, follow up and referral plans. medication usage, Demonstrated understanding of instructions, follow-up care, medications, Prescriptions given X 4. 17:42 Patient left the ED. iw NIH Stroke Scale - NIH Stroke Score Date: 07/11/2020 Time: 14:12 Total Score = 0 1a. Level of Consciousness (LOC) - 0(Alert) 1b. Level of Consciousness (LOC) (Year \T\ Age) - 0(Both) 1c. LOC Commands (Open \T\ Closes Eyes/Substation Superintendent) - 0(Both) 2. Best Gaze (Lateral Gaze Paresis) - 0(Normal) 3. Visual Field Loss - 0(No visual loss) 4. Facial Palsy - 0(Normal) 5a. Left Arm: Motor (10-second hold) - 0(No drift) 5b. Right Arm: Motor (10-second hold) - 0(No drift) 6a. Left Leg: Motor (5-second hold - always test supine) - 0(No drift) 6b. Right Leg: Motor (5-second hold - always test supine) - 0(No drift) 7. Limb Ataxia (finger/nose \T\ heel/veloz - test with eyes open) - 0(Absent) 8. Sensory Loss (pinprick arms/legs/face) - 0(Normal) 9. Best Language: Aphasia (description/naming/reading) - 0(No aphasia) 10. Dysarthria (speech clarity - read or repeat words) - 0(Normal) 11. Extinction and Inattention (visual/tactile/auditory/spatial/personal) - 0(No abnormality) Initials: [facility] Signatures: Dispatcher [employer] Casey Hernandez MD MD cha Sanford, Demi ds1 Dinora Li RN RN iw Smirch, Itzel, RN RN ss Brown, Zoe, RN RN zb
--- NOTE | 2020-07-11 17:19 | EDPHYS ---
Physician Documentation [facility] Name: Georgia Viera Age: 34 yrs Sex: Female : 1985 Arrival Date: 07/11/2020 Time: 13:[address] Private MD: TOM Physician Casey Rodriguez HPI: 07/11 14:12 This 34 yrs old Female presents to ER via Ambulatory with complaints of jarocho Doubled Vision, Dizziness. 14:12 The patient presents with dizziness, diplopia. Onset: The symptoms/episode jarocho began/occurred yesterday. Context: occurred at home, occurred while the patient was at rest. Modifying factors: The symptoms are alleviated by nothing, the symptoms are aggravated by nothing. Associated signs and symptoms: Pertinent positives: diplopia. Severity of symptoms: At their worst the symptoms were mild in the emergency department the symptoms have resolved and did so just prior to arrival, and did so earlier today. Patient's baseline: Neuro:. 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 - Social history:: Smoking status: Patient denies any tobacco usage or history of. - Family history:: not pertinent. ROS: 14:12 Constitutional: Negative for fever, chills, and weight loss, ENT: Negative for injury, jarocho pain, and discharge, Neck: Negative for injury, pain, and swelling, Cardiovascular: Negative for chest pain, palpitations, and edema, Respiratory: Negative for shortness of breath, cough, wheezing, and pleuritic chest pain, Abdomen/GI: Negative for abdominal pain, nausea, vomiting, diarrhea, and constipation, Back: Negative for injury and pain, : Negative for injury, bleeding, discharge, and swelling, MS/Extremity: Negative for injury and deformity, Skin: Negative for injury, rash, and discoloration, Neuro: Negative for headache, weakness, numbness, tingling, and seizure, Psych: Negative for depression, anxiety, suicide ideation, homicidal ideation, and hallucinations, Allergy/Immunology: Negative for hives, rash, and allergies, Endocrine: Negative for neck swelling, polydipsia, polyuria, polyphagia, and marked weight changes, Hematologic/Lymphatic: Negative for swollen nodes, abnormal bleeding, and unusual bruising. 14:12 Eyes: Positive for diplopia. Exam: 14:12 Constitutional: This is a well developed, well nourished patient who is awake, alert, jarocho and in no acute distress. Head/Face: Normocephalic, atraumatic. Eyes: Pupils equal round and reactive to light, extra-ocular motions intact. Lids and lashes normal. Conjunctiva and sclera are non-icteric and not injected. Cornea within normal limits. Periorbital areas with no swelling, redness, or edema. ENT: Nares patent. No nasal discharge, no septal abnormalities noted. Tympanic membranes are normal and external auditory canals are clear. Oropharynx with no redness, swelling, or masses, exudates, or evidence of obstruction, uvula midline. Mucous membranes moist. Neck: Trachea midline, no thyromegaly or masses palpated, and no cervical lymphadenopathy. Supple, full range of motion without nuchal rigidity, or vertebral point tenderness. No Meningismus. Chest/axilla: Normal chest wall appearance and motion. Nontender with no deformity. No lesions are appreciated. Cardiovascular: Regular rate and rhythm with a normal S1 and S2. No gallops, murmurs, or rubs. Normal PMI, no JVD. No pulse deficits. Respiratory: Lungs have equal breath sounds bilaterally, clear to auscultation and percussion. No rales, rhonchi or wheezes noted. No increased work of breathing, no retractions or nasal flaring. Abdomen/GI: Soft, non-tender, with normal bowel sounds. No distension or tympany. No guarding or rebound. No evidence of tenderness throughout. Back: No spinal tenderness. No costovertebral tenderness. Full range of motion. Skin: Warm, dry with normal turgor. Normal color with no rashes, no lesions, and no evidence of cellulitis. MS/ Extremity: Pulses equal, no cyanosis. Neurovascular intact. Full, normal range of motion. Neuro: Awake and alert, GCS 15, oriented to person, place, time, and situation. Cranial nerves II-XII grossly intact. Motor strength 5/5 in all extremities. Sensory grossly intact. Cerebellar exam normal. Normal gait. Psych: Awake, alert, with orientation to person, place and time. Behavior, mood, and affect are within normal limits. 14:44 ECG was reviewed by the Attending Physician. jarocho Vital Signs: 13:21 BP 120 / 77; Pulse 60; Resp 14; Temp 97.8(TE); Pulse Ox 99% on R/A; Weight 88.45 kg; ss Height 5 ft. 1 in. (154.94 cm); Pain 0/10; 14:20 BP 102 / 52; Pulse 99; Resp 16; Pulse Ox 100% on R/A; zb 15:20 BP 101 / 62; Pulse 51; Resp 18; Pulse Ox 100% on R/A; zb 16:20 BP 116 / 66; Pulse 52; Resp 18; Pulse Ox 100% on R/A; zb 17:20 BP 112 / 74; Pulse 67; Resp 18; Pulse Ox 100% on R/A; zb 13:21 Body Mass Index 36.84 (88.45 kg, 154.94 cm) NIH Stroke Scale Scores: 14:12 NIHSS Score: 0 jarocho MDM: 14:02 Patient medically screened. jarocho 14:19 Differential diagnosis: cardiac arrhythmia, CVA, generalized weakness, hypovolemia, jarocho idiopathic dizziness, near-syncope, , TIA. Data reviewed: vital signs, nurses notes, lab test result(s), EKG, radiologic studies, CT scan, MRI, plain films. Data interpreted: milk condenser: rate is 60 beats/min, rhythm is normal sinus rhythm, Pulse oximetry: on room air is 60 %. Test interpretation: by ED physician or midlevel provider: ECG, plain radiologic studies. Counseling: I had a detailed discussion with the patient and/or guardian regarding: the historical points, exam findings, and any diagnostic results supporting the discharge/admit diagnosis, lab results, radiology results. 14:59 ED course: follow up dr bo, aspirin and plavix and folic acid to continue, jarocho adrienne as well. 07/11 14:11 Order name: Basic Metabolic Panel; Complete Time: 15:24 jarocho 07/11 14:11 Order name: CBC with Diff; Complete Time: 15:24 [facility] 07/11 14:11 Order name: LFT's; Complete Time: 15:24 [facility] 07/11 14:11 Order name: Magnesium; Complete Time: 15:24 [facility] 07/11 14:11 Order name: NT PRO-BNP; Complete Time: 15:24 [facility] 07/11 13:21 Order name: CT Head Brain wo Cont; Complete Time: 13:43 snw 07/11 14:11 Order name: PT-INR; Complete Time: 15:24 [facility] 07/11 14:11 Order name: Troponin (emerg Dept Use Only); Complete Time: 15:24 [facility] 07/11 14:11 Order name: XRAY Chest (1 view); Complete Time: 15:24 [facility] 07/11 16:37 Order name: Brain Wo Cont; Complete Time: 17:15 EDMS 07/11 14:11 Order name: EKG; Complete Time: 14:13 [facility] 07/11 14:11 Order name: Cardiac monitoring; Complete Time: 14:36 [facility] 07/11 14:11 Order name: EKG - Nurse/Tech; Complete Time: 14:35 [facility] 07/11 14:11 Order name: IV Saline Lock; Complete Time: 14:36 [facility] 07/11 14:11 Order name: Labs collected and sent; Complete Time: 14:36 [facility] 07/11 14:11 Order name: O2 Per Protocol; Complete Time: 14:36 [facility] 07/11 14:11 Order name: O2 Sat Monitoring; Complete Time: 14:36 [facility] EC:44 Rate is 57 beats/min. Rhythm is regular. QRS [place] is Normal. RI interval is normal. QRS jarocho interval is normal. QT interval is normal. No Q waves. T waves are Normal. No ST changes noted. Clinical impression: Normal ECG and No evidence of ischemia. Interpreted by me. Reviewed by me. Administered Medications: 14:36 Drug: NS 0.9% 1000 ml Route: IV; Rate: 1 bolus; Site: right antecubital; zb 15:47 Follow up: Response: No adverse reaction; IV Status: Completed infusion; IV Intake: zb 1000ml 14:36 Drug: Aspirin Chewable Tablet 324 mg Route: PO; zb 15:46 Follow up: Response: No adverse reaction zb 14:36 Drug: foLIC Acid 1 mg Route: IVPB; Site: right antecubital; zb 15:46 Follow up: Response: No adverse reaction; IV Intake: 100ml zb 17:33 Drug: Rocephin 1 grams Route: IV; Rate: per protocol; Site: right antecubital; Disposition: 07/11/20 17:18 Discharged to Home. Impression: Diplopia, Acute sinusitis. - Condition is Stable. - Discharge Instructions: Diplopia, Sinusitis, Adult, Stroke Prevention, Aspirin and Your Heart, Stroke Prevention, [id number]. - Prescriptions for Lipitor 10 mg Oral Tablet - take 1 tablet by ORAL route once daily; 30 tablet. Plavix 75 mg Oral Tablet - take 1 tablet by ORAL route once daily; 20 tablet. Folic Acid 1 mg Oral Tablet - take 1 tablet by ORAL route once daily; 30 tablet. Bactrim DS 800- 160 mg Oral Tablet - take 1 tablet by ORAL route every 12 hours for 10 days; 20 tablet. - Medication Reconciliation Form, Thank You Letter, Antibiotic Education, Prescription Opioid Use form. - Follow up: Private Physician; When: 2 - 3 days; Reason: Recheck today's complaints, Continuance of care, Re-evaluation by your physician. Follow up: Raj Bo; When: 2 - 3 days; Reason: Recheck today's complaints, Re-evaluation by your physician. - Problem is new. - Symptoms have improved. NIH Stroke Scale - NIH Stroke Score Date: 07/11/2020 Time: 14:12 Total Score = 0 1a. Level of Consciousness (LOC) - 0(Alert) 1b. Level of Consciousness (LOC) (Year \T\ Age) - 0(Both) 1c. LOC Commands (Open \T\ Closes Eyes/Plant Attendant) - 0(Both) 2. Best Gaze (Lateral Gaze Paresis) - 0(Normal) 3. Visual Field Loss - 0(No visual loss) 4. Facial Palsy - 0(Normal) 5a. Left Arm: Motor (10-second hold) - 0(No drift) 5b. Right Arm: Motor (10-second hold) - 0(No drift) 6a. Left Leg: Motor (5-second hold - always test supine) - 0(No drift) 6b. Right Leg: Motor (5-second hold - always test supine) - 0(No drift) 7. Limb Ataxia (finger/nose \T\ heel/veloz - test with eyes open) - 0(Absent) 8. Sensory Loss (pinprick arms/legs/face) - 0(Normal) 9. Best Language: Aphasia (description/naming/reading) - 0(No aphasia) 10. Dysarthria (speech clarity - read or repeat words) - 0(Normal) 11. Extinction and Inattention (visual/tactile/auditory/spatial/personal) - 0(No abnormality) Initials: [facility] Signatures: Dispatcher [employer] [facility] Casey Rodriguez MD MD cha Waters, Shelly, TALENT ACQUISITION DIRECTOR-C TALENT ACQUISITION DIRECTOR-Csnw Dinora Li, JEFF RN iw Itzel English RN RN ss Brown, Zipporah, RN RN zanaya Corrections: (The following items were deleted from the chart) 16:37 14:13 MR STROKE PROTOCOL+MRI.RAD.[id number] ordered. [facility] 17:42 17:18 07/11/2020 17:18 Discharged to Home. Impression: Diplopia; Acute iw sinusitis. Condition is Stable. Discharge Instructions: Diplopia, Aspirin and Your Heart, Stroke Prevention, Stroke Prevention, [id number]. Prescriptions for Lipitor 10 mg Oral Tablet - take 1 tablet by ORAL route once daily; 30 tablet, Plavix 75 mg Oral Tablet - take 1 tablet by ORAL route once daily; 20 tablet, Folic Acid 1 mg Oral Tablet - take 1 tablet by ORAL route once daily; 30 tablet. and Forms are Medication Reconciliation Form, Thank You Letter, Antibiotic Education, Prescription Opioid Use. Follow up: Private Physician; When: 2 - 3 days; Reason: Recheck today's complaints, Continuance of care, Re-evaluation by your physician. Follow up: Raj Bo; When: 2 - 3 days; Reason: Recheck today's complaints, Re-evaluation by your physician. Problem is new. Symptoms have improved. jarocho
[2020-07-11] MEDS ORDERED: CEFTRIAXONE/SWI 1gm 1 GM/10 ML SYR ONE (17:42)
--- NOTE | 2020-07-12 20:03 | EKG ---
Test Date: 2020-07-11 Test Time: 14:25:24 Smelter Charger: NELLIE MEASUREMENT RESULTS: Intervals: Rate: 57 SC: 148 QRSD: 80 QT: 416 QTc: 404 [place]: P: 9 SC: 148 QRS: 17 T: 3 INTERPRETIVE STATEMENTS: Sinus bradycardia with sinus arrhythmia Cannot rule out Anterior infarct, age undetermined Abnormal ECG Compared to ECG 12/14/2019 08:12:43 Myocardial infarct finding now present Sinus rhythm no longer present Electronically Signed On 07-12-20 20:01:22 [employer] by Cristobal Jackson
[2020-07-16 19:00] VITALS: TEMP 97.8
[2020-07-16 19:01] VITALS: O2SAT 100
[2020-07-16 19:02] VITALS: BP 101/62
== END 2020-07-11 17:42 | disposition home or self-care (01) ==
LOC: ER 13:12
DX: J01.90 Acute sinusitis, unspecified (principal); H53.2 Diplopia; I10 Essential (primary) hypertension; F41.8 Other specified anxiety disorders; Z79.01 Long term (current) use of anticoagulants; Z86.73 Personal history of transient ischemic attack (TIA), and cerebral infarction without residual deficits
CPT/HCPCS: 36415; 70450; 70551; 71045; 80048; 80076; 83735; 83880; 84484; 85025; 85610; 93005; 96361; 96374; 96375; 99285; J0696; J7030

== ENCOUNTER 2020-07-20 23:36 | Emergency (ER) | payer SELFPAY ==
[2020-07-21] MEDS ORDERED: PROMETHAZINE INJ 25 MG/ML AMP ONE (00:29)
[2020-07-21] MEDS ORDERED: NA CHLORIDE 0.9% 1,000 ML ONE (00:29)
[2020-07-21 00:41] LABS: Protime INR 1.04
[2020-07-21 00:42] LABS: Absolute Lymphocytes (CBC) 1.3 K/uL (0.7-4.9); Basophils % 0.4 % (0-1.3); Hematocrit 34.4 % (36.0-45.0); Lymphocytes % 16.5 % (15.3-44.8); MPV 10.3 fL (7.6-11.3)
[2020-07-21 00:54] LABS: ALT/SGPT 14 U/L (12-78); AST/SGOT 11 U/L (15-37); Albumin 3.5 g/dL (3.4-5.0); Alkaline Phosphatase 89 U/L (45-117); BUN Blood Urea Nitrogen 12 mg/dL (7-18); Bicarbonate 24 mmol/L (21-32); Bilirubin Direct < 0.1 mg/dL (0-0.2); Bilirubin Total 0.2 mg/dL (0.2-1.0); Glucose Level 96 mg/dL (74-106); Magnesium 2.1 mg/dL (1.8-2.4); NT PRO-BNP 36 pg/mL (<125); Potassium 3.9 mmol/L (3.5-5.1); Protein, Total 6.9 g/dL (6.4-8.2); Sodium Level 140 mmol/L (136-145); Troponin (Emerg Dept Use Only) < 0.02 ng/mL (0.0-0.045)
[2020-07-21 01:28] LABS: Urine Blood TRACE (NEG); Urine Glucose NEGATIVE (NEG); Urine Protein NEGATIVE (NEG); Urine Specific Gravity 1.025 (1.005-1.030); Urine pH 6.5 (5.0-7.0)
[2020-07-21 01:40] LABS: Barbiturates NEGATIVE (NEGATIVE); Benzodiazepines NEGATIVE (NEGATIVE); Cocaine NEGATIVE (NEGATIVE); METHAMPHETAM NEGATIVE (NEGATIVE); Methadone NEGATIVE (NEGATIVE); Opiates NEGATIVE (NEGATIVE); Phencyclidine NEGATIVE (NEGATIVE); THC Cannibis NEGATIVE (NEGATIVE)
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
--- NOTE | 2020-07-21 01:47 | EDPHYS ---
Physician Documentation [facility] Name: Georgia Viera Age: 34 yrs Sex: Female : 1985 Arrival Date: 07/20/2020 Time: 23:37 Bed 7 Private MD: Germain Bermeo T ED Physician Yang Miller HPI: 07/21 00:16 This 34 yrs old Female presents to ER via Ambulatory with complaints of mh7 Dizziness, Blurred Vision, Nausea, cant sleep. 00:16 The patient presents with dizziness, sense of spinning. Onset: The symptoms/episode mh7 began/occurred 2 week(s) ago. Onset: The symptoms/episode began/occurred intermittently. Context: occurred at an unknown location, occurred while the patient was sitting, standing, just prior to the episode the patient experienced blurred vision, nausea. Modifying factors: The symptoms are alleviated by holding head still, the symptoms are aggravated by movement of head, changing position. Associated signs and symptoms: Pertinent positives: blurred vision, nausea, Pertinent negatives: abdominal pain, agitation, ataxia, chest pain, combativeness, confusion, diaphoresis, focal weakness, head injury, headache, near-syncope, numbness, palpitations, , seizure, shortness of breath, syncope, tingling, vomiting. Severity of symptoms: At their worst the symptoms were moderate yesterday, in the emergency department the symptoms are unchanged. The patient has been recently seen by a physician: 1 week(s) ago. ROADMASTER: 00:08 LMP N/A - control method rv Historical: - Allergies: 07/20 23:55 No Known Allergies; dm5 - Home Meds: 23:55 Clonazepam Oral [Active]; Plavix 75 mg Oral tab 1 tab once daily [Active]; aspirin 81 dm5 mg Oral chew 1 tab once daily [Active]; fluoxetine Oral [Active]; atorvastatin Oral [Active]; - PMHx: 23:55 ADD/ADHD; Anxiety; CVA; Depression; Hypertension; dm5 - Immunization history:: Adult Immunizations up to date. - Social history:: Smoking status: Patient/guardian denies using tobacco, Stopped _ months ago 3. ROS: 07/21 00:16 Constitutional: Negative for fever, chills, and weight loss, ENT: Negative for injury, mh7 pain, and discharge, Neck: Negative for injury, pain, and swelling, Cardiovascular: Negative for chest pain, palpitations, and edema, Respiratory: Negative for shortness of breath, cough, wheezing, and pleuritic chest pain, Back: Negative for injury and pain, : Negative for injury, bleeding, discharge, and swelling, MS/Extremity: Negative for injury and deformity, Skin: Negative for injury, rash, and discoloration. Psych: Negative for depression, anxiety, suicide ideation, homicidal ideation, and hallucinations, Allergy/Immunology: Negative for hives, rash, and allergies, Endocrine: Negative for neck swelling, polydipsia, polyuria, polyphagia, and marked weight changes, Hematologic/Lymphatic: Negative for swollen nodes, abnormal bleeding, and unusual bruising. Abdomen/GI: Negative for abdominal pain, vomiting, diarrhea, constipation, abdominal cramps, abdominal distension, anorexia, dysphagia, hematemesis, black/tarry stool, rectal pain, rectal bleeding, bowel incontinence, flatulence. Exam: 00:16 Constitutional: This is a well developed, well nourished patient who is awake, alert, mh7 and in no acute distress. Head/Face: Normocephalic, atraumatic. Eyes: Pupils equal round and reactive to light, extra-ocular motions intact. Lids and lashes normal. Conjunctiva and sclera are non-icteric and not injected. Cornea within normal limits. Periorbital areas with no swelling, redness, or edema. ENT: Nares patent. No nasal discharge, no septal abnormalities noted. Tympanic membranes are normal and external auditory canals are clear. Oropharynx with no redness, swelling, or masses, exudates, or evidence of obstruction, uvula midline. Mucous membranes moist. Neck: Trachea midline, no thyromegaly or masses palpated, and no cervical lymphadenopathy. Supple, full range of motion without nuchal rigidity, or vertebral point tenderness. No Meningismus. Chest/axilla: Normal chest wall appearance and motion. Nontender with no deformity. No lesions are appreciated. Cardiovascular: Regular rate and rhythm with a normal S1 and S2. No gallops, murmurs, or rubs. Normal PMI, no JVD. No pulse deficits. Respiratory: Lungs have equal breath sounds bilaterally, clear to auscultation and percussion. No rales, rhonchi or wheezes noted. No increased work of breathing, no retractions or nasal flaring. Abdomen/GI: Soft, non-tender, with normal bowel sounds. No distension or tympany. No guarding or rebound. No evidence of tenderness throughout. Back: No spinal tenderness. No costovertebral tenderness. Full range of motion. Skin: Warm, dry with normal turgor. Normal color with no rashes, no lesions, and no evidence of cellulitis. MS/ Extremity: Pulses equal, no cyanosis. Neurovascular intact. Full, normal range of motion. Neuro: Awake and alert, GCS 15, oriented to person, place, time, and situation. Cranial nerves II-XII grossly intact. Motor strength 5/5 in all extremities. Sensory grossly intact. Cerebellar exam normal. Normal gait. Psych: Awake, alert, with orientation to person, place and time. Behavior, mood, and affect are within normal limits. Vital Signs: 07/20 23:48 BP 117 / 74; Pulse 68; Resp 18; Temp 97.1; Pulse Ox 99% on R/A; Weight 90.72 kg (R); dm5 Height 5 ft. 1 in. (154.94 cm); Pain 0/10; 07/21 01:47 BP 116 / 72; Pulse 71; Resp 17; Temp 98; Pulse Ox 99% on R/A; rv 07/20 23:48 Body Mass Index 37.79 (90.72 kg, 154.94 cm) dm5 MDM: 01:41 Differential diagnosis: cardiac arrhythmia, head injury, hypovolemia, idiopathic mh7 dizziness, near-syncope, , vertigo. Data reviewed: vital signs, nurses notes, old medical records, lab test result(s), cardiac enzymes, CBC, electrolytes, urinalysis, EKG, radiologic studies, CT scan, plain films. Data interpreted: Pulse oximetry: on room air is 99 %. Interpretation: normal. Counseling: I had a detailed discussion with the patient and/or guardian regarding: the historical points, exam findings, and any diagnostic results supporting the discharge/admit diagnosis, lab results, radiology results, the need for outpatient follow up, an ENT specialist, a neurologist. Response to treatment: the patient's symptoms have resolved after treatment, the patient's blood pressure is in an acceptable range, mental status has returned to baseline, the patient no longer shows bradycardia, the patient is not short of breath, the patient is not tachycardic, the patient's pain is gone, the patient's temperature has normalized, the patient is now symptom free, patient is well hydrated. 01:46 Patient medically screened. [facility] 07/21 00:06 Order name: Basic Metabolic Panel; Complete Time: 00:55 [facility] 07/21 00:06 Order name: CBC with Diff; Complete Time: 00:55 [facility] 07/21 00:06 Order name: LFT's; Complete Time: 00:55 [facility] 07/21 00:06 Order name: Magnesium; Complete Time: 00:55 [facility] 07/21 00:06 Order name: NT PRO-BNP; Complete Time: 00:55 [facility] 07/21 00:06 Order name: PT-INR; Complete Time: 00:55 [facility] 07/21 00:06 Order name: Troponin (emerg Dept Use Only); Complete Time: 00:55 [facility] 07/21 00:06 Order name: XRAY Chest (1 view) [facility] 07/21 00:06 Order name: CT Head Brain wo Cont [facility] 07/21 00:07 Order name: UDS [facility] 07/21 00:07 Order name: Glucose, Ancillary Testing; Complete Time: 00:46 EDMS 07/21 01:13 Order name: Urine --Ancillary (enter results); Complete Time: 01:33 tt3 07/21 01:13 Order name: Urine Dipstick--Ancillary (enter results); Complete Time: 01:33 07/21 00:06 Order name: EKG; Complete Time: 00:07 [facility] 07/21 00:06 Order name: Cardiac monitoring; Complete Time: 00:09 [facility] 07/21 00:06 Order name: EKG - Nurse/Tech; Complete Time: 00:09 [facility] 07/21 00:06 Order name: IV Saline Lock; Complete Time: 00:10 [facility] 07/21 00:06 Order name: Labs collected and sent; Complete Time: 00:10 [facility] 07/21 00:06 Order name: O2 Per Protocol; Complete Time: 00:10 [facility] 07/21 00:06 Order name: O2 Sat Monitoring; Complete Time: 00:09 [facility] 07/21 00:07 Order name: Urine Dipstick-Ancillary (obtain specimen); Complete Time: 00:09 7 07/21 00:07 Order name: Urine Test (obtain specimen); Complete Time: 00:09 7 Administered Medications: 00:09 Drug: NS 0.9% 1000 ml Route: IV; Rate: 1000 ml; Site: right antecubital; ea 01:49 Follow up: IV Status: Completed infusion; IV Intake: 1000ml rv 00:15 Drug: Phenergan 12.5 mg Route: IVP; Site: right antecubital; rv 01:49 Follow up: Response: No adverse reaction rv Disposition: 07/21/20 01:46 Discharged to Home. Impression: Vertigo. - Condition is Stable. - Discharge Instructions: Vertigo, Pzlk-je-Hale. - Prescriptions for Meclizine 25 mg Oral Tablet - take 1 tablet by ORAL route every 8 hours As needed; 21 tablet. - Medication Reconciliation Form, Thank You Letter, Antibiotic Education, Prescription Opioid Use form. - Follow up: Private Physician; When: 1 - 2 days; Reason: Worsening of condition, Recheck today's complaints, Continuance of care, Re-evaluation by your physician. Follow up: Kalpana Pardo MD; When: 1 - 2 days; Reason: Worsening of condition, Recheck today's complaints. Follow up: Raj Zamora MD; When: 1 - 2 days; Reason: Worsening of condition, Recheck today's complaints. - Problem is an ongoing problem. - Symptoms have improved. Signatures: Dispatcher [employer] EDPR Delfina Trevizo RN RN dm5 Lucy Null RN Ez Archer ea, RN RN rv Holmes, Maurice, MD MD 7 Corrections: (The following items were deleted from the chart) 01:52 01:46 07/21/2020 01:46 Discharged to Home. Impression: Vertigo. Condition is Stable. rv Forms are Medication Reconciliation Form, Thank You Letter, Antibiotic Education, Prescription Opioid Use. Follow up: Private Physician; When: 1 - 2 days; Reason: Worsening of condition, Recheck today's complaints, Continuance of care, Re-evaluation by your physician. Follow up: Kalpana Pardo; When: 1 - 2 days; Reason: Worsening of condition, Recheck today's complaints. Follow up: Raj Zamora; When: 1 - 2 days; Reason: Worsening of condition, Recheck today's complaints. Problem is an ongoing problem. Symptoms have improved. mh7
--- NOTE | 2020-07-21 07:48 | RAD REPORT ---
EXAM DESCRIPTION: Oren Single View07/21/2020 12:18 am CLINICAL HISTORY: Dizziness and double vision COMPARISON: July 11, 2020 FINDINGS: The lungs appear clear of acute infiltrate. The heart is normal size IMPRESSION: No acute abnormalities displayed
--- NOTE | 2020-07-22 10:26 | RAD REPORT ---
EXAM DESCRIPTION: CT - Head Brain Wo Cont - 07/21/2020 4:09 am CLINICAL HISTORY: 34 years Female DIZZINESS COMPARISON: CT head without contrast dated July 11, 2020 Technique: Contiguous axial images of the brain were obtained without the administration of intrave nous contrast.This exam was performed according to our departmental dose-optimization program which i ncludes use of Automated Exposure Control, adjustment of the mA and/or kV according to patient size a nd/or use of iterative reconstruction technique. DLP: 787 mGy*cm FINDINGS: Brain: No acute intracranial hemorrhage. No extra-axial collection. No mass effect or nicholas iation. Continued evidence of left periventricular hypodensity, left conspicuous when compared to lita or exam. Ventricles: Within normal limits in size. Globes and orbits: No acute abnormality. Bones: No acute osseous finding Paranasal sinuses: Paranasal sinuses are clear. Mastoid air cells: Well pneumatized. Soft tissues: Within normal limits IMPRESSION: No acute intracranial abnormality. Decreased conspicuity of left periventricular hypodensity. Electronically signed by: Alessio Martino DO 07/21/2020 12:45 AM PATIENT MANAGER Due to temporary technical issues with the PACS/Fluency reporting system, reports are being signed by the in house radiologist without review as a courtesy to ensure prompt reporting. The interpreting r adiologist is fully responsible for the content of the report.
[2020-07-24 06:42] VITALS: BP 118/79; TEMP 98.1; O2SAT 100
== END 2020-07-21 01:52 | disposition home or self-care (01) ==
LOC: ER 23:36
DX: R42 Dizziness and giddiness (principal); I10 Essential (primary) hypertension; F41.8 Other specified anxiety disorders; Z86.73 Personal history of transient ischemic attack (TIA), and cerebral infarction without residual deficits; Z79.01 Long term (current) use of anticoagulants; Z79.82 Long term (current) use of aspirin
CPT/HCPCS: 36415; 70450; 71045; 80048; 80076; 80307; 81003; 81025; 82947; 83735; 83880; 84484; 85025; 85610; 93005; 96361; 96374; 99284; J2550; J7030

== ENCOUNTER 2020-11-19 19:21 | Emergency (ER) | payer SELFPAY ==
--- NOTE | 2020-11-19 20:14 | ER ---
Nurse's Notes [facility] Name: Georgia Viera Age: 35 yrs Sex: Female : 1985 Arrival Date: 11/19/2020 Time: 19:23 Bed Waiting Private MD: Diagnosis: ED Course: 11/19 19:23 Patient arrived in ED. cl3 20:13 Patient's name was called from ER lobby. No response. Unable to locate patient. Will bb disposition as left without being seen by a provider. Administered Medications: No medications were administered Outcome: 20:13 Patient left the ED. bb Signatures: Madalyn Bond RN RN bb Rey [place] cl3
== END 2020-11-19 20:13 | disposition left against medical advice (07) ==
LOC: ER 19:21
DX: Z02.9 Encounter for administrative examinations, unspecified (principal)

== ENCOUNTER 2021-07-23 07:47 | Emergency (ER) | payer SELFPAY ==
[2021-07-23 08:14] LABS: Absolute Lymphocytes (CBC) 1.5 K/uL (0.7-4.9); Basophils % 0.8 % (0-1.3); Hematocrit 40.5 % (36.0-45.0); Lymphocytes % 24.1 % (15.3-44.8); MPV 9.2 fL (7.6-11.3); RBC Red Blood Cell Count 5.21 M/uL (3.86-4.86)
[2021-07-23 08:19] LABS: Protime INR 1.1
--- NOTE | 2021-07-23 08:25 | RAD REPORT ---
EXAM DESCRIPTION: Oren Single View07/23/2021 8:17 am CLINICAL HISTORY: Chest pain COMPARISON: 2019 FINDINGS: The lungs appear clear of acute infiltrate. The heart is normal size IMPRESSION: No acute abnormalities displayed
[2021-07-23 08:36] LABS: ALT/SGPT 97 U/L (12-78); AST/SGOT 52 U/L (15-37); Alkaline Phosphatase 83 U/L (45-117); BUN Blood Urea Nitrogen 12 mg/dL (7-18); Bicarbonate 23 mmol/L (21-32); Bilirubin Direct 0.1 mg/dL (0-0.2); Glucose Level 98 mg/dL (74-106); NT PRO-BNP 19 pg/mL (<125); Potassium 3.3 mmol/L (3.5-5.1); Protein, Total 7.1 g/dL (6.4-8.2); Sodium Level 144 mmol/L (136-145); Troponin (Emerg Dept Use Only) < 0.02 ng/mL (0.0-0.045)
[2021-07-23 08:46] LABS: Anisocytosis 2+; Blood Morphology Comment NOTED (NOT SEEN); Platelet Estimate ADEQ; White Blood Cell Scan OK (OK)
--- NOTE | 2021-07-23 08:46 | RAD REPORT ---
EXAM DESCRIPTION: CT - Head Brain Wo Cont - 07/23/2021 8:22 am CLINICAL HISTORY: Dizziness/double vision COMPARISON: 2019 TECHNIQUE: Computed axial tomography of the head was obtained. IV contrast was not requested. All CT scans are performed using dose optimization technique as appropriate and may include automated exposure control or mA/KV adjustment according to patient size. FINDINGS: An intracranial bleed is not seen . The ventricles are normal in caliber. Small fluid collection along the medial temporal lobe may represent a small arachnoid cyst. Fluid within the sinuses/ mastoids is not seen. IMPRESSION: No acute intracranial abnormality is seen. If patient's symptoms persist MRI of the bra in would be recommended.
[2021-07-23 09:09] LABS: Albumin 3.6 g/dL (3.4-5.0); Bilirubin Total 0.2 mg/dL (0.2-1.0); Magnesium 1.7 mg/dL (1.8-2.4)
--- NOTE | 2021-07-23 10:29 | EDPHYS ---
Physician Documentation [facility] Name: Georgia Viera Age: 35 yrs Sex: Female : 1985 Arrival Date: 07/23/2021 Time: 07:48 Bed 5 Private MD: ED Physician Jose A Chatman HPI: 07/23 08:04 This 35 yrs old Female presents to ER via Unassigned with complaints of Chest kdr Pain, Dizziness, Blurred Vision. 08:04 Patient states that she started to have chest pain last evening and at the same time kdr she was also having some visual changes. She says she has mild double vision. She has had a prior stroke several years ago. At that time she had right-sided weakness. Her face was not involved but she did have slurred speech at that time. Currently she does not have any the symptoms. However, given the prior stroke, she has a heightened sense of awareness concern when she has symptoms. Her chest pain started last night but resolved and is not currently present. The double vision also started last evening and has not changed since onset. She denies any other associated signs or symptoms. Onset: The symptoms/episode began/occurred last night. Severity of symptoms: At their worst the symptoms were mild in the emergency department the symptoms are unchanged. The patient has not experienced similar symptoms in the past, As noted previously she has had a stroke in the past involving right-sided upper and lower extremity weakness. The patient has not recently seen a physician. FINANCE MGR: 07:53 LMP 07/15/2021 ww Historical: - Allergies: 07:51 No Known Allergies; ll1 - PMHx: 07:51 Depression; Hypertension; CVA; Anxiety; ADD/ADHD; ll1 - Immunization history:: Adult Immunizations Client reports receiving the 2nd dose of the Covid vaccine, Flu vaccine is up to date. - Social history:: Smoking status: Patient/guardian denies using tobacco, the patient reports quitting approximately 3 years ago. ROS: 08:04 Constitutional: Negative for fever, chills, and weight loss, Eyes: Negative for injury, kdr pain, redness, and discharge, ENT: Negative for injury, pain, and discharge, Neck: Negative for injury, pain, and swelling, Respiratory: Negative for shortness of breath, cough, wheezing, and pleuritic chest pain, Abdomen/GI: Negative for abdominal pain, nausea, vomiting, diarrhea, and constipation, Back: Negative for injury and pain, : Negative for injury, bleeding, discharge, and swelling, MS/Extremity: Negative for injury and deformity, Skin: Negative for injury, rash, and discoloration, Psych: Negative for depression, anxiety, suicide ideation, homicidal ideation, and hallucinations, Allergy/Immunology: Negative for hives, rash, and allergies, Endocrine: Negative for neck swelling, polydipsia, polyuria, polyphagia, and marked weight changes, Hematologic/Lymphatic: Negative for swollen nodes, abnormal bleeding, and unusual bruising. 08:04 Cardiovascular: Positive for chest pain, Negative for edema, orthopnea, palpitations, paroxysmal nocturnal dyspnea, acute changes. 08:04 Neuro: Positive for dizziness, visual changes, Negative for altered mental status, gait disturbance, headache, hearing loss, loss of consciousness, The patient was able to drive herself to the hospital. Exam: 08:07 Constitutional: This is a well developed, well nourished patient who is awake, alert, kdr and in no acute distress. Head/Face: Normocephalic, atraumatic. Eyes: Pupils equal round and reactive to light, extra-ocular motions intact. Lids and lashes normal. Conjunctiva and sclera are non-icteric and not injected. Cornea within normal limits. Periorbital areas with no swelling, redness, or edema. Neck: Trachea midline, no thyromegaly or masses palpated, and no cervical lymphadenopathy. Supple, full range of motion without nuchal rigidity, or vertebral point tenderness. No Meningismus. Chest/axilla: Normal chest wall appearance and motion. Nontender with no deformity. No lesions are appreciated. Cardiovascular: Regular rate and rhythm with a normal S1 and S2. No gallops, murmurs, or rubs. Normal PMI, no JVD. No pulse deficits. Respiratory: Lungs have equal breath sounds bilaterally, clear to auscultation and percussion. No rales, rhonchi or wheezes noted. No increased work of breathing, no retractions or nasal flaring. Abdomen/GI: Soft, non-tender, with normal bowel sounds. No distension or tympany. No guarding or rebound. No evidence of tenderness throughout. Back: No spinal tenderness. No costovertebral tenderness. Full range of motion. Skin: Warm, dry with normal turgor. Normal color with no rashes, no lesions, and no evidence of cellulitis. MS/ Extremity: Pulses equal, no cyanosis. Neurovascular intact. Full, normal range of motion. Neuro: Awake and alert, GCS 15, oriented to person, place, time, and situation. Cranial nerves II-XII grossly intact. Motor strength 5/5 in all extremities. Sensory grossly intact. Cerebellar exam normal. Normal gait. Psych: Awake, alert, with orientation to person, place and time. Behavior, mood, and affect are within normal limits. 08:07 ECG was reviewed by the Attending Physician. Vital Signs: 07:53 BP 121 / 84; Pulse 92; Resp 20; Temp 98.1; Pulse Ox 99% on R/A; Weight 97.52 kg; Height ww 5 ft. 1 in. (154.94 cm); 09:00 BP 110 / 70; Pulse 81; Resp 11; Pulse Ox 98% ; bp 10:15 BP 110 / 67; Pulse 77; Resp 12; Pulse Ox 99% ; bp 07:53 Body Mass Index 40.62 (97.52 kg, 154.94 cm) ww MDM: 08:54 Data reviewed: vital signs, nurses notes, lab test result(s), EKG, radiologic studies. kdr Counseling: I had a detailed discussion with the patient and/or guardian regarding: the historical points, exam findings, and any diagnostic results supporting the discharge/admit diagnosis, lab results, radiology results. ED course: Patient continues to be stable without change in her current symptoms. 10:28 Patient medically screened. kdr 10:29 ED course: Patient stated that she had a doctor's appointment at 11:00 that she had to kdr get to. She has had no worsening of her symptoms and was otherwise not concerned.. 07/23 07:54 Order name: Basic Metabolic Panel; Complete Time: :19 kdr 07/23 07:54 Order name: CBC with Diff; Complete Time: 08:52 kdr 07/23 07:54 Order name: LFT's; Complete Time: 09:19 kdr 07/23 07:54 Order name: Magnesium; Complete Time: : kdr 07/23 07:54 Order name: NT PRO-BNP; Complete Time: : kdr 07/23 07:54 Order name: PT-INR; Complete Time: 08:52 kdr 07/23 07:54 Order name: Troponin (emerg Dept Use Only); Complete Time: 09:19 [facility] 07/23 07:54 Order name: XRAY Chest (1 view); Complete Time: 08:52 kdr 07/23 07:54 Order name: EKG; Complete Time: 07:55 kdr 07/23 07:54 Order name: Cardiac monitoring; Complete Time: 08:13 [facility] 07/23 08:04 Order name: CT Head Brain wo Cont; Complete Time: 08:52 kdr 07/23 08:14 Order name: Glucose, Ancillary Testing; Complete Time: 08:52 EDMS 07/23 08:15 Order name: CBC Smear Scan; Complete Time: 08:52 EDDE 07/23 07:54 Order name: EKG - Nurse/Tech; Complete Time: 08:13 kdr 07/23 07:54 Order name: IV Saline Lock; Complete Time: 08:13 kdr 07/23 07:54 Order name: Labs collected and sent; Complete Time: 08:13 [facility] 07/23 07:54 Order name: O2 Per Protocol; Complete Time: 08:13 kdr 07/23 07:54 Order name: O2 Sat Monitoring; Complete Time: 08:13 kdr EC:07 Rate is 90 beats/min. Rhythm is irregular, Sinus arrythmia with No ectopy. QRS [place] is kdr Normal. CA interval is normal. QRS interval is normal. QT interval is normal. Clinical impression: NSR w/ Non-specific ST/T Changes. Administered Medications: No medications were administered Disposition Summary: 07/23/21 10:28 Left Against Medical Advice Location: Home kdr Problem: new kdr Symptoms: are unchanged kdr Condition: Stable kdr Diagnosis - Chest pain, visual changes kdr Followup: kdr - With: Private Physician - When: 2 - 3 days - Reason: If symptoms return, Further diagnostic work-up, Recheck today's complaints, Continuance of care, Re-evaluation by your physician Discharge Instructions: - Discharge Summary Sheet kdr - Visual Disturbances kdr - Nonspecific Chest Pain, Adult, [id number] kdr Signatures: Dispatcher [employer] EDJose A Irizarry MD MD kdr Nica Samayoa RN RN ll1 Katie Desir RN RN ww
--- NOTE | 2021-07-23 10:29 | ER ---
Nurse's Notes [facility] Name: Georgia Viera Age: 35 yrs Sex: Female : 1985 Arrival Date: 07/23/2021 Time: 07:48 Bed 5 Private MD: Diagnosis: Chest pain, visual changes Presentation: 07/23 07:52 Ebola Screen: Patient denies travel to an Ebola-affected area in the 21 days before ll1 illness onset. Risk Assessment: Do you want to hurt yourself or someone else?. 07:52 Acuity: MILI 3 ll1 07:53 Chief complaint: Patient states: Double vision and dizziness that started last night ww but has gotten worse this morning. Intermittent midsternal stabbing chest pain that does not radiate that started yesterday and has resolved. Right leg dragging after walking for awhile that started a few weeks ago. Coronavirus screen: Vaccine status: Patient reports receiving the 2nd dose of the covid vaccine. Client denies travel out of the [place] in the last 14 days. Initial Sepsis Screen: Does the patient meet any 2 criteria? No. Patient's initial sepsis screen is negative. Does the patient have a suspected source of infection? No. Patient's initial sepsis screen is negative. Onset of symptoms was July 22, 2021. 07:53 Method Of Arrival: Ambulatory ww Triage Assessment: 07:53 General: Appears comfortable, well developed, well nourished, Behavior is calm, ww cooperative, appropriate for age. Pain: Denies pain. EENT: Eyes PERRLA. Reports blurred vision Double vision. Neuro: Level of Consciousness is awake, alert, obeys commands, Oriented to person, place, time, situation, Moves all extremities. decrease sensation on right lower extremity. Cardiovascular: Reports chest pain, intermittent that resolved last night Capillary refill < 3 seconds in bilateral fingers Rhythm is regular. Respiratory: No deficits noted. Airway is patent Respiratory effort is even, unlabored, Respiratory pattern is regular, symmetrical. GI: No deficits noted. No signs and/or symptoms were reported involving the gastrointestinal system. : No deficits noted. No signs and/or symptoms were reported regarding the genitourinary system. Derm: No deficits noted. No signs and/or symptoms reported regarding the dermatologic system. Skin is intact, Skin is dry, Skin is pink, warm \T\ dry. DIRECTOR CONTENT MARKETING: 07:53 LMP 07/15/2021 ww Historical: - Allergies: 07:51 No Known Allergies; ll1 - PMHx: 07:51 Depression; Hypertension; CVA; Anxiety; ADD/ADHD; ll1 - Immunization history:: Adult Immunizations Client reports receiving the 2nd dose of the Covid vaccine, Flu vaccine is up to date. - Social history:: Smoking status: Patient/guardian denies using tobacco, the patient reports quitting approximately 3 years ago. Screenin:04 Abuse screen: Denies threats or abuse. Denies injuries from another. Nutritional bp screening: No deficits noted. Tuberculosis screening: No symptoms or risk factors identified. Fall Risk None identified. Assessment: 08:04 General: SEE TRIAGE NOTE. bp 09:00 Reassessment: Patient appears in no apparent distress at this time. No changes from bp previously documented assessment. Patient and/or family updated on plan of care and expected duration. Pain level reassessed. 10:15 Reassessment: PT LEAVING AMA. URGED TO REMAIN BY PROVIDER AND STAFF BUT REFUSED. PT bp AOx4, AMBULATORY WITH STEADY GAIT. PT COUNSELED TO RETURN IF S/S RETURN OR WORSEN. Vital Signs: 07:53 BP 121 / 84; Pulse 92; Resp 20; Temp 98.1; Pulse Ox 99% on R/A; Weight 97.52 kg; Height ww 5 ft. 1 in. (154.94 cm); 09:00 BP 110 / 70; Pulse 81; Resp 11; Pulse Ox 98% ; bp 10:15 BP 110 / 67; Pulse 77; Resp 12; Pulse Ox 99% ; bp 07:53 Body Mass Index 40.62 (97.52 kg, 154.94 cm) ED Course: 07:48 Patient arrived in ED. as 07:48 Jose A Chatman MD is Attending Physician. kdr 07:50 Rusty Maya, JEFF is Primary Nurse. bp 07:51 Arm band placed on Patient placed in an exam room, on a stretcher. ll1 07:52 Triage completed. ll1 07:53 EKG completed in triage. Results shown to MD. ww 08:04 Patient has correct armband on for positive identification. Placed in gown. Bed in low bp position. Call light in reach. Side rails up X2. social work case manager on. Pulse ox on. NIBP on. 08:04 Inserted saline lock: 20 gauge in right antecubital area, using aseptic technique. bp Blood collected. 08:17 XRAY Chest (1 view) In Process Unspecified. EDMS 08:22 CT Head Brain wo Cont In Process Unspecified. EDMS 10:28 No provider procedures requiring assistance completed. IV discontinued, intact, bp bleeding controlled, No redness/swelling at site. Pressure dressing applied. Patient maintains SpO2 saturation greater than 95% on room air. Administered Medications: No medications were administered Outcome: 10:28 AMA AMA form signed bp 10:28 Condition: stable 10:29 Patient left the ED. bp Signatures: Dispatcher [employer] EDMS Jose A Chatman MD MD kdr Martinez, Amelia as Peltier, Brian, JEFF RN Nica Zamudio RN RN ll1 Katie Desir RN RN ww
[2021-07-23 10:38] VITALS: TEMP 98.1
[2021-07-23 10:41] VITALS: BP 110/67; O2SAT 99
--- NOTE | 2021-07-24 10:21 | EKG ---
Test Date: 2021-07-23 Test Time: 07:59:32 Cat Cracker Operator: SHERLY MEASUREMENT RESULTS: Intervals: Rate: 90 ND: 144 QRSD: 80 QT: 376 QTc: 459 [place]: P: 47 ND: 144 QRS: 22 T: 18 INTERPRETIVE STATEMENTS: Normal sinus rhythm with sinus arrhythmia Normal ECG Compared to ECG 07/20/2020 23:59:38 No significant changes Electronically Signed On 07-24-21 10:19:40 [employer] by Cristobal Jackson
== END 2021-07-23 10:29 | disposition left against medical advice (07) ==
LOC: ER 07:47
DX: R07.9 Chest pain, unspecified (principal); H53.2 Diplopia; Z86.73 Personal history of transient ischemic attack (TIA), and cerebral infarction without residual deficits; I10 Essential (primary) hypertension
CPT/HCPCS: 36415; 70450; 71045; 80048; 80076; 82947; 83735; 83880; 84484; 85025; 85610; 93005; 99285

== ENCOUNTER 2021-07-31 14:29 | Emergency (ER) | payer SELFPAY ==
--- NOTE | 2021-07-31 18:42 | ER ---
Nurse's Notes [facility] Name: Georgia Viera Age: 35 yrs Sex: Female : 1985 Arrival Date: 07/31/2021 Time: 14:30 Bed Waiting Private MD: Diagnosis: Presentation: 07/31 14:34 Chief complaint: Patient states: Dizziness that is worse when repositioning that began ss 1 week ago. Coronavirus screen: Client denies travel out of the [place] in the last 14 days. Ebola Screen: Patient denies exposure to infectious person. Patient denies travel to an Ebola-affected area in the 21 days before illness onset. Initial Sepsis Screen: Does the patient meet any 2 criteria? No. Patient's initial sepsis screen is negative. Does the patient have a suspected source of infection? No. Patient's initial sepsis screen is negative. Risk Assessment: Do you want to hurt yourself or someone else? Patient reports no desire to harm self or others. Onset of symptoms was July 24, 2021. 14:34 Method Of Arrival: Ambulatory ss 14:34 Acuity: MILI 3 ss Historical: - Allergies: 14:36 No Known Allergies; ss - PMHx: 14:36 ADD/ADHD; Anxiety; CVA; Depression; Hypertension; ss - Immunization history:: Client reports receiving the 2nd dose of the Covid vaccine. - Social history:: Smoking status: Patient denies any tobacco usage or history of. Vital Signs: 14:34 BP 120 / 95; Pulse 113; Resp 16; Temp 98.3(TE); Pulse Ox 100% on R/A; Weight 96.62 kg; ss Height 5 ft. 1 in. (154.94 cm); Pain 0/10; 14:34 Body Mass Index 40.25 (96.62 kg, 154.94 cm) ED Course: 14:30 Patient arrived in ED. ds1 14:36 Triage completed. ss 14:36 Arm band placed on right wrist. ss 18:41 Berto Patel PA is Attending Physician. ss Administered Medications: No medications were administered Outcome: 18:41 Patient left the ED. Signatures: Jen Gallardo ds1 Itzel English RN RN ss
[2021-07-31 18:47] VITALS: BP 120/95; TEMP 98.3; O2SAT 100
== END 2021-07-31 18:41 | disposition left against medical advice (07) ==
LOC: ER 14:29
DX: Z53.21 Procedure and treatment not carried out due to patient leaving prior to being seen by health care provider (principal)
CPT/HCPCS: 99281

== ENCOUNTER 2021-08-01 14:05 | Emergency (ER) | payer SELFPAY ==
--- NOTE | 2021-08-01 15:35 | RAD REPORT ---
EXAM DESCRIPTION: CT - Head Brain Wo Cont - 08/01/2021 3:23 pm CLINICAL HISTORY: Dizziness;Visual disturbances COMPARISON: <Comparisons> TECHNIQUE: All CT scans are performed using dose optimization technique as appropriate and may inclu de automated exposure control or mA/KV adjustment according to patient size. FINDINGS: No intracranial hemorrhage, hydrocephalus or extra-axial fluid collection.No areas of brai n edema or evidence of midline shift. Mucous retention cyst in the right maxillary sinus The calvarium is intact. IMPRESSION: No acute intracranial abnormality.
--- NOTE | 2021-08-01 15:43 | ER ---
Nurse's Notes [facility] Name: Georgia Viera Age: 35 yrs Sex: Female : 1985 Arrival Date: 08/01/2021 Time: 14:06 Bed 20 Private MD: Germain Bermeo T Diagnosis: Headache Presentation: 08/01 14:29 Chief complaint: Patient states: I have been dizzy for the past 5-10 days. Last ld1 Tuesday I lost my vision. Pt reports stroke in 2019. Denies headache at this time, no pain. Reports coming to ER recently, had to leave prior to receiving CT results and lab work. Coronavirus screen: At this time, the client does not indicate any symptoms associated with coronavirus-19. Ebola Screen: No symptoms or risks identified at this time. Initial Sepsis Screen: Does the patient meet any 2 criteria? No. Patient's initial sepsis screen is negative. Does the patient have a suspected source of infection? No. Patient's initial sepsis screen is negative. Risk Assessment: Do you want to hurt yourself or someone else? Patient reports no desire to harm self or others. Onset of symptoms was August 01, 2021. 14:29 Method Of Arrival: Ambulatory ld1 14:29 Acuity: MILI 3 ld1 Triage Assessment: 14:31 Headache History: Other No headache at this time. General: Appears in no apparent ld1 distress. comfortable, Behavior is calm, cooperative, appropriate for age. Pain: Denies pain. Neuro: Level of Consciousness is awake, alert, obeys commands, Oriented to person, place, time, situation, Reports dizziness, Vision loss on Tuesday07/25/2021. Respiratory: Airway is patent Respiratory effort is even, unlabored, Respiratory pattern is regular, symmetrical. LOGISTICS COORDINATOR: 14:31 LMP 07/15/2021 ld1 Historical: - Home Meds: 14:31 aspirin 81 mg Oral chew 1 tab once daily [Active]; Klonopin Oral [Active]; Clonazepam ld1 Oral [Active]; - PMHx: 14:31 ADD/ADHD; Anxiety; CVA; Depression; Hypertension; ld1 - PSHx: 14:31 None; ld1 - Immunization history:: Adult Immunizations up to date, Client reports receiving the 2nd dose of the Covid vaccine. - Social history:: Smoking status: Patient denies any tobacco usage or history of. Patient/guardian denies using alcohol. - Family history:: not pertinent. Screenin:45 Abuse screen: Denies threats or abuse. Denies injuries from another. Nutritional bp screening: No deficits noted. Tuberculosis screening: No symptoms or risk factors identified. Fall Risk None identified. Assessment: 14:45 General: SEE TRIAGE NOTE. bp 15:30 Reassessment: No changes from previously documented assessment. Patient and/or family bp updated on plan of care and expected duration. Pain level reassessed. Pain: Denies pain. 16:13 Reassessment: PT D/C HOME AMBULATORY, DX WITH HEADACHE. bp Vital Signs: 14:29 BP 118 / 92; Pulse 90; Resp 18; Temp 98.9(O); Pulse Ox 100% on R/A; Weight 96.62 kg; ld1 Height 5 ft. 1 in. (154.94 cm); Pain 0/10; 15:30 BP 127 / 77; Pulse 72; Resp 16; Pulse Ox 99% ; bp 16:14 BP 110 / 77; Pulse 88; Resp 17; Pulse Ox 98% ; bp 14:29 Body Mass Index 40.25 (96.62 kg, 154.94 cm) ld1 ED Course: 14:06 Patient arrived in ED. am2 14:06 Germain Bermeo MD is Private Physician. am2 14:31 Triage completed. ld1 14:31 Arm band placed on right wrist. ld1 14:45 Patient has correct armband on for positive identification. Bed in low position. Call bp light in reach. Side rails up X2. 14:50 Rusty Maya, JEFF is Primary Nurse. bp 14:51 Neena De La Garza MD is Attending Physician. ma2 15:23 CT Head Brain wo Cont In Process Unspecified. EDMS 15:43 Raj Zamora MD is Referral Physician. ma2 16:15 No provider procedures requiring assistance completed. Patient did not have IV access bp during this emergency room visit. Administered Medications: 16:00 Drug: Reglan (metoCLOPramide) 10 mg Route: PO; bp 16:13 Follow up: Response: No adverse reaction bp Outcome: 15:43 Discharge ordered by . ma2 16:15 Discharged to home ambulatory. bp 16:15 Condition: stable 16:15 Discharge instructions given to patient, Instructed on discharge instructions, follow up and referral plans. medication usage, Demonstrated understanding of instructions, follow-up care, medications, Prescriptions given X 2. 16:15 Patient left the ED. bp Signatures: Dispatcher [employer] EDMS Chel Cheek am2 Rusty Maya, RN RN bp Neena De La Garza MD MD ga2 Kailey Alfaro RN RN ld1 Corrections: (The following items were deleted from the chart) 14:34 14:29 Chief complaint: Patient states: I have been dizzy for the past w 5-10 days. Last ld1 Tuesday I lost my vision. Pt reports stroke in 2019. Denies headache at this time, no pain. Reports coming to ER recently, had to leave prior to receiving CT results and lab work. ld1
--- NOTE | 2021-08-01 15:43 | EDPHYS ---
Physician Documentation [facility] Name: Georgia Viera Age: 35 yrs Sex: Female : 1985 Arrival Date: 08/01/2021 Time: 14:06 Bed 20 Private MD: Germain Bermeo T ED Physician Neena De La Garza HPI: 08/01 15:41 This 35 yrs old Female presents to ER via Ambulatory with complaints of ma2 Dizziness, Headache. 15:41 The patient presents with dizziness, feeling faint. Onset: The symptoms/episode ma2 began/occurred gradually, 3 month(s) ago. Associated signs and symptoms: Pertinent negatives: blurred vision, confusion, headache, palpitations, , syncope. Severity of symptoms: At their worst the symptoms were mild in the emergency department the symptoms are unchanged. The patient has not experienced similar symptoms in the past. Patient with constant headache for 2 months, she takes clonazepam for anxiety, she states that symptoms has not changed.. 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 - Social history:: Smoking status: Patient denies any tobacco usage or history of. Patient/guardian denies using alcohol. - Family history:: not pertinent. ROS: 15:41 Constitutional: Negative for fever, chills, and weight loss. ma2 15:41 All other systems are negative. Exam: 15:41 Constitutional: This is a well developed, well nourished patient who is awake, alert, ma2 and in no acute distress. Head/Face: Normocephalic, atraumatic. Eyes: Pupils equal round and reactive to light, extra-ocular motions intact. Lids and lashes normal. Conjunctiva and sclera are non-icteric and not injected. Cornea within normal limits. Periorbital areas with no swelling, redness, or edema. ENT: Nares patent. No nasal discharge, no septal abnormalities noted. Tympanic membranes are normal and external auditory canals are clear. Oropharynx with no redness, swelling, or masses, exudates, or evidence of obstruction, uvula midline. Mucous membranes moist. Neck: Trachea midline, no thyromegaly or masses palpated, and no cervical lymphadenopathy. Supple, full range of motion without nuchal rigidity, or vertebral point tenderness. No Meningismus. Chest/axilla: Normal chest wall appearance and motion. Nontender with no deformity. No lesions are appreciated. Cardiovascular: Regular rate and rhythm with a normal S1 and S2. No gallops, murmurs, or rubs. Normal PMI, no JVD. No pulse deficits. Respiratory: Lungs have equal breath sounds bilaterally, clear to auscultation and percussion. No rales, rhonchi or wheezes noted. No increased work of breathing, no retractions or nasal flaring. Abdomen/GI: Soft, non-tender, with normal bowel sounds. No distension or tympany. No guarding or rebound. No evidence of tenderness throughout. Skin: Warm, dry with normal turgor. Normal color with no rashes, no lesions, and no evidence of cellulitis. MS/ Extremity: Pulses equal, no cyanosis. Neurovascular intact. Full, normal range of motion. Neuro: Awake and alert, GCS 15, oriented to person, place, time, and situation. Cranial nerves II-XII grossly intact. Motor strength 5/5 in all extremities. Sensory grossly intact. Cerebellar exam normal. Normal gait. Vital Signs: 14:29 BP 118 / 92; Pulse 90; Resp 18; Temp 98.9(O); Pulse Ox 100% on R/A; Weight 96.62 kg; ld1 Height 5 ft. 1 in. (154.94 cm); Pain 0/10; 15:30 BP 127 / 77; Pulse 72; Resp 16; Pulse Ox 99% ; bp 16:14 BP 110 / 77; Pulse 88; Resp 17; Pulse Ox 98% ; bp 14:29 Body Mass Index 40.25 (96.62 kg, 154.94 cm) ld1 MDM: 14:51 Patient medically screened. ma2 15:41 Differential diagnosis: head injury, hypovolemia, near-syncope, sepsis, vertigo. ma2 Differential diagnosis:. Data reviewed: vital signs, nurses notes. Counseling: I had a detailed discussion with the patient and/or guardian regarding: the historical points, exam findings, and any diagnostic results supporting the discharge/admit diagnosis, the presence of at least one elevated blood pressure reading (>120/80) during this emergency department visit, the need for outpatient follow up. Response to treatment: the patient's symptoms have markedly improved after treatment. 08/01 14:37 Order name: CT Head Brain wo Cont; Complete Time: 15:43 iw Administered Medications: 16:00 Drug: Reglan (metoCLOPramide) 10 mg Route: PO; bp 16:13 Follow up: Response: No adverse reaction bp Disposition Summary: 08/01/21 15:43 Discharge Ordered Location: Home ma2 Condition: Stable ma2 Diagnosis - Headache ma2 Followup: ma2 - With: Private Physician - When: Tomorrow - Reason: If symptoms return, Continuance of care Followup: ma2 - With: Raj Zamora MD - When: Tomorrow - Reason: If symptoms return, Continuance of care Discharge Instructions: - Discharge Summary Sheet ma2 - General Headache Without Cause ma2 Forms: - Medication Reconciliation Form ma2 - Thank You Letter ma2 - Antibiotic Education ma2 - Prescription Opioid Use ma2 Prescriptions: - Reglan 10 mg Oral Tablet - take 1 tablet by ORAL route every 6 hours take 30 minutes before meals and at ma2 bedtime; 20 tablet; Refills: 0, Product Selection Permitted - Diclofenac Sodium 75 mg Oral Tablet Sustained Release - take 1 tablet by ORAL route 2 times per day; 30 tablet; Refills: 0, Product ma2 Selection Permitted Signatures: Dispatcher [employer] Rusty Higuera, RN RN bp Neena De La Garza MD MD ma2 Kailey Alfaro RN RN ld1
[2021-08-01] MEDS ORDERED: METOCLOPRAMIDE 5 MG TAB ONE (16:09)
[2021-08-01 16:21] VITALS: TEMP 98.9
[2021-08-01 16:25] VITALS: BP 110/77; O2SAT 98
== END 2021-08-01 16:15 | disposition home or self-care (01) ==
LOC: ER 14:05
DX: R51.9 Headache, unspecified (principal); F41.9 Anxiety disorder, unspecified; F41.8 Other specified anxiety disorders; I10 Essential (primary) hypertension
CPT/HCPCS: 70450; 99283

== ENCOUNTER 2021-08-04 04:57 | Emergency (ER) | payer SELFPAY ==
[2021-08-04] MEDS ORDERED: MECLIZINE HCL 12.5 MG TAB ONE (07:11)
[2021-08-04 07:27] LABS: Urine Blood Trace-intact (Negative); Urine Glucose Negative (Negative); Urine Protein Negative (Negative); Urine Specific Gravity >=1.030 (1.005-1.030); Urine pH 5.5 (5.0-7.0)
[2021-08-04 07:29] LABS: Absolute Lymphocytes (CBC) 1.9 K/uL (0.7-4.9); Hematocrit 38.7 % (36.0-45.0); Lymphocytes % 26.5 % (15.3-44.8); MPV 9.8 fL (7.6-11.3); RBC Red Blood Cell Count 4.86 M/uL (3.86-4.86)
[2021-08-04 07:34] LABS: Protime INR 0.97
[2021-08-04 07:37] LABS: Potassium 3.4 mmol/L (3.5-5.1)
[2021-08-04 08:25] LABS: Anisocytosis 1+; Blood Morphology Comment NOTED (NOT SEEN); Platelet Estimate ADEQ; White Blood Cell Scan OK (OK)
--- NOTE | 2021-08-04 08:43 | RAD REPORT ---
EXAM DESCRIPTION: CT - Head Brain Wo Cont - 08/04/2021 7:42 am CLINICAL HISTORY: DIZZINESS Headache, drowsiness, dizziness COMPARISON: Head Brain Wo Cont dated 08/01/2021; Head Brain Wo Cont dated 07/23/2021 TECHNIQUE: All CT scans are performed using dose optimization technique as appropriate and may inclu de automated exposure control or mA/KV adjustment according to patient size. FINDINGS: No intracranial hemorrhage, hydrocephalus or extra-axial fluid collection.Mild brain atrop hy is seen.No areas of brain edema or evidence of midline shift. Mild polypoid thickening of the maxillary antra. The paranasal sinuses and mastoids are otherwise kacey ar. The calvarium is intact. IMPRESSION: No acute intracranial abnormality.
--- NOTE | 2021-08-04 09:18 | EDPHYS ---
Physician Documentation [facility] Name: Georgia Viera Age: 35 yrs Sex: Female : 1985 Arrival Date: 08/04/2021 Time: 05:00 Bed 12 Private MD: ED Physician Antoni Meek HPI: 08/04 06:50 This 35 yrs old Female presents to ER via Ambulatory with complaints of pm1 Blurred Vision, Dizziness. 06:50 The patient's problem is reported as dizziness and blurry vision for the 3 weeks. pm1 Duration: The episode is continuous, resolves with lying down. Worsened with changes in position and moving head. The symptoms are alleviated by laying, The symptoms are aggravated by moving head, changing position. Associated signs and symptoms: Pertinent negatives: numbness, tingling, weakness, double vision, chest pain, shortness of breath. Severity of symptoms: in the emergency department the symptoms are unchanged Pain is currently a 0 / 10. Patient's baseline: Neuro: alert and fully oriented, Motor: no deficits, Ambulation: walks without assistance, Speech: normal, The patient has a previous history of CVA, 2019. The patient has not experienced similar symptoms in the past. The patient has been recently seen at the [facility] Emergency Department, for similar complaints CT scan was performed, 08/01/2021. Patient presents to the ER with complaints of blurry vision and dizziness for 3 weeks. Patient is requesting MRI to rule out CVA. 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 - Social history:: Smoking status: Patient denies any tobacco usage or history of. ROS: 06:50 Constitutional: Negative for fever, chills, and weight loss, Cardiovascular: Negative pm1 for chest pain, palpitations, and edema, Respiratory: Negative for shortness of breath, cough, wheezing, and pleuritic chest pain, Abdomen/GI: Negative for abdominal pain, nausea, vomiting, diarrhea, and constipation, Back: Negative for injury and pain, MS/Extremity: Negative for injury and deformity, Skin: Negative for injury, rash, and discoloration. 06:50 Eyes: Positive for blurry vision, Negative for double vision. 06:50 Neuro: Positive for dizziness, Negative for headache, numbness, tingling, weakness. 06:50 All other systems are negative. Exam: 06:50 Constitutional: This is a well developed, well nourished patient who is awake, alert, pm1 and in no acute distress. Head/Face: Normocephalic, atraumatic. 06:50 Back: No spinal tenderness. No costovertebral tenderness. Full range of motion. Skin: Warm, dry with normal turgor. Normal color with no rashes, no lesions, and no evidence of cellulitis. MS/ Extremity: Pulses equal, no cyanosis. Neurovascular intact. Full, normal range of motion. 06:50 Eyes: Pupils: no acute changes, normal size, normal reaction to light, Extraocular movements: intact throughout, Conjunctiva: no acute changes, no injection, Sclera: no acute changes, icterus, is not appreciated, Nystagmus: present when gazing rightwards. 06:50 Cardiovascular: Exam negative for acute changes, Rate: normal, Rhythm: regular, Pulses: no pulse deficits are appreciated, Heart sounds: normal, Edema: is not appreciated. 06:50 Respiratory: Exam negative for acute changes, respiratory distress, shortness of breath, Breath sounds: are clear throughout. 06:50 Abdomen/GI: Inspection: abdomen appears normal, Palpation: abdomen is soft and non-tender, in all quadrants. 06:50 Neuro: Exam negative for acute changes, Orientation: is normal, Mentation: is normal, Memory: is normal, Cranial nerves: CN II- XII are normal as tested, Cerebellar function: no acute changes, Motor: moves all fours, strength is 5/5 in all extremities, Sensation: no obvious gross deficits. 09:00 Radiologist reports: CT head no acute findings pm1 Vital Signs: 06:06 BP 137 / 88; Pulse 88; Resp 16 S; Temp 98.8(O); Pulse Ox 97% on R/A; Weight 102.06 kg bb (R); Height 5 ft. 1 in. (154.94 cm) (R); 07:28 BP 123 / 76; Pulse 88; Resp 17; Temp 97.6; Pulse Ox 99% ; Pain 0/10; jh6 09:00 BP 118 / 72; Pulse 80; Resp 17; Temp 97.8(O); Pulse Ox 100% ; jh6 06:06 Body Mass Index 42.51 (102.06 kg, 154.94 cm) bb Visual Acuity: 06:11 Left Eye Visual acuity 20/25, Pupil size 6 mm, ; Right Eye Visual acuity 20/25, Pupil bb size 6 mm, ; Both Eyes Visual acuity 20/20; Without Lenses; MDM: 06:28 Patient medically screened. pm1 09:12 ED course: Symptoms completely resolved with meclizine. Patient offered MRI study that pm1 she initially requested and she refused the MRI since meclizine resolved her symptoms. Explained to the patient I would still like her to get a MRI despite refusing it here in the ER. 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 09:15 Data reviewed: vital signs. Data interpreted: Pulse oximetry: on room air is 99 %. pm1 Interpretation: normal. 08/04 06:50 Order name: Basic Metabolic Panel; Complete Time: 07:43 pm1 08/04 06:50 Order name: CBC with Diff; Complete Time: 08:50 pm1 08/04 06:50 Order name: Protime (+inr); Complete Time: 07:43 pm1 08/04 06:50 Order name: Ptt, Activated; Complete Time: 07:43 pm1 08/04 07:27 Order name: Urine Dipstick-Ancillary EDMS 08/04 07:28 Order name: Urine --Ancillary (enter results) dh4 08/04 06:50 Order name: CT Head Brain wo Cont; Complete Time: 08:50 pm1 08/04 06:50 Order name: EKG; Complete Time: 06:50 pm1 08/04 06:50 Order name: EKG - Nurse/Tech; Complete Time: 07:19 pm1 08/04 07:28 Order name: Urine --Ancillary; Complete Time: 08:50 EDMS 08/04 07:35 Order name: CBC Smear Scan; Complete Time: 08:50 EDMS 08/04 08:51 Order name: Urine Culture pm1 08/04 06:50 Order name: IV Saline Lock; Complete Time: 07:19 pm1 08/04 06:50 Order name: Labs collected and sent; Complete Time: 07:19 pm1 08/04 06:50 Order name: Urine Dipstick-Ancillary (obtain specimen); Complete Time: 07:19 pm1 08/04 06:50 Order name: Urine Test (obtain specimen); Complete Time: 07:19 pm1 Administered Medications: 07:21 Drug: Meclizine 50 mg Route: PO; [facility] 09:54 Follow up: Response: Other [facility] 09:23 Drug: Rocephin (cefTRIAXone) 1 grams Route: IV; Rate: calculated rate; Site: right [facility] antecubital; 09:53 Follow up: Response: No adverse reaction [facility] Disposition Summary: 08/04/21 09:17 Discharge Ordered Location: Home pm1 Problem: new pm1 Symptoms: have improved pm1 Condition: Stable pm1 Diagnosis - Dizziness and giddiness pm1 - Benign paroxysmal vertigo pm1 - UTI/ Urinary tract infection, site not specified pm1 Followup: pm1 - With: Emergency Department - When: As needed - Reason: Worsening of condition Followup: pm1 - With: Private Physician - When: 2 - 3 days - Reason: Recheck today's complaints, Continuance of care, Re-evaluation by your physician Discharge Instructions: - Discharge Summary Sheet pm1 - Benign Positional Vertigo pm1 - Dizziness pm1 - Urinary Tract Infection, Adult pm1 - Vertigo pm1 Forms: - Medication Reconciliation Form pm1 - Thank You Letter pm1 - Antibiotic Education pm1 - Prescription Opioid Use pm1 Prescriptions: - Meclizine 25 mg Oral Tablet - take 1 tablet by ORAL route every 8 hours As needed; 30 tablet; Refills: 0, pm1 Product Selection Permitted - Bactrim DS 800-160 mg Oral Tablet - take 1 tablet by ORAL route every 12 hours for 10 days; 20 tablet; Refills: 0, pm1 Product Selection Permitted Addendum: 08/05/2021 19:04 Co-signature as Attending Physician, Antoni waller Signatures: Dispatcher [employer] Antoni Felix MD MD pkl Ballard, Brenda, RN RN bb Tiago Ross, LAST REMODELER REPAIRER LAST REMODELER REPAIRER pm1 Unique Lo, RN RN jh6
--- NOTE | 2021-08-04 09:18 | ER ---
Nurse's Notes [facility] Name: Georgia Viera Age: 35 yrs Sex: Female : 1985 Arrival Date: 08/04/2021 Time: 05:00 Bed 12 Private MD: Diagnosis: Dizziness and giddiness;Benign paroxysmal vertigo;UTI/ Urinary tract infection, site not specified Presentation: 08/04 06:06 Chief complaint: Patient states: she has been having blurred vision and dizziness for 3 bb weeks was seen here last week and had a CT with no results pt has had a CVA in 2019 and wants an MRI. Coronavirus screen: At this time, the client does not indicate any symptoms associated with coronavirus-19. Ebola Screen: No symptoms or risks identified at this time. Initial Sepsis Screen: Does the patient meet any 2 criteria? No. Patient's initial sepsis screen is negative. Does the patient have a suspected source of infection? No. Patient's initial sepsis screen is negative. Risk Assessment: Do you want to hurt yourself or someone else? Patient reports no desire to harm self or others. Onset of symptoms is unknown. 06:06 Method Of Arrival: Ambulatory bb 06:06 Acuity: MILI 3 bb Triage Assessment: 06:08 General: Appears in no apparent distress. Behavior is calm, cooperative. Pain: Denies bb pain. EENT: Reports blurred vision. Neuro: Level of Consciousness is awake, alert, obeys commands, Oriented to person, place, time, situation. Cardiovascular: Capillary refill < 3 seconds Patient's skin is warm and dry. Respiratory: Respiratory effort is unlabored. GI: No signs and/or symptoms were reported involving the gastrointestinal system. Derm: Skin is pink, warm \T\ dry. Musculoskeletal: Circulation, motion, and sensation intact. 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 - Social history:: Smoking status: Patient denies any tobacco usage or history of. Screenin:13 Abuse screen: Denies threats or abuse. Nutritional screening: No deficits noted. bb Tuberculosis screening: No symptoms or risk factors identified. Fall Risk None identified. Assessment: 06:13 Reassessment: No changes from previously documented assessment. Patient is alert, bb oriented x 3, equal unlabored respirations, skin warm/dry/pink. see triage assessment. 07:15 Reassessment: No changes from previously documented assessment. 6 09:56 Reassessment: Patient is alert, oriented x 3, equal unlabored respirations, skin jh6 warm/dry/pink. Patient states feeling better. Patient states symptoms have improved. Pain: Denies pain. Neuro: No deficits noted. Vital Signs: 06:06 BP 137 / 88; Pulse 88; Resp 16 S; Temp 98.8(O); Pulse Ox 97% on R/A; Weight 102.06 kg bb (R); Height 5 ft. 1 in. (154.94 cm) (R); 07:28 BP 123 / 76; Pulse 88; Resp 17; Temp 97.6; Pulse Ox 99% ; Pain 0/10; 6 09:00 BP 118 / 72; Pulse 80; Resp 17; Temp 97.8(O); Pulse Ox 100% ; 6 06:06 Body Mass Index 42.51 (102.06 kg, 154.94 cm) Visual Acuity: 06:11 Left Eye Visual acuity 20/25, Pupil size 6 mm, ; Right Eye Visual acuity 20/25, Pupil bb size 6 mm, ; Both Eyes Visual acuity 20/20; Without Lenses; ED Course: 05:00 Patient arrived in ED. 06:08 Triage completed. 06:08 Arm band placed on Patient placed in an exam room, on a stretcher. 06:13 Patient has correct armband on for positive identification. Bed in low position. Call bb light in reach. 06:27 Tiago Ross NP is PHCP. pm1 06:27 Antoni Meek MD is Attending Physician. pm1 07:04 Unique Lo, JEFF is Primary Nurse. 6 07:19 Basic Metabolic Panel Sent. 5 07:19 CBC with Diff Sent. 5 07:19 Protime (+inr) Sent. 5 07:19 Ptt, Activated Sent. 5 07:20 Initial lab(s) drawn, by fl, sent to lab. Urine collected: clean catch specimen, clear, 5 EKG done, by ED staff, reviewed by Jose A Chatman MD. Inserted saline lock: 20 gauge in right antecubital area, using aseptic technique. Blood collected. 07:23 Warm blanket given. surface supervisor on. Pulse ox on. NIBP on. 5 07:27 Awaiting lab results, Awaiting for x-ray. 6 07:28 Inserted. jh6 07:38 X-ray(s) taken. 6 07:42 CT Head Brain wo Cont In Process Unspecified. EDMS 09:55 No provider procedures requiring assistance completed. IV discontinued, intact, 6 bleeding controlled, No redness/swelling at site. Pressure dressing applied. Administered Medications: 07:21 Drug: Meclizine 50 mg Route: PO; [facility] 09:54 Follow up: Response: Other [facility] 09:23 Drug: Rocephin (cefTRIAXone) 1 grams Route: IV; Rate: calculated rate; Site: right [facility] antecubital; 09:53 Follow up: Response: No adverse reaction [facility] Outcome: 09:17 Discharge ordered by . pm1 09:55 Discharged to home ambulatory. [facility] 09:55 Condition: good 09:55 Discharge instructions given to patient, Instructed on discharge instructions, follow up and referral plans. Demonstrated understanding of instructions, follow-up care, medications, Prescriptions given X 2. 09:56 Patient left the ED. [facility] Signatures: Dispatcher [employer] EDMS Madalyn Bond, RN RN Tiago Boggs, MARIFER NURSES SUPERVISOR pm1 Michelle Mas Casie Up Jennifer, RN RN 6
[2021-08-04] MEDS ORDERED: CEFTRIAXONE 1000 MG/VIAL ONE (09:19)
[2021-08-04 10:07] VITALS: BP 118/72; TEMP 97.8; O2SAT 100
== END 2021-08-04 09:56 | disposition home or self-care (01) ==
LOC: ER 04:57
DX: H81.10 Benign paroxysmal vertigo, unspecified ear (principal); N39.0 Urinary tract infection, site not specified; I10 Essential (primary) hypertension; Z79.82 Long term (current) use of aspirin
CPT/HCPCS: 36415; 70450; 80048; 81003; 81025; 85025; 85610; 85730; 87086; 87088; 93005; 96374; 99285; J8597

== ENCOUNTER 2024-01-15 18:21 | Inpatient (IN) | payer OTHER ==
--- NOTE | 2024-01-15 19:12 | RAD REPORT ---
EXAM DESCRIPTION: CT - Head Brain Wo Cont - 01/15/2024 7:00 pm CLINICAL HISTORY: SLURRED SPEECH COMPARISON: Head Brain Wo Cont dated 08/04/2021; Head Brain Wo Cont dated 08/01/2021 TECHNIQUE: All CT scans are performed using dose optimization technique as appropriate and may inclu de automated exposure control or mA/KV adjustment according to patient size. FINDINGS: No intracranial hemorrhage, hydrocephalus or extra-axial fluid collection.No areas of brai n edema or evidence of midline shift. Mild chronic small vessel ischemic changes. The paranasal sinuses and mastoids are clear. The calvarium is intact. IMPRESSION: No acute intracranial abnormality.
[2024-01-15 19:13] LABS: Absolute Basophils 0.1 K/uL (0-0.5); Absolute Eosinophils 0.1 K/uL (0-0.5); Absolute Lymphocytes (CBC) 1.8 K/uL (0.7-4.9); Absolute Monocytes 0.5 K/uL (0.1-1.3); Absolute Neutrophil 5.8 K/uL (1.8-8.0); Basophils % 0.7 % (0-1.3); Hematocrit 38.8 % (36.0-45.0); Hemoglobin 12.7 g/dL (12.0-15.0); Lymphocytes % 21.8 % (15.3-44.8); MCH 27.1 pg (27.0-35.0); MCHC 32.7 g/dL (32.0-36.0); MCV 82.8 fL (80-100); MPV 9.7 fL (7.6-11.3); Monocytes % 5.8 % (3.3-12.3); Neutrophils % 70.7 % (41.7-73.7); Nucleated Red Blood Cells % 0.1 % (0-0); PT Prothrombin Time 11.7 SECONDS (9.5-12.5); PTT, Activated Partial Thromb 30.4 SECONDS (24.3-36.9); Platelets 210 thou/uL (152-406); Protime INR 1.07; RBC Red Blood Cell Count 4.69 M/uL (3.86-4.86); Red Cell Distribution Width 16.3 % (12.1-15.2)
--- NOTE | 2024-01-15 19:18 | RAD REPORT ---
EXAM DESCRIPTION: RAD - Chest Single View - 01/15/2024 7:13 pm CLINICAL HISTORY: PAIN COMPARISON: Chest Single View dated 07/23/2021; Chest Single View dated 07/21/2020; Chest Single Vie w dated 07/11/2020; Chest Single View dated 12/14/2019 FINDINGS: Lines: None. Lungs: No evidence of edema or pneumonia. Pleural: No significant pleural effusions or pneumothorax. Cardiac: The heart size is within normal limits. Mediastinum: Within normal limits. Bones: No acute fractures. Other: None IMPRESSION: No acute cardiopulmonary disease.
[2024-01-15 19:23] LABS: ALT/SGPT 59 U/L (13-56); AST/SGOT 27 U/L (15-37); Albumin 3.3 g/dL (3.4-5.0); Alkaline Phosphatase 70 U/L (45-117); Anion Gap 7.5 mEq/L (5.0-15.0); BUN Blood Urea Nitrogen 8 mg/dL (7-18); Bicarbonate 23 mEq/L (21-32); Bilirubin Total 0.2 mg/dL (0.2-1.0); Globulin 3.2 g/dL (2.3-3.5); Glomerular Filtration Rate 115 ml/min (=/>90); Glucose Level 123 mg/dL (74-106); Magnesium 2.3 mg/dL (1.6-2.4); Potassium 3.5 mEq/L (3.5-5.1); Protein, Total 6.5 g/dL (6.4-8.2); Sodium Level 138 mEq/L (136-145)
[2024-01-15 19:25] LABS: Bilirubin Direct < 0.2 mg/dL (0-0.2); Troponin High Sensitivity < 3.0 pg/mL (<58.9)
--- NOTE | 2024-01-15 20:35 | RAD REPORT ---
EXAM DESCRIPTION: CT - Head angio - 01/15/2024 8:27 pm CLINICAL HISTORY: SLURRED SPEECH COMPARISON: Head Brain Wo Cont dated 01/15/2024; Head Brain Wo Cont dated 08/04/2021 TECHNIQUE: CT angiography of the head was performed with maximum intensity reformatted images. 3D ma ximum intensity pixel (MIP) reconstructions were created All CT scans are performed using dose optimization technique as appropriate and may include automated exposure control or mA/KV adjustment according to patient size. FINDINGS: Anterior circulation: No aneurysm or large vessel occlusion. No hemodynamically significant stenosis. No arteriovenous malf ormation identified. Coastal thickening left sphenoid sinus. Posterior circulation: No aneurysm or large vessel occlusion. No hemodynamically significant stenosis. No arteriovenous malf ormation identified. IMPRESSION: No significant flow abnormality is detected.
--- NOTE | 2024-01-15 20:37 | RAD REPORT ---
EXAM DESCRIPTION: CT - Neck Angio - 01/15/2024 8:27 pm CLINICAL HISTORY: slurred speech, facial droop COMPARISON: No comparisons TECHNIQUE: CT angiography of the neck vessels was performed with maximum intensity reformatted image s. CAROTID STENOSIS REFERENCE USING NASCET CRITERIA: Mild - <50% stenosis. Moderate - 50-69% stenosis. Severe - 70-94% stenosis. Near occlusion - 95-99% stenosis. Occluded - 100% stenosis. All CT scans are performed using dose optimization technique as appropriate and may include automated exposure control or mA/KV adjustment according to patient size. FINDINGS: A left aortic arch is identified with normal three vessel configuration of the great vesse ls. No significant flow abnormality is seen of the common carotid bilaterally. No significant stenosis is identified involving the cervical segments of both internal carotid arteri es. Normal flow is seen within both vertebral arteries. IMPRESSION: No significant flow abnormality of the neck vessels is identified.
--- NOTE | 2024-01-15 21:06 | ER ---
Nurse's Notes [facility] Name: Georgia Viera Age: 38 yrs Sex: Female : 1985 Arrival Date: 01/15/2024 Time: 18:21 Bed 6 Private MD: Diagnosis: Weakness;Slurred speech;Facial droop Presentation: 01/14 18:28 Chief complaint: Patient states: she fell this AM while in the shower. states she has a kc6 hx of prior stroke and noticed slurred speech a week ago and left facial droop today but can't recall LKW. mom at bedside states she noticed left eye and facial droop yesterday around 11am or 12pm. Coronavirus screen: At this time, the client does not indicate any symptoms associated with coronavirus-19. Ebola Screen: No symptoms or risks identified at this time. No acute neurological deficit is noted. Pre-hospital glucose is not applicable to this patient. Initial Sepsis Screen: Does the patient meet any 2 criteria? No. Patient's initial sepsis screen is negative. Does the patient have a suspected source of infection? No. Patient's initial sepsis screen is negative. Risk Assessment: Do you want to hurt yourself or someone else? Patient reports no desire to harm self or others. Onset of symptoms was January 14, 2024 at 11:00. 18:28 Method Of Arrival: Wheelchair kc6 18:28 Acuity: MILI 2 kc6 Triage Assessment: 18:32 The onset of the patients symptoms was January 14, 2024 at 11:00. General: Appears in no kc6 apparent distress. comfortable, well groomed, well developed, Behavior is calm, cooperative, appropriate for age. Pain: Complains of pain in right leg. EENT: No signs and/or symptoms were reported regarding the EENT system. Neuro: Level of Consciousness is awake, alert, obeys commands, Oriented to person, place, time, situation, Appropriate for age Well Driller Helper are equal bilaterally Moves all extremities. Full function Gait is steady, Speech is slurred, Facial droop on left, Facial symmetry: tongue is midline, Pupils are PERRLA, Intact Babinski is positive Reports dizziness, weakness. Cardiovascular: Capillary refill < 3 seconds. Respiratory: Airway is patent Trachea midline Respiratory effort is even, unlabored, Respiratory pattern is regular, symmetrical. GI: No signs and/or symptoms were reported involving the gastrointestinal system. : No signs and/or symptoms were reported regarding the genitourinary system. Derm: No signs and/or symptoms reported regarding the dermatologic system. Skin is intact, is healthy with good turgor, Skin is pink, warm \T\ dry. Musculoskeletal: No signs and/or symptoms reported regarding the musculoskeletal system. Circulation, motion, and sensation intact. Capillary refill < 3 seconds, Range of motion: intact in all extremities. DATA MANAGEMENT ENGINEER: 23:20 LMP 2023, unknown ha1 Stroke Activation: Symptom onset > 6 hours Physician: ED Attending; Name: ; Notified At: ; Arrived At: Physician: Mid-Level Provider; Name: ; Notified At: ; Arrived At: Physician: [not used]; Name: ; Notified At: ; Arrived At: Physician: [not used]; Name: ; Notified At: ; Arrived At: Physician: [not used]; Name: ; Notified At: ; Arrived At: Historical: - Allergies: 18:32 No Known Allergies; kc6 - PMHx: 18:31 ADD/ADHD; Anxiety; CVA; Depression; Hypertension; ss - PSHx: 18:31 Ligation of fallopian tube; ss - Immunization history:: Adult Immunizations up to date. - Infectious Disease History:: Denies. - Social history:: Smoking status: Patient denies any tobacco usage or history of. Screenin:27 [facility] ED Fall Risk Assessment (Adult) History of falling in the last 3 months, kc6 including since admission Yes- single mechanical fall (1 pt) Confusion or Disorientation No (0 pts) Intoxicated or Sedated No (0 pts) Impaired Gait No (0 pts) Mobility Assist Device Used No (0 pt) Altered Elimination No (0 pt) Score/Fall Risk Level 0 - 2 = Low Risk. Abuse screen: Denies threats or abuse. Denies injuries from another. Nutritional screening: No deficits noted. Tuberculosis screening: No symptoms or risk factors identified. Assessment: 18:34 VAN Scoring: Arm Drift: Patients demonstrates NO arm weakness. Patient is VAN Negative. kc6 Visual Disturbance: No visual disturbance noted. Aphasia: No aphasia noted. Neglect: No neglect noted. Roopa Swallow Protocol Brief Cognitive Screen What is your name? Normal, Where are you right now? Normal, What year is it? Normal. Oral Mechanism Examination Facial Symmetry: Normal, Motion: Normal, Lip Closure: Normal, Oral Mechanism Result: Normal. 3 oz Water Swallow Challenge: Pt able to drink all water without stopping, coughing, choking or throat clearing: Yes Result: PASS MD Notified: Rosana AYOUB. 19:25 General: Appears comfortable, Behavior is calm, cooperative. Pain: Denies pain. Neuro: ha1 Level of Consciousness is awake, alert, obeys commands, Oriented to person, place, time, situation, Well Driller Helper are equal bilaterally Moves all extremities. Full function Gait is steady, Speech is normal, Facial droop on left, Pupils are PERRLA. Cardiovascular: Capillary refill < 3 seconds Patient's skin is warm and dry. Respiratory: Airway is patent Respiratory effort is even, unlabored, Respiratory pattern is regular, symmetrical. GI: Abdomen is round non-distended, obese. : No signs and/or symptoms were reported regarding the genitourinary system. Derm: Skin is pink, warm \T\ dry. Musculoskeletal: Circulation, motion, and sensation intact. Range of motion: intact in all extremities. 19:30 Roopa Swallow Protocol 3 oz Water Swallow Challenge: Pt able to drink all water without ha1 stopping, coughing, choking or throat clearing: Yes Result: PASS MD Notified: Rosana AYOUB. TNKase (Tenecteplase) Screening: Contraindications: Other: PAST THE TIME WINDOW. 20:30 Reassessment: Patient and/or family updated on plan of care and expected duration. Pain ha1 level reassessed. Patient is alert, oriented x 3, equal unlabored respirations, skin warm/dry/pink. 21:30 Reassessment: Patient and/or family updated on plan of care and expected duration. Pain ha1 level reassessed. Patient is alert, oriented x 3, equal unlabored respirations, skin warm/dry/pink. 22:30 Reassessment: Patient and/or family updated on plan of care and expected duration. Pain ha1 level reassessed. Patient is alert, oriented x 3, equal unlabored respirations, skin warm/dry/pink. Vital Signs: 18:27 BP 125 / 94; Pulse 91; Resp 16 S; Pulse Ox 99% on R/A; Weight 90.72 kg (M); Height 5 kc6 ft. 1 in. (R); 19:30 BP 120 / 74; Pulse 76; Resp 17 S; Pulse Ox 100% on R/A; ha1 21:00 BP 140 / 92; Pulse 71; Resp 17 S; Pulse Ox 100% on R/A; ha1 22:00 BP 128 / 73; Pulse 59; Resp 16 S; Pulse Ox 100% on R/A; ha1 22:00 BP 113 / 74; Pulse 74; Resp 16 S; Pulse Ox 100% ; ha1 23:00 BP 132 / 79; Pulse 58; Resp 16; Pulse Ox 100% on R/A; ha1 18:27 Body Mass Index 37.79 (90.72 kg, 154.94 cm) kc6 NIH Stroke Scale Scores: 18:34 NIHSS Score: 2 kc6 ED Course: 18:23 Patient arrived in ED. ss 18:24 Rosana Zelaya FNP-C is [facility]. kb 18:24 Paco Valdez MD is Attending Physician. kb 18:27 Mel Echavarria, JEFF is Primary Nurse. kc6 18:27 Patient has correct armband on for positive identification. Placed in gown. Bed in low kc6 position. Call light in reach. Side rails up X 1. Adult w/ patient. Pulse ox on. NIBP on. 18:32 Triage completed. kc6 18:32 Arm band placed on. kc6 18:56 Inserted saline lock: 20 gauge in right antecubital area, using aseptic technique. kc6 Blood collected. 19:02 CT Head Brain wo Cont In Process Unspecified. EDMS 19:15 Chest Single View XRAY In Process Unspecified. EDMS 20:27 Attending Physician role handed off by Paco Valdez MD rn 20:27 Krystian Benítez MD is Attending Physician. rn 20:29 CT Head Angio In Process Unspecified. EDMS 20:29 CT Neck Angio In Process Unspecified. EDMS 21:04 Julio Staley MD is Hospitalizing Provider. kb 23:19 No provider procedures requiring assistance completed. ha1 23:20 Provided Education on: NEED FOR ADMIT . ha1 23:20 Patient admitted, IV remains in place. ha1 Administered Medications: No medications were administered Medication: 19:34 VIS not applicable for this client. ha1 Outcome: 21:05 Decision to Hospitalize by Provider. kb 23:19 Admitted to Med/surg accompanied by tech, via wheelchair, room 219, with chart, ha1 23:19 Condition: stable 23:19 Instructed on the need for admit, Demonstrated understanding of instructions, 23:21 Patient left the ED. ha1 NIH Stroke Scale - NIH Stroke Score Date: 01/15/2024 Time: 18:34 Total Score = 2 10. Dysarthria (speech clarity - read or repeat words) - 0(Normal) 11. Extinction and Inattention (visual/tactile/auditory/spatial/personal) - 0(No abnormality) 1a. Level of Consciousness (LOC) - 0(Alert) 1b. Level of Consciousness (LOC) (Month \T\ Age) - 0(Both) 1c. LOC Commands (Open \T\ Closes Eyes/Military Source Operations Officer) - 0(Both) 2. Best Gaze (Lateral Gaze Paresis) - 0(Normal) 3. Visual Field Loss - 0(No visual loss) 4. Facial Palsy - 1(Minor Paralysis) 5a. Left Arm: Motor (10-second hold) - 0(No drift) 5b. Right Arm: Motor (10-second hold) - 0(No drift) 6a. Left Leg: Motor (5-second hold - always test supine) - 0(No drift) 6b. Right Leg: Motor (5-second hold - always test supine) - 0(No drift) 7. Limb Ataxia (finger/nose \T\ heel/veloz - test with eyes open) - 0(Absent) 8. Sensory Loss (pinprick arms/legs/face) - 0(Normal) 9. Best Language: Aphasia (description/naming/reading) - 1(Mild to moderate aphasia) Initials: kc6 Signatures: Dispatcher [employer] EDMS Rosana Zelaya, ITALIAN TUTOR-C ITALIAN TUTOR-Ckb Krystian Benítez MD MD rn Blanchard, Shelby, RN RN ss Ayala, Heidy, RN RN 1 Mel Echavarria RN RN kc6
--- NOTE | 2024-01-15 21:06 | EDPHYS ---
Physician Documentation [facility] Name: Georgia Viera Age: 38 yrs Sex: Female : 1985 Arrival Date: 01/15/2024 Time: 18:21 Bed 6 Private MD: ED Physician Krystian Benítez HPI: 01/14 21:03 This 38 yrs old Female presents to ER via Wheelchair with complaints of Knee kb Pain, S/S of Possible Stroke. 21:03 Pt is a 38 year old female who presents for slurred speech, left facial droop and right kb leg weakness. States the leg weakness has been progressively getting worse since CVA in 2019. Reports facial droop and slurred speech were noticed by mother at lunch yesterday, but initial onset unknown. Pt states she has had a couple of falls due to leg weakness. NURSE INFECTION CONTROL: 23:20 LMP 2023, unknown ha1 Historical: - Allergies: 18:32 No Known Allergies; kc6 - PMHx: 18:31 ADD/ADHD; Anxiety; CVA; Depression; Hypertension; ss - PSHx: 18:31 Ligation of fallopian tube; ss - Immunization history:: Adult Immunizations up to date. - Infectious Disease History:: Denies. - Social history:: Smoking status: Patient denies any tobacco usage or history of. ROS: 19:55 Constitutional: As per HPI kb Exam: 19:55 Constitutional: This is a well developed, well nourished patient who is awake, alert, kb and in no acute distress. Head/Face: Normocephalic, atraumatic. Eyes: Pupils equal round and reactive to light, extra-ocular motions intact. Lids and lashes normal. Conjunctiva and sclera are non-icteric and not injected. Cornea within normal limits. Periorbital areas with no swelling, redness, or edema. ENT: Moist Mucous membranes Cardiovascular: Regular rate Respiratory: Respirations even and unlabored. No increased work of breathing. Talking in full sentences Abdomen/GI: Soft, non-tender. No distention Skin: Warm, dry with normal turgor. Normal color. 19:55 Musculoskeletal/extremity: Extremities: grossly normal except: noted in the right knee: pain, 19:55 Neuro: Orientation: is normal, Mentation: able to follow commands, Memory: is normal, Motor: moves all fours, strength is 4/5 in the right leg, 19:58 Neuro: Cranial nerves: facial droop noted on left, with forehead involved. Speech is kb clear and appropriate. 21:16 ECG was reviewed by the Attending Physician. kb Vital Signs: 18:27 BP 125 / 94; Pulse 91; Resp 16 S; Pulse Ox 99% on R/A; Weight 90.72 kg (M); Height 5 kc6 ft. 1 in. (R); 19:30 BP 120 / 74; Pulse 76; Resp 17 S; Pulse Ox 100% on R/A; ha1 21:00 BP 140 / 92; Pulse 71; Resp 17 S; Pulse Ox 100% on R/A; ha1 22:00 BP 128 / 73; Pulse 59; Resp 16 S; Pulse Ox 100% on R/A; ha1 22:00 BP 113 / 74; Pulse 74; Resp 16 S; Pulse Ox 100% ; ha1 23:00 BP 132 / 79; Pulse 58; Resp 16; Pulse Ox 100% on R/A; ha1 18:27 Body Mass Index 37.79 (90.72 kg, 154.94 cm) kc6 NIH Stroke Scale Scores: 18:34 NIHSS Score: 2 kc6 MDM: 18:24 Patient medically screened. kb 21:01 Differential diagnosis: cva, ventura's palsy, generalized weakness. Data reviewed: vital kb signs, nurses notes. Consideration of Admission/Observation Patient was admitted/placed on observation. Escalation of care including admission/observation considered. Management of patient was discussed with the following: Hospitalist: Dr Staley accepts pt for admission. Switch Adjuster: Dr Zamora agrees with admission here if CT angios wnl. Historians other than the Patient: Parent: mother. Counseling: I had a detailed discussion with the patient and/or guardian regarding the historical points, exam findings, and any diagnostic results supporting the discharge/admit diagnosis, lab results, radiology results, the need for further work-up and treatment in the hospital. 01/14 18:41 Order name: Basic Metabolic Panel; Complete Time: 19:33 kb 01/14 18:41 Order name: CBC with Diff; Complete Time: 19:14 kb 01/14 18:41 Order name: Hepatic Function; Complete Time: 19:33 kb 01/14 18:41 Order name: Magnesium; Complete Time: 19:33 kb 01/14 18:41 Order name: Test, Urine kb 01/14 18:41 Order name: Protime (+inr); Complete Time: 19:13 kb 01/14 18:41 Order name: Ptt, Activated; Complete Time: 19:13 kb 01/14 18:41 Order name: Troponin High Sensitivity; Complete Time: 19:33 kb 01/14 18:41 Order name: Urinalysis w/ reflexes kb 01/14 21:37 Order name: Anti-Thrombin III Activity EDMS 01/14 21:37 Order name: C-ANCA Anti-Proteinase 3 EDMS 01/14 21:37 Order name: Cardiolipin Antibodies G,M EDMS 01/14 21:37 Order name: Factor V Leiden Mutation EDMS 01/14 21:37 Order name: Homocysteine EDMS 01/14 21:37 Order name: Liver (Hepatic) Function EDMS 01/14 21:37 Order name: Miscellaneous Test Lab EDMS 01/14 21:37 Order name: P-ANCA Anti-Myeloperoxidase Ab EDMS 01/14 21:37 Order name: Protein C Antigen EDMS 01/14 21:37 Order name: Protein Electo w/M Cristobal Serum EDMS 01/14 21:37 Order name: Protein S (Total EDMS 01/14 21:37 Order name: PROTHROMBIN GENE ANALYSIS (F2) EDMS 01/14 21:37 Order name: RPR EDMS 01/14 21:37 Order name: Thyroid Stimulating Hormone EDMS 01/14 21:37 Order name: Urine Drug Screen EDMS 01/14 21:37 Order name: Vitamin B12 Level EDMS 01/14 21:37 Order name: Vitamin D, 25 (OH), TOTAL EDMS 01/14 21:37 Order name: CBC with Automated Diff EDMS 01/14 21:37 Order name: CBC with Automated Diff EDMS 01/14 21:37 Order name: Comprehensive Metabolic Panel EDMS 01/14 21:37 Order name: Comprehensive Metabolic Panel EDMS 01/14 21:37 Order name: Lipid Profile EDMS 01/14 21:37 Order name: Lipid Profile EDMS 01/14 21:37 Order name: Magnesium EDMS 01/14 21:37 Order name: Magnesium EDMS 01/14 18:41 Order name: CT Head Brain wo Cont; Complete Time: 19:13 kb 01/14 18:41 Order name: Chest Single View XRAY; Complete Time: 19:19 kb 01/14 20:07 Order name: CT Head Angio; Complete Time: 20:39 kb 01/14 20:07 Order name: CT Neck Angio; Complete Time: 20:39 kb 01/14 21:37 Order name: Echo with Doppler EDKY 01/14 21:37 Order name: Stroke Protocol EDKY 01/14 21:37 Order name: CONS Physician Consult EDKY 01/14 21:37 Order name: Physical Therapy Consult EDKY 01/14 21:37 Order name: Speech Therapy Consult EDKY 01/14 18:41 Order name: Cardiac monitoring; Complete Time: 19:29 kb 01/14 18:41 Order name: EKG - Nurse/Tech; Complete Time: 19:29 kb 01/14 18:41 Order name: IV Saline Lock; Complete Time: 18:56 kb 01/14 18:41 Order name: Labs collected and sent; Complete Time: 18:56 kb 01/14 18:41 Order name: NPO; Complete Time: 18:43 kb 01/14 18:41 Order name: O2 Per Protocol; Complete Time: 18:43 kb 01/14 18:41 Order name: O2 Sat Monitoring; Complete Time: 18:43 kb EC:16 Rate is 79 beats/min. Rhythm is regular. QRS [place] is Normal. ME interval is normal at kb 158 msec. QRS interval is normal at 76 msec. QT interval is normal at 444 msec. Administered Medications: No medications were administered Disposition: 20:27 Co-signature as Attending Physician, Krystian Benítez MD I agree with the assessment and rn plan of care. PA/CHART CHANGER's history reviewed, patient interviewed, and examined. HPI: Patient presents with left facial weakness and right leg weakness and numbness. Reports subjective slurred speech. Has confirmed stroke back in 2019 that involved the right side of her body. No recent head injury. Sounds like her previous stroke happened shortly after head injury. My personal exam of patient reveals: Right upper and lower facial weakness present. No slurred speech. Right lower extremity drift and decreased sensation. NIH 3. I agree with assessment and care plan and confirm the diagnosis (es) above. Disposition Summary: 01/15/24 21:05 Hospitalization Ordered Notes: Hospitalization Status: Observation kb Provider: [place], Ebima kb Location: Telemetry/MedSurg (observation) kb Condition: Stable kb Problem: new kb Symptoms: are unchanged kb Bed/Room Type: Standard Room Assignment: 219(01/15/24 21:49) sp Diagnosis - Weakness kb - Slurred speech kb - Facial droop kb Forms: - Medication Reconciliation Form kb - SBAR form kb - Leadership Thank You Letter NIH Stroke Scale - NIH Stroke Score Date: 01/15/2024 Time: 18:34 Total Score = 2 10. Dysarthria (speech clarity - read or repeat words) - 0(Normal) 11. Extinction and Inattention (visual/tactile/auditory/spatial/personal) - 0(No abnormality) 1a. Level of Consciousness (LOC) - 0(Alert) 1b. Level of Consciousness (LOC) (Month \T\ Age) - 0(Both) 1c. LOC Commands (Open \T\ Closes Eyes/Early Breastfeeding Care Specialist) - 0(Both) 2. Best Gaze (Lateral Gaze Paresis) - 0(Normal) 3. Visual Field Loss - 0(No visual loss) 4. Facial Palsy - 1(Minor Paralysis) 5a. Left Arm: Motor (10-second hold) - 0(No drift) 5b. Right Arm: Motor (10-second hold) - 0(No drift) 6a. Left Leg: Motor (5-second hold - always test supine) - 0(No drift) 6b. Right Leg: Motor (5-second hold - always test supine) - 0(No drift) 7. Limb Ataxia (finger/nose \T\ heel/veloz - test with eyes open) - 0(Absent) 8. Sensory Loss (pinprick arms/legs/face) - 0(Normal) 9. Best Language: Aphasia (description/naming/reading) - 1(Mild to moderate aphasia) Initials: kc6 Signatures: Dispatcher [employer] EDMS Rosana Zelaya FNP-C FNP-Bouchra Walsh Roman, MD MD rn Blanchard, Shelby, RN RN ss Campbell, Kaitlyn, RN RN kc6 Corrections: (The following items were deleted from the chart) 18:42 18:42 BASIC METABOLIC PANEL+C.LAB.BRZ ordered. EDMS EDMS 18:42 18:42 CBC+H.LAB.BRZ ordered. EDMS EDMS 18:42 18:42 HEPATIC FUNCTION+C.LAB.BRZ ordered. EDMS EDMS 18:42 18:42 MAGNESIUM+C.LAB.BRZ ordered. EDMS EDMS 18:42 18:42 Test, Urine+UC.LAB.BRZ ordered. EDMS EDMS 18:42 18:42 PROTIME (+INR)+COAG.LAB.BRZ ordered. EDMS EDMS 18:42 18:42 PTT, ACTIVATED+COAG.LAB.BRZ ordered. EDMS EDMS 18:42 18:42 Troponin High Sensitivity+C.LAB.BRZ ordered. EDMS EDMS 18:42 18:42 Urinalysis+U.LAB.BRZ ordered. EDMS EDMS 18:42 18:42 Head Brain Wo Cont+CT.RAD.BRZ ordered. EDMS EDMS 18:42 18:42 Chest Single View+RAD.RAD.BRZ ordered. EDMS EDMS 21:49 21:05 kb sp
[2024-01-15] MEDS ORDERED: ONDANSETRON 4 MG/2 ML VIAL IV PRN (21:31)
[2024-01-15] MEDS: DIPYRIDAMOLE/ASPIRIN CAP ER PO SCH (21:31)
--- NOTE | 2024-01-15 21:45 | P.HP ---
Certification for Inpatient Patient admitted to: Inpatient With expected LOS: >2 Midnights Patient will require the following post-hospital care: None Practitioner: I am a practitioner with admitting privileges, knowledge of patient current condition, hospital course, and medical plan of care. Services: Services provided to patient in accordance with Admission requirements found in Title 42 Section 412.3 of the Code of Federal Regulations Patient History Date of Service: 01/15/24 Reason for admission: Left facial droop, right leg pain History of Present Illness: 38-year-old female with past medical history of CVA in 2019, etiology was not identified at the time, recurrent right leg paresthesia, on chronic aspirin and Plavix use, presented to the hospital today after developing slurred speech since the last 1 week, with associated left facial droop since yesterday. She states she did not do anything about it until she fell today while in the shower. Mother has noticed the patient had weakness also and has decided patient to come to the hospital. Patient admits to right leg pain since this am also. Right leg pain started after fall this am , pain is more around the knee . facial symptoms continue to persist at this time. On arrival in the ED vital signs were stable, blood pressure of 124/75, afebrile, EKG unremarkable, CT of the head shows no acute intracranial pathology, CTA head and neck shows no acute stenosis or aneurysm. Chest x-ray was clear. Laboratory workup with CBC and BMP were unremarkable. Neurology discussed with the patient admitted for further workup of presumed CVA. Allergies No Known Allergies Allergy (Verified 08/23/13 11:07) Home Medications: clonazePAM [Clonazepam] 1 mg PO BID 04/12/19 Aspirin [Aspirin EC 81 MG] 81 mg PO DAILY #30 tablet.dr 12/14/19 Atorvastatin Calcium [Lipitor] 10 mg PO BEDTIME #30 tab 12/14/19 Clopidogrel Bisulfate [Plavix*] 75 mg PO DAILY #30 tablet 12/14/19 Folic Acid 1 mg PO DAILY #30 tablet 12/14/19 - Past Medical/Surgical History Diabetic: No -: Borderline hypertension -: Anxiety disorder -: CVA unknown etiology -: NVDx3 2006, 2007, 2009 Psychosocial/ Personal History: Patient lives at home with family. - Social History Smoking Status: Never smoker Smoking therapy provided: No Patient receptive to therapy: No Alcohol use: No CD- Drugs: No Caffeine use: Yes Place of Residence: Home Review of Systems Musculoskeletal: Leg Pain Neurological: Weakness Physical Examination - Physical Exam General: Alert, In no apparent distress, Oriented x3, Cooperative, Other (Mild left facial droop, but symmetrical face) HEENT: Atraumatic, Normocephalic, PERRLA Neck: Supple, 2+ carotid pulse no bruit, JVD not distended Respiratory: Clear to auscultation bilaterally, Normal air movement Cardiovascular: Normal pulses, Regular rate/rhythm, Normal S1 S2 Gastrointestinal: Normal bowel sounds, Soft and benign, Non-distended, No ascites, No masses Musculoskeletal: No clubbing, No swelling Integumentary: No rashes, No breakdown Neurological: Normal strength at 5/5 x4 extr, Sensation intact, Abnormal speech (Mildly slowed,), Abnormal cranial nerve function (Mild facial eyelid weakness) - Studies Laboratory Data (last 24 hrs) 01/15/24 01/15/24 01/15/24 18:52 18:52 18:52 WBC 8.30 Hgb 12.7 Hct 38.8 Plt Count 210 PT 11.7 INR 1.07 APTT 30.4 Sodium 138 Potassium 3.5 BUN 8 Creatinine 0.69 Glucose 123 H Magnesium 2.3 Total Bilirubin 0.2 AST 27 ALT 59 H Alkaline Phosphatase 70 Assessment and Plan - Problems (Diagnosis) (1) Facial weakness due to acute cerebrovascular disease Current Visit: Yes Status: Acute - Plan Impression Presumed acute CVAwith left facial droop and right leg pain Anxiety disorder Plan Will admit patient to inpatient Neurology consult in a.m. Will admit for stroke protocol Bedside swallow eval Serology workup MRI brain in the a.m. Status empirical Aggrenox/aspirin today High-dose statin, follow lipid panel in a.m. TSH Pain control Lovenox for DVT prophylaxis Full code Dispo possible hospital stay for 24 to 48 hours Total time spent in evaluation of patient and discussion greater than 60 minutes - Advance Directives Does patient have a Living Will: No Does patient have a Durable POA for Healthcare: No Time Spent Managing Pts Care (In Minutes): 65
[2024-01-15] MEDS: D5 0.9 NS 1,000 ML IV SCH (22:00)
[2024-01-15 23:57] VITALS: BMI 39.9
[2024-01-16 03:11] LABS: RPR Titer ND
[2024-01-16 03:19] LABS: Absolute Basophils 0.1 K/uL (0-0.5); Absolute Eosinophils 0.1 K/uL (0-0.5); Absolute Lymphocytes (CBC) 2.1 K/uL (0.7-4.9); Absolute Monocytes 0.5 K/uL (0.1-1.3); Absolute Neutrophil 4.3 K/uL (1.8-8.0); Basophils % 0.8 % (0-1.3); Hematocrit 36.7 % (36.0-45.0); Hemoglobin 12.1 g/dL (12.0-15.0); Lymphocytes % 29.4 % (15.3-44.8); MCH 27.3 pg (27.0-35.0); MCV 82.7 fL (80-100); MPV 9.6 fL (7.6-11.3); Monocytes % 6.5 % (3.3-12.3); Neutrophils % 61.3 % (41.7-73.7); Nucleated Red Blood Cells % 0.1 % (0-0); Platelets 187 thou/uL (152-406); RBC Red Blood Cell Count 4.44 M/uL (3.86-4.86); Red Cell Distribution Width 16.1 % (12.1-15.2)
[2024-01-16 03:41] LABS: ALT/SGPT 49 U/L (13-56); AST/SGOT 20 U/L (15-37); Albumin 2.8 g/dL (3.4-5.0); Albumin/Globulin Ratio 0.9 (1.1-1.8); Alkaline Phosphatase 63 U/L (45-117); Anion Gap 6.6 mEq/L (5.0-15.0); BUN Blood Urea Nitrogen 7 mg/dL (7-18); Bicarbonate 23 mEq/L (21-32); Bilirubin Total 0.2 mg/dL (0.2-1.0); Globulin 3.1 g/dL (2.3-3.5); Glomerular Filtration Rate 115 ml/min (=/>90); Glucose Level 102 mg/dL (74-106); HDL Cholesterol 31 mg/dL (40-60); LDL Cholesterol, Calculated 113 mg/dL (<130); LDL Cholesterol,Calc NonReport 113; Potassium 3.6 mEq/L (3.5-5.1); Protein, Total 5.9 g/dL (6.4-8.2); Sodium Level 139 mEq/L (136-145)
[2024-01-16 03:50] LABS: Bilirubin Direct < 0.2 mg/dL (0-0.2)
[2024-01-16 04:25] LABS: RPR (Rapid Plasma Reagin) NON-REACT (NON-REACT)
[2024-01-16 07:18] LABS: Barbiturates NEGATIVE (NEGATIVE); Benzodiazepines POSITIVE (NEGATIVE); Cocaine NEGATIVE (NEGATIVE); METHAMPHETAM NEGATIVE (NEGATIVE); Methadone NEGATIVE (NEGATIVE); Opiates NEGATIVE (NEGATIVE); Phencyclidine NEGATIVE (NEGATIVE); Sqamous Epithelial <5 /HPF (None Seen); THC Cannibis NEGATIVE (NEGATIVE); Urine Bacteria None Seen /HPF (<20); Urine Bilirubin NEGATIVE (Negative); Urine Blood Trace (Negative); Urine Clarity Clear (Clear); Urine Color Light-Yellow (Yellow); Urine Culture Reflex Order NOT NEEDED; Urine Glucose NEGATIVE (Negative); Urine Ketones NEGATIVE (Negative); Urine Microscopic Reflex YN ORDER UMIC; Urine Mucus 1+ /HPF (None Seen); Urine Nitrite NEGATIVE (Negative); Urine Protein TRACE (Negative); Urine RBC <5 /HPF (None Seen); Urine Urobilinogen Normal (Normal); Urine WBC None Seen /HPF (<5); Urine pH 5.5 (5.0-7.0)
[2024-01-16 07:19] LABS: Specific Gravity > 1.030 (1.005-1.030)
[2024-01-16 07:20] LABS: Specific Gravity > 1.030 (1.005-1.030)
--- NOTE | 2024-01-16 08:55 | P.PN ---
Subjective Date of Service: 01/16/24 Chief Complaint: Left facial droop, right leg pain 38-year-old female with past medical history of CVA in 2019, etiology was not identified at the time, recurrent right leg paresthesia, on chronic aspirin and Plavix use, presented to the hospital today after developing slurred speech since the last 1 week, with associated left facial droop since yesterday. She states she did not do anything about it until she fell today while in the shower. Mother has noticed the patient had weakness also and has decided patient to come to the hospital. Patient admits to right leg pain since this am also. Right leg pain started after fall this am , pain is more around the knee . facial symptoms continue to persist at this time. Abnormal MRI suggestive of MS, will discuss with neurology, repeat MRI with contrast - Physical Exam General: Alert, In no apparent distress, Oriented x3, Cooperative, Other (Mild left facial droop, but symmetrical face) HEENT: Atraumatic, Normocephalic, PERRLA Neck: Supple, 2+ carotid pulse no bruit, JVD not distended Respiratory: Clear to auscultation bilaterally, Normal air movement Cardiovascular: Normal pulses, Regular rate/rhythm, Normal S1 S2 Gastrointestinal: Normal bowel sounds, Soft and benign, Non-distended, No ascites, No masses Musculoskeletal: No clubbing, No swelling Integumentary: No rashes, No breakdown Neurological: Normal strength at 5/5 x4 extr, Sensation intact, Abnormal speech (Mildly slowed,), Abnormal cranial nerve function (Mild facial eyelid weakness) Review of Systems per HPI Physical Examination - Vital Signs Temperature: 97.0 F Blood Pressure: 140/86 Pulse: 69 Respirations: 16 Pulse Ox (%): 99 - Studies Laboratory Data (last 24 hrs) 01/15/24 01/15/24 01/15/24 18:52 18:52 18:52 WBC 8.30 Hgb 12.7 Hct 38.8 Plt Count 210 PT 11.7 INR 1.07 APTT 30.4 Sodium 138 Potassium 3.5 BUN 8 Creatinine 0.69 Glucose 123 H Magnesium 2.3 Total Bilirubin 0.2 AST 27 ALT 59 H Alkaline Phosphatase 70 Assessment And Plan - Plan Assessment and Plan Facial weakness due to acute cerebrovascular disease Presumed acute CVAwith left facial droop and right leg pain Anxiety disorder MRI suggestive of MS Will repeat MRI with contrast Plan Will admit patient to inpatient PT eval Neurology consult in a.m. Will admit for stroke protocol Bedside swallow eval Serology workup MRI brain in the a.m. Status empirical Aggrenox/aspirin today High-dose statin, follow lipid panel in a.m. TSH Pain control Lovenox for DVT prophylaxis Full code Dispo possible hospital stay for 24 to 48 hours Discharge Plan: Home - Code Status/Comfort Care Code Status: Full Code Critical Care: No Time Spent Managing PTS Care (In Minutes): 35
[2024-01-16] MEDS: ASPIRIN EC 81 MG TAB PO SCH (09:00)
--- NOTE | 2024-01-16 09:31 | RAD REPORT ---
EXAM DESCRIPTION: MRI - Brain Wo Cont - 01/16/2024 9:20 am CLINICAL HISTORY: Facial droop, rule out CVA Headache, drowsiness COMPARISON: Head angio dated 01/15/2024; Brain W/Wo Cont dated 12/14/2019; MRA Head Wo Cont dated 12/14/19; Brain Wo Cont dated 07/11/2020 TECHNIQUE: Multi-sequence, multiplanar MR imaging of the brain was performed without contrast. FINDINGS: No intracranial hemorrhage, hydrocephalus or extra-axial fluid collections. There are nume antonette T2/hyperintense rounded and lobular lesions present in the periventricular white matter, largest posterior left centrum semiovale white matter measuring up to 19 mm. There are significantly greater number of lesions present compared to 07/11/2020 prior study. DWI is negative for acute CVA. Midline structures are normally formed. Small polypoid lesions are seen in both maxillary antra. IMPRESSION: Extensive nonspecific periventricular T2/FLAIR hyperintensities are present, several of which are somewhat orthogonal in orientation relative to lateral ventricles. This finding has signifi cantly progressed since 2019 and may represent demyelination/ multiple sclerosis. Recommend correlati on with clinical/ laboratory findings. No acute CVA or bleed.
[2024-01-16] MEDS: ENOXAPARIN 40 MG/0.4 ML SQ SCH (09:43)
[2024-01-16] MEDS: KCL 20 MEQ/100 mL IVPB 20 MEQ/100 ML BAG IV SCH (09:45)
--- NOTE | 2024-01-16 13:52 | RAD REPORT ---
EXAM DESCRIPTION: MRI - Brain With Cont - 01/16/2024 1:31 pm CLINICAL HISTORY: Facial droop. Left-sided weakness COMPARISON: Unenhanced MRI brain January 16, 2024 TECHNIQUE: Axial, sagittal, and coronal magnetic images of the brain were obtained. 20 cc MultiHance administered intravenously FINDINGS: Multiple, bilateral cerebral areas of enhancement are present within the brain. Small area of enhancement within malik is also present. The enhancement varies from a few millimeters to 12 mill imeters. Areas of abnormal signal on T2 weighted sequences throughout the brain have significantly progressed since 2019 IMPRESSION: Enhancing lesions scattered throughout the brain. This may indicate progression in multi ple sclerosis. Multiple areas of enhancement would then indicate active demyelinating plaques
[2024-01-16] MEDS: ATORVASTATIN 40 MG TAB PO SCH (21:07)
[2024-01-17 01:10] VITALS: O2SAT 99
[2024-01-17 03:38] LABS: Absolute Eosinophils 0.1 K/uL (0-0.5); Absolute Lymphocytes (CBC) 1.6 K/uL (0.7-4.9); Absolute Monocytes 0.4 K/uL (0.1-1.3); Absolute Neutrophil 3.4 K/uL (1.8-8.0); Basophils % 0.6 % (0-1.3); Eosinophils % 2.4 % (0-4.4); Hematocrit 35.5 % (36.0-45.0); Hemoglobin 11.6 g/dL (12.0-15.0); Lymphocytes % 28.3 % (15.3-44.8); MCHC 32.6 g/dL (32.0-36.0); MCV 82.7 fL (80-100); MPV 10.1 fL (7.6-11.3); Monocytes % 6.9 % (3.3-12.3); Neutrophils % 61.8 % (41.7-73.7); Platelets 168 thou/uL (152-406); RBC Red Blood Cell Count 4.29 M/uL (3.86-4.86); Red Cell Distribution Width 16.4 % (12.1-15.2)
[2024-01-17 04:08] LABS: Anion Gap 6.2 mEq/L (5.0-15.0); C-Reactive Protein 12.4 mg/L (<3.00); Magnesium 1.9 mg/dL (1.6-2.4); Potassium 3.2 mEq/L (3.5-5.1)
[2024-01-17] MEDS: POTASSIUM CL SA 10 MEQ TAB PO ONE (05:13)
--- NOTE | 2024-01-17 10:35 | P.PN ---
Subjective Date of Service: 01/18/24 Chief Complaint: Left facial droop, right leg pain 38-year-old female with past medical history of CVA in 2019, etiology was not identified at the time, recurrent right leg paresthesia, on chronic aspirin and Plavix use, presented to the hospital today after developing slurred speech since the last 1 week, with associated left facial droop since yesterday. She states she did not do anything about it until she fell today while in the shower. Mother has noticed the patient had weakness also and has decided patient to come to the hospital. Patient admits to right leg pain since this am also. Right leg pain started after fall this am , pain is more around the knee . facial symptoms improved, no weakness or visual changes Abnormal MRI suggestive of MS, will discuss with neurology, repeat MRI with contrast Scheduled for lumbar puncture 01/17 - Physical Exam General: Alert, In no apparent distress, Oriented x3, Cooperative, Other (Mild left facial droop, but symmetrical face) HEENT: Atraumatic, Normocephalic, PERRLA Neck: Supple, 2+ carotid pulse no bruit, JVD not distended Respiratory: Clear to auscultation bilaterally, Normal air movement Cardiovascular: Normal pulses, Regular rate/rhythm, Normal S1 S2 Gastrointestinal: Normal bowel sounds, Soft and benign, Non-distended, No ascites, No masses Musculoskeletal: No clubbing, No swelling Integumentary: No rashes, No breakdown Neurological: Normal strength at 5/5 x4 extr, Sensation intact, Abnormal speech (Mildly slowed,), Abnormal cranial nerve function (Mild facial eyelid weakness) Review of Systems per HPI Physical Examination - Vital Signs Temperature: 97.2 F Blood Pressure: 171/78 Pulse: 78 Respirations: 15 Pulse Ox (%): 100 Assessment And Plan - Plan Assessment and Plan Facial weakness due to acute cerebrovascular disease Presumed acute CVAwith left facial droop and right leg pain Anxiety disorder MRI suggestive of MS Will repeat MRI with contrast IMPRESSION: Enhancing lesions scattered throughout the brain. This may indicate progression in multiple sclerosis. Multiple areas of enhancement would then indicate active demyelinating plaques Follow-up with neurology after DC Plan Will admit patient to inpatient PT eval Neurology consult in a.m. Will admit for stroke protocol Bedside swallow eval Serology workup MRI brain in the a.m. Status empirical Aggrenox/aspirin today High-dose statin, follow lipid panel in a.m. TSH Pain control Lovenox for DVT prophylaxis Full code Dispo possible hospital stay for 24 to 48 hours Discharge Plan: Home Critical Care: No Time Spent Managing PTS Care (In Minutes): 35
--- NOTE | 2024-01-17 12:54 | ECHO ---
HEIGHT: 5 ft 1 in WEIGHT: 211 lb 8 oz DATE OF STUDY: 01/17/[address]: Julio Staley MD 2-DIMENSIONAL: YES M.MODE: YES DOPPLER: YES COLOR FLOW: YES TDS: PORTABLE: YES DEFINITY: BUBBLE STUDY: DIAGNOSIS: STROKE CARDIAC HISTORY: CATHERIZATION: NO SURGERY: NO PROSTHETIC VALVE: NO PACEMAKER: NO MEASUREMENTS (cm) DIASTOLIC (NORMALS) SYSTOLIC (NORMALS) IVSd 0.8 (0.6-1.2) LA Diam 2.7 (1.9-4.0) LVEF 64% LVIDd 4.6 (3.5-5.7) LVIDs 3.0 (2.0-3.5) %FS 35% LVPWd 0.8 (0.6-1.2) Ao Diam 2.4 (2.0-3.7) 2 DIMENSIONAL ASSESSMENT: RIGHT ATRIUM: NORMAL LEFT ATRIUM: NORMAL RIGHT VENTRICLE: NORMAL LEFT VENTRICLE: NORMAL TRICUSPID VALVE: NORMAL MITRAL VALVE: NORMAL PULMONIC VALVE: NORMAL AORTIC VALVE: NORMAL PERICARDIAL EFFUSION: NONE AORTIC ROOT: NORMAL LEFT VENTRICULAR WALL MOTION: NORMAL DOPPLER/COLOR FLOW: NORMAL COMMENTS: 1. NORMAL LEFT VENTRICULAR SYSTOLIC FUNCTION, EJECTION FRACTION 60-65%, NORMAL WALL MOTION 2. NORMAL DIASTOLIC FUCNTION TECHNOLOGIST: SABRINA JERONIMO
[2024-01-17] MEDS: ACETAMINOPHEN 500 MG TAB PO PRN (13:08)
--- NOTE | 2024-01-17 15:12 | EKG ---
Test Date: 2024-01-15 Test Time: 19:25:36 Chief Deputy Sheriff: AKIRA MEASUREMENT RESULTS: Intervals: Rate: 79 HI: 158 QRSD: 76 QT: 388 QTc: 444 [place]: P: 44 HI: 158 QRS: 30 T: 4 INTERPRETIVE STATEMENTS: Normal sinus rhythm Normal ECG Compared to ECG 08/04/2021 07:16:52 Sinus arrhythmia no longer present Electronically Signed On 01-17-24 15:07:00 CDT by Hira Prescott
[2024-01-18 09:08] VITALS: BP 171/78; TEMP 97.2
[2024-01-18 20:55] LABS: Homocysteine 4.3 umol/L (<10.4)
[2024-01-19 12:24] LABS: Abnormal Protein Band 1 REPORT; Albumin, (SPE) 3.2 g/dL (3.8-4.8); Alpha-1-Globulins 0.3 g/dL (0.2-0.3); Alpha-2-Globulins 0.7 g/dL (0.5-0.9); Beta 1 Globulin 0.4 g/dL (0.4-0.6); Gamma Globulins 0.6 g/dL (0.8-1.7); INTERPRETATION Consistent with; Total Protein 5.5 g/dL (6.1-8.1)
[2024-01-19 13:21] LABS: Protein C Antigen 120 % normal (70-140)
[2024-01-19 20:19] LABS: C-ANCA Anti-Proteinase 3 <1.0 AI (<1.0); P-ANCA Anti-Myeloperoxidase Ab <1.0 AI (<1.0)
[2024-01-20 05:31] LABS: Anti-Thrombin III Activity 90 % normal (80-135)
[2024-01-22 01:57] LABS: Factor V (Leiden) Interp REPORT; Factor V (Leiden) Result NEGATIVE
[2024-01-22 22:13] LABS: PGA INTERPRETATION REPORT; Prothrombin Gene Analysis Test NEGATIVE
== END 2024-01-17 18:38 | disposition left against medical advice (07) | DRG 66 ==
LOC: ER 18:21 → ERHOLD 21:30 → 2ND 22:17
PROVIDERS: ADMIT Internal Medicine; ATTEND Hospitalist
DX: I63.9 Cerebral infarction, unspecified (principal); I10 Essential (primary) hypertension; G35 Multiple sclerosis; F41.9 Anxiety disorder, unspecified; I69.341 Monoplegia of lower limb following cerebral infarction affecting right dominant side; R29.810 Facial weakness; R47.81 Slurred speech; R29.6 Repeated falls; R29.702 NIHSS score 2; Z91.81 History of falling; Z98.51 Tubal ligation status; Z79.02 Long term (current) use of antithrombotics/antiplatelets; Z53.29 Procedure and treatment not carried out because of patient's decision for other reasons; Z79.899 Other long term (current) drug therapy
CPT/HCPCS: 36415; 70450; 70496; 70498; 70551; 70552; 71045; 80048; 80053; 80061; 80076; 80307; 81001; 81025; 81240; 81241; 82248; 82306; 82607; 82947; 83090; 83516; 83735; 84132; 84165; 84443; 84484; 85025; 85300; 85302; 85305; 85306; 85610; 85730; 86021; 86140; 86146; 86147; 86592; 92610; 93005; 93306; 97116; 97161; 99285; A9577; J1650; J3480; J7042; Q9967